=== PATIENT | male | born 1955 | race Caucasian/White ===

== ENCOUNTER 2016-09-24 11:16 | Inpatient (IN) | payer MEDICARE, OTHER ==
[2016-09-24] MEDS ORDERED: ACETAMINOPHEN TAB 500 MG TAB PO STA (11:33)
--- NOTE | 2016-09-24 11:36 | ED ---
General Adult HPI - General Chief complaint: Fever Stated complaint: Altered Mental Time Seen by Provider: 09/24/16 11:19 Source: patient, EMS, RN notes reviewed Mode of arrival: EMS Limitations: altered mental status - History of Present Illness Initial comments: Patient is a pleasant 61-year-old male presenting to the emergency department from halfway. There are concerns for hyponatremia and change in mental status. EMS has concerns for audible rales. Patient reportedly was recently discharged with MRSA. Patient has limited verbal capability. - Related Data Home Medications Medication Instructions Recorded Confirmed Montelukast [Singulair] 10 mg PO HS 11/06/14 09/24/16 Acetaminophen Tab [Tylenol Tab] 650 mg PO Q4H PRN 09/24/16 09/24/16 Budesonide [Pulmicort] 0.5 mg INHALATION RT-BID 09/24/16 09/24/16 Divalproex [Depakote] 500 mg PO HS 09/24/16 09/24/16 Folic Acid/Multivit-Min/Lutein 1 tab PO DAILY 09/24/16 09/24/16 [Therapeutic-M Tablet] Ipratropium-Albuterol Nebulize 3 ml INHALATION Q4H 09/24/16 09/24/16 [Duoneb 0.5 mg-3 mg/3 ml Soln] Magnesium Oxide [Mag-Ox] 400 mg PO DAILY 09/24/16 09/24/16 Nystatin 100,000 Unit/ml Susp 5 ml PO QID 09/24/16 09/24/16 [Mycostatin Oral Susp] QUEtiapine FUMARATE [SEROquel] 25 mg PO QAM 09/24/16 09/24/16 QUEtiapine FUMARATE [SEROquel] 300 mg PO HS 09/24/16 09/24/16 guaiFENesin [Mucinex] 1,200 mg PO Q12H 09/24/16 09/24/16 Previous Rx's Medication Instructions Recorded Allopurinol [Zyloprim] 100 mg PO DAILY tab 04/11/16 Atorvastatin [Lipitor] 10 mg PO HS tab 04/11/16 Benztropine Mesylate [Cogentin] 1 mg PO DAILY #30 tab 04/11/16 Clopidogrel [Plavix] 75 mg PO DAILY tab 04/11/16 Allergies Allergy/AdvReac Type Severity Reaction Status Date / Time aspirin Allergy Severe Anaphylaxis Verified 09/24/16 11:26 Salicylates Allergy Severe Anaphylaxis Verified 09/24/16 11:26 iodine Allergy Dyspnea Verified 09/24/16 11:26 iohexol [From Omnipaque 140] Allergy Dyspnea Verified 09/24/16 11:26 Milk Containing Products Allergy Abdominal Verified 09/24/16 11:26 Pain, WHEEZING prednisone Allergy Confusion, Verified 09/24/16 11:26 SEMI COMATOSE strawberry Allergy Anaphylaxis Verified 09/24/16 11:26 chocolate Allergy Unknown Wheezing Uncoded 09/24/16 11:26 fresh corn Allergy Unknown Unknown Uncoded 09/24/16 11:26 nut Allergy Anaphylaxis Uncoded 09/24/16 11:26 Review of Systems ROS Statement: Those systems with pertinent positive or pertinent negative responses have been documented in the HPI. ROS Other: All systems not noted in ROS Statement are negative. Limitations: ROS unobtainable due to patients medical condition Constitutional: Reports: fever Respiratory: Reports: cough, dyspnea Neurological: Reports: confusion Past Medical History Past Medical History: Asthma, GERD/Reflux, Hearing Disorder / Deafness, Osteoarthritis (OA) Additional Past Medical History / Comment(s): GOUT History of Any Multi-Drug Resistant Organisms: None Reported Past Surgical History: Ear Surgery, Hernia Repair Additional Past Surgical History / Comment(s): ARTHRSCOPIC RIGHT AND LEFT SHOULDER, RIGHT FOOT Past Anesthesia/Blood Transfusion Reactions: Motion Sickness, Postoperative Nausea & Vomiting (PONV) Past Psychological History: Depression Additional Psychological History / Comment(s): NERVOUS BREAKDOWN R/T STEROID PRENISONE USE NOT ON MEDS NOW Smoking Status: Never smoker Past Alcohol Use History: None Reported Additional Past Alcohol Use History / Comment(s): drinked 6 pack a day in the pack in the past. pt quit 1991. Past Drug Use History: Marijuana - Past Family History Brother(s) Family Medical History: Hypertension Sister(s) Family Medical History: No Reported History Son(s) Family Medical History: No Reported History Father Family Medical History: Cancer, Hypertension Additional Family Medical History / Comment(s): FROM STOMACH CANCER Mother Family Medical History: COPD General Exam Limitations: altered mental status General appearance: alert Head exam: Present: atraumatic Eye exam: Present: normal appearance, PERRL ENT exam: Present: normal oropharynx Respiratory exam: Present: rales Cardiovascular Exam: Present: tachycardia GI/Abdominal exam: Present: soft. Absent: tenderness Extremities exam: Present: normal inspection Neurological exam: Present: alert, altered (Limited verbal capability. When asked his name he repeats "my name?"), other (Limited exam. No focal deficit.) Psychiatric exam: Present: flat affect Skin exam: Present: normal color Course Vital Signs 09/24/16 09/24/16 09/24/16 11:18 11:48 12:40 Temperature 101.2 F H 99.3 F Pulse Rate 106 H 95 Respiratory 18 18 16 Rate Blood Pressure 132/78 81/53 O2 Sat by Pulse 98 99 Oximetry 09/24/16 13:30 Temperature Pulse Rate 91 Respiratory 16 Rate Blood Pressure 93/55 O2 Sat by Pulse 97 Oximetry EKG Findings - EKG Comments: EKG Findings:: Sinus tach at 103. AL 172. QRS 90. QT 390. QTC 510. Normal axis. Normal QRS. Normal ST-T. Medical Decision Making - Medical Decision Making Patient does meet severe sepsis criteria. Patient has severe hyponatremia. Patient reevaluated. Case was again discussed with Dr. Dr. Arce, who will admit for Dr. Perez. 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 for hyponatremia - Lab Data Result diagrams: 09/24/16 11:33 09/24/16 11:33 Lab Results 09/24/16 09/24/16 09/24/16 Range/Units 11:33 11:33 11:33 WBC 5.3 (3.8-10.6) k/uL RBC 3.71 L (4.30-5.90) m/uL Hgb 12.5 L (13.0-17.5) gm/dL Hct 34.1 L (39.0-53.0) % MCV 92.1 (80.0-100.0) fL MCH 33.6 (25.0-35.0) pg MCHC 36.5 (31.0-37.0) g/dL RDW 13.4 (11.5-15.5) % Plt Count 100 L (150-450) k/uL Neutrophils % 68 % Lymphocytes % 14 % Monocytes % 14 % Eosinophils % 2 % Basophils % 0 % Neutrophils # 3.6 (1.3-7.7) k/uL Lymphocytes # 0.7 L (1.0-4.8) k/uL Monocytes # 0.7 (0-1.0) k/uL Eosinophils # 0.1 (0-0.7) k/uL Basophils # 0.0 (0-0.2) k/uL PT (9.0-12.0) sec INR (<1.1) APTT (22.0-30.0) sec Sodium (137-145) mmol/L Potassium (3.5-5.1) mmol/L Chloride (98-107) mmol/L Carbon Dioxide (22-30) mmol/L Anion Gap mmol/L BUN (9-20) mg/dL Creatinine (0.66-1.25) mg/dL Est GFR (MDRD) Af Amer (>60 ml/min/1.73 sqM) Est GFR (MDRD) Non-Af (>60 ml/min/1.73 sqM) Glucose (74-99) mg/dL Plasma Lactic Acid Lei (0.7-2.0) mmol/L Calcium (8.4-10.2) mg/dL Total Bilirubin (0.2-1.3) mg/dL AST (17-59) U/L ALT (21-72) U/L Alkaline Phosphatase (38-126) U/L Total Creatine Kinase 223 H (55-170) U/L CK-MB (CK-2) 3.5 H* (0.0-2.4) ng/mL CK-MB (CK-2) Rel Index 1.6 Troponin I <0.012 (0.000-0.034) ng/mL NT-Pro-B Natriuret Pep 126 pg/mL Total Protein (6.3-8.2) g/dL Albumin (3.5-5.0) g/dL Urine Color Urine Appearance (Clear) Urine pH (5.0-8.0) Ur Specific [place] (1.001-1.035) Urine Protein (Negative) Urine Glucose (UA) (Negative) Urine Ketones (Negative) Urine Blood (Negative) Urine Nitrite (Negative) Urine Bilirubin (Negative) Urine Urobilinogen (<2.0) mg/dL Ur Leukocyte Esterase (Negative) Influenza Type A RNA (Not Detectd) Influenza Type B (PCR) (Not Detectd) 09/24/16 09/24/16 09/24/16 Range/Units 11:33 11:33 11:33 WBC (3.8-10.6) k/uL RBC (4.30-5.90) m/uL Hgb (13.0-17.5) gm/dL Hct (39.0-53.0) % MCV (80.0-100.0) fL MCH (25.0-35.0) pg MCHC (31.0-37.0) g/dL RDW (11.5-15.5) % Plt Count (150-450) k/uL Neutrophils % % Lymphocytes % % Monocytes % % Eosinophils % % Basophils % % Neutrophils # (1.3-7.7) k/uL Lymphocytes # (1.0-4.8) k/uL Monocytes # (0-1.0) k/uL Eosinophils # (0-0.7) k/uL Basophils # (0-0.2) k/uL PT 11.3 (9.0-12.0) sec INR 1.1 (<1.1) APTT 29.3 (22.0-30.0) sec Sodium 111 L* (137-145) mmol/L Potassium 4.8 (3.5-5.1) mmol/L Chloride 77 L* (98-107) mmol/L Carbon Dioxide 25 (22-30) mmol/L Anion Gap 9 mmol/L BUN 18 (9-20) mg/dL Creatinine 0.72 (0.66-1.25) mg/dL Est GFR (MDRD) Af Amer >60 (>60 ml/min/1.73 sqM) Est GFR (MDRD) Non-Af >60 (>60 ml/min/1.73 sqM) Glucose 62 L (74-99) mg/dL Plasma Lactic Acid Lei 0.6 L (0.7-2.0) mmol/L Calcium 8.1 L (8.4-10.2) mg/dL Total Bilirubin 0.8 (0.2-1.3) mg/dL AST 51 (17-59) U/L ALT 27 (21-72) U/L Alkaline Phosphatase 74 (38-126) U/L Total Creatine Kinase (55-170) U/L CK-MB (CK-2) (0.0-2.4) ng/mL CK-MB (CK-2) Rel Index Troponin I (0.000-0.034) ng/mL NT-Pro-B Natriuret Pep pg/mL Total Protein 6.0 L (6.3-8.2) g/dL Albumin 3.2 L (3.5-5.0) g/dL Urine Color Urine Appearance (Clear) Urine pH (5.0-8.0) Ur Specific [place] (1.001-1.035) Urine Protein (Negative) Urine Glucose (UA) (Negative) Urine Ketones (Negative) Urine Blood (Negative) Urine Nitrite (Negative) Urine Bilirubin (Negative) Urine Urobilinogen (<2.0) mg/dL Ur Leukocyte Esterase (Negative) Influenza Type A RNA (Not Detectd) Influenza Type B (PCR) (Not Detectd) 09/24/16 09/24/16 Range/Units 11:47 11:47 WBC (3.8-10.6) k/uL RBC (4.30-5.90) m/uL Hgb (13.0-17.5) gm/dL Hct (39.0-53.0) % MCV (80.0-100.0) fL MCH (25.0-35.0) pg MCHC (31.0-37.0) g/dL RDW (11.5-15.5) % Plt Count (150-450) k/uL Neutrophils % % Lymphocytes % % Monocytes % % Eosinophils % % Basophils % % Neutrophils # (1.3-7.7) k/uL Lymphocytes # (1.0-4.8) k/uL Monocytes # (0-1.0) k/uL Eosinophils # (0-0.7) k/uL Basophils # (0-0.2) k/uL PT (9.0-12.0) sec INR (<1.1) APTT (22.0-30.0) sec Sodium (137-145) mmol/L Potassium (3.5-5.1) mmol/L Chloride (98-107) mmol/L Carbon Dioxide (22-30) mmol/L Anion Gap mmol/L BUN (9-20) mg/dL Creatinine (0.66-1.25) mg/dL Est GFR (MDRD) Af Amer (>60 ml/min/1.73 sqM) Est GFR (MDRD) Non-Af (>60 ml/min/1.73 sqM) Glucose (74-99) mg/dL Plasma Lactic Acid Lei (0.7-2.0) mmol/L Calcium (8.4-10.2) mg/dL Total Bilirubin (0.2-1.3) mg/dL AST (17-59) U/L ALT (21-72) U/L Alkaline Phosphatase (38-126) U/L Total Creatine Kinase (55-170) U/L CK-MB (CK-2) (0.0-2.4) ng/mL CK-MB (CK-2) Rel Index Troponin I (0.000-0.034) ng/mL NT-Pro-B Natriuret Pep pg/mL Total Protein (6.3-8.2) g/dL Albumin (3.5-5.0) g/dL Urine Color Yellow Urine Appearance Clear (Clear) Urine pH 7.5 (5.0-8.0) Ur Specific [place] 1.013 (1.001-1.035) Urine Protein Trace H (Negative) Urine Glucose (UA) Negative (Negative) Urine Ketones 3+ H (Negative) Urine Blood Negative (Negative) Urine Nitrite Negative (Negative) Urine Bilirubin Negative (Negative) Urine Urobilinogen <2.0 (<2.0) mg/dL Ur Leukocyte Esterase Negative (Negative) Influenza Type A RNA Not Detected (Not Detectd) Influenza Type B (PCR) Not Detected (Not Detectd) - Radiology Data Radiology results: image reviewed (T scan of the brain reveals no acute process. Chest x-ray shows left lower lobe infiltrate.) Critical Care Time Critical Care Time: Yes Total Critical Care Time: 34 Disposition Clinical Impression: Severe sepsis, Pneumonia, Hyponatremia Disposition: ADMITTED IP TO THIS HOSP Condition: Serious
[2016-09-24 11:49] LABS: Basophils % (A) 0 %; CH 33.6; CHCM 36.6; Eosinophils # (A) 0.1 k/uL (0-0.7); Eosinophils % (A) 2 %; HCT 34.1 % (39.0-53.0); HGB 12.5 gm/dL (13.0-17.5); Luc # (Auto) 0.11; Luc % (Auto) 2; Lymphocytes # (A) 0.7 k/uL (1.0-4.8); Lymphocytes % (A) 14 %; MCH 33.6 pg (25.0-35.0); MCHC 36.5 g/dL (31.0-37.0); MCV 92.1 fL (80.0-100.0); Monocytes # (A) 0.7 k/uL (0-1.0); Monocytes % (A) 14 %; Neutrophils # (A) 3.6 k/uL (1.3-7.7); Neutrophils % (A) 68 %; RBC 3.71 m/uL (4.30-5.90); RDW 13.4 % (11.5-15.5); WBC 5.3 k/uL (3.8-10.6); WBC (Perox) 5.11
[2016-09-24 11:57] LABS: Appearance,Urine Clear (Clear); Bilirubin,Urine Negative (Negative); Glucose,Urine (UA) Negative (Negative); Ketones,Urine 3+ (Negative); Leukocyte Esterase,Urine Negative (Negative); Nitrite,Urine Negative (Negative); PH, Urine 7.5 (5.0-8.0); Protein,Urine Trace (Negative); Specific Gravity,Urine 1.013 (1.001-1.035); UA Billing (MACRO vs. MICRO) CHEM; Urobilinogen,Urine <2.0 mg/dL (<2.0)
[2016-09-24 11:58] LABS: INR 1.1 (<1.1); Partial Thromboplastin Time 29.3 sec (22.0-30.0); Prothrombin Time 11.3 sec (9.0-12.0)
[2016-09-24] MEDS ORDERED: ACETAMINOPHEN IV (For NPO) 1,000 MG in SALINE 1 100ML.BAG IVPB STA (11:58)
[2016-09-24 12:02] LABS: ALT 27 U/L (21-72); AST 51 U/L (17-59); Alkaline Phosphatase 74 U/L (38-126); Anion Gap 9 mmol/L; Blood Urea Nitrogen 18 mg/dL (9-20); Calcium 8.1 mg/dL (8.4-10.2); Carbon Dioxide 25 mmol/L (22-30); Glucose 62 mg/dL (74-99); Non-African American GFR(MDRD) >60 (>60 ml/min/1.73 sqM); Potassium 4.8 mmol/L (3.5-5.1); Total Bilirubin 0.8 mg/dL (0.2-1.3)
[2016-09-24 12:07] LABS: Creatine Kinase 223 U/L (55-170)
[2016-09-24 12:10] LABS: Chloride 77 mmol/L (98-107); Sodium 111 mmol/L (137-145)
[2016-09-24] MEDS ORDERED: SODIUM CHLORIDE 0.9% 250 ML IV STA ×2 (12:12→14:41)
[2016-09-24] MEDS ORDERED: SODIUM CHLORIDE 0.9% 1,000 ML IV STA ×2 (12:12→14:12)
[2016-09-24 12:20] LABS: Troponin I <0.012 ng/mL (0.000-0.034)
[2016-09-24 12:30] LABS: Creatine Kinase MB 3.5 ng/mL (0.0-2.4)
--- NOTE | 2016-09-24 12:39 | XR ---
EXAMINATION TYPE: XR chest 2V DATE OF EXAM: 09/24/2016 12:34 PM COMPARISON: 04/05/2016 HISTORY: Shortness of breath TECHNIQUE: Frontal and lateral views of the chest are obtained. FINDINGS: Scattered senescent parenchymal changes noted. Hyperinflation compatible with COPD. Left lower lobe infiltrate. Correlate for pneumonia. Mild chronic elevation left hemidiaphragm. Heart size is stable. Mediastinal structures are stable and grossly unremarkable. No evidence for hilar prominence. Degenerative changes dorsal spine. IMPRESSION: 1. Left lower lobe infiltrate. Correlate for pneumonia. Radiographic follow-up until clearing is advi sed.
[2016-09-24] MEDS ORDERED: SODIUM CHLORIDE 0.9% 500 ML IV STA ×2 (12:53→14:41)
--- NOTE | 2016-09-24 13:14 | CT ---
EXAMINATION TYPE: CT brain wo con DATE OF EXAM: 09/24/2016 1:09 PM HISTORY: altered mental status CT DLP: 1121 mGycm. Automated Exposure Control for Dose Reduction was Utilized. TECHNIQUE: CT scan of the head is performed without contrast. COMPARISON: CT brain August 21, 2014. FINDINGS: There is no acute intracranial hemorrhage or midline shift identified. There is diffuse v entricular and sulcal prominence consistent with diffuse age-related cerebral atrophy. The globes ar e intact bilaterally. There is mucosal thickening involving bilateral ethmoid sinuses. There is mucos al thickening right sphenoid sinus and the anterior left sphenoid sinus. There is dependent opacifica tion with air-fluid levels in bilateral frontal sinuses. There is air-fluid level in left maxillary s inus. IMPRESSION:: No acute intracranial hemorrhage or midline shift. There is mild diffuse age-related c erebral atrophy and acute on chronic paranasal sinus disease all redemonstrated.
[2016-09-24] MEDS ORDERED: SODIUM CHLORIDE 0.9% 1,000 ML IV SCH (14:00)
[2016-09-24] MEDS ORDERED: LEVOFLOXACIN 750MG-D5W PMX 750 MG in DEXTROSE/WATER 1 150ML.BAG IVPB STA (14:00)
[2016-09-24] MEDS ORDERED: PNEUMONIA PROTOCOL UTILIZED 1 EACH MISC PO PRN (14:00)
[2016-09-24] MEDS ORDERED: ONDANSETRON 4 MG/2 ML VIAL IVP STA (15:33)
[2016-09-24] MEDS ORDERED: IPRATROPIUM-ALBUTEROL 3 ML NEB INHALATION SCH (16:00)
[2016-09-24] MEDS ORDERED: HYDROCORTISONE SUCCINATE 100 MG/2 ML VIAL IV SCH (16:00)
[2016-09-24] MEDS ORDERED: ACETAMINOPHEN TAB 325 MG TAB PO PRN (16:49)
[2016-09-24 18:04] LABS: ALT 33 U/L (21-72); AST 47 U/L (17-59); Alkaline Phosphatase 62 U/L (38-126); Anion Gap 8 mmol/L; Blood Urea Nitrogen 14 mg/dL (9-20); Calcium 7.5 mg/dL (8.4-10.2); Carbon Dioxide 21 mmol/L (22-30); Chloride 87 mmol/L (98-107); Glucose 72 mg/dL (74-99); Non-African American GFR(MDRD) >60 (>60 ml/min/1.73 sqM); Potassium 4.5 mmol/L (3.5-5.1); Total Bilirubin 0.7 mg/dL (0.2-1.3); Total Protein 5.5 g/dL (6.3-8.2)
[2016-09-24 18:13] LABS: Sodium 116 mmol/L (137-145)
[2016-09-24 18:18] LABS: Creatine Kinase 272 U/L (55-170)
[2016-09-24 18:30] LABS: Troponin I <0.012 ng/mL (0.000-0.034)
[2016-09-24 18:36] LABS: Creatine Kinase MB 3.6 ng/mL (0.0-2.4)
[2016-09-24] MEDS: IPRATROPIUM-ALBUTEROL 3 ML NEB INHALATION SCH ×2 (20:07→22:42)
[2016-09-24] MEDS: BUDESONIDE 0.5 MG/2 ML NEBU INHALATION SCH (20:07)
[2016-09-24] MEDS ORDERED: guaiFENesin 600 MG TABLET.ER PO SCH (21:00)
[2016-09-24] MEDS ORDERED: MONTELUKAST 10 MG TAB PO SCH (21:00)
[2016-09-24] MEDS ORDERED: HEPARIN SODIUM,PORCINE 5,000 UNIT/ML 1 ML VIAL SQ SCH (21:00)
--- NOTE | 2016-09-24 21:28 | CONS ---
DATE OF CONSULTATION: 09/24/2016 HISTORY OF PRESENT ILLNESS: The patient is a 61-year-old male who has a known history of severe asthma with COPD, where he was being treated for Pseudomonas and Tiffanie pneumoniae and was to continue with Fortaz twice a day at [facility]. He recently was discharged on Thursday09/22/2016 from [facility], where he had been there for 14 days. He had problems during his hospital course with steroid psychosis, where he was tried on Decadron. He eventually improved and was sent to [facility] for further antibiotic therapy. During his course there, he ended up with problems with acute mental status changes and was found to have sodium of 111 and chloride of 77. The patient is seen in the ED department at [facility], where he is more alert. He still does not quite recognize who I am, but otherwise he is coming around. He has quite tenacious purulent-type sputum, which will be sent for culture. He is ICU overflow. Infectious Disease and Psych have also been consulted. He is denying any chest pain or nausea, vomiting or diarrhea at this time. He does have a significant history of problems with GERD, deafness, bipolar I, history of TIA in the past, gout and history of MRSA in the past. He is followed by Dr. Mary Jane Choudhury in office. He does have a history of drinking in the past. He never smoked. He has used marijuana. He is somewhat pleasantly confused at this time. He initially had presented to [facility] with problems with shortness of breath and did have a PICC line insertion for his IV antibiotics. He briefly required a sitter for his steroid psychosis. He was also started on Depakote and Seroquel at that time. He was discharged with: 1. Tylenol. 2. Guaifenesin. 3. DuoNeb. 4. Nystatin. 5. Fortaz. 6. Seroquel and to continue with his home medications of 7. Allopurinol. 8. Cogentin. 9. Pulmicort. 10. Plavix. 11. Atorvastatin. 12. Singulair. 13. Vitamin B12 and 14. Thera-M. THE PATIENT IS FULL CODE. PATIENT'S ALLERGIES ARE MULTIPLE TO ASPIRIN, SALICYLATES, IODINE, IOHEXOL, MILK-CONTAINING PRODUCTS, PREDNISONE, STRAWBERRY, CHOCOLATE, FRESH CORN AND NUTS, IV STEROIDS. His home medications include: 1. Singular 10 mg at bedtime. 2. Mag-Ox 400 mg daily. 3. Depakote 500 mg at bedtime. 4. Plavix 75 mg daily. 5. Cogentin 1 mg daily. 6. Lipitor 10 mg at bedtime. 7. Zyloprim 100 mg daily. 8. Mucinex 1200 mg every 12 hours. 9. Seroquel 300 mg at bedtime and 25 mg daily. 10. Nystatin 5 mL q.i.d. for 3 more days. 11. DuoNeb q.4 hours. 12. Therapeutic-M daily. 13. Pulmicort twice a day and 14. Tylenol 650 mg every 4 hours as needed. FAMILY HISTORY: Significant for mother still being alive. Father from stomach cancer, where he had a history of hypertension. Mother has a history of COPD and he has 1 brother. SOCIAL HISTORY: The patient has 1 daughter, 1 son, alive and well. He has never smoked. He has done marijuana. He did drink about 6 beers daily in the past. He quit in 1991. He does reside with his mother. He has oxygen and nebulizer at home. He is . He used to work in a flower shop. He denies any recreational-type drugs. PAST SURGICAL HISTORY: Significant for Achilles tendon repair, hernia repair, myringotomy and bilateral rotator cuff repair, right foot surgery. PAST MEDICAL HISTORY: Significant for asthma, bowel obstruction, cellulitis, COPD, depression, GERD, gout, hearing disorder, H. pylori, hemorrhoids, hypothyroidism, motion sickness, OA, tendinitis, steroid psychosis, TIA. Review of systems was completed with patient. Head to toe assessment was done and is negative other than what is noted in his HPI . On physical examination, vital signs show temp 99.3, pulse 111, respiratory rate 16, blood pressure is 103/74 with noted low blood pressure of 75/52. Oxygen saturation 97% on 2L. LABS: WBC is 5.3, hemoglobin 12.5, hematocrit 34.1, platelets are 100. PT 11.3, INR 1.1. PTT 29.3. Sodium is 111, potassium 4.8, chloride 77, carbon dioxide 25, BUN 18, creatinine 0.72, glucose 62. Lactic acid is less than 0.05, calcium 8.1. Total bilirubin 0.8, AST 51, ALT 27, alkaline phosphatase 74. CK 223, CK-MB 3.5, CK relative index 1.6. Troponin less than 0.012. BNP is 126. Total protein 6, albumin 3.2. Influenza A and B are both not detected. Urine culture is pending. Brain CT scan shows no acute intracranial hemorrhage or midline shift with mild diffuse age-related cerebral atrophy and acute on chronic paranasal sinus disease, all re-demonstrated. Chest x-ray: Left lower lobe infiltrate, correlate for pneumonia. Radiographic followup until clearing is advised. GENERAL: He is a 61-year-old male who is waking up. He appears more alert at this time. HEENT: Head is atraumatic, normocephalic. Pupils are reactive. Mucous membranes slightly dry. NECK: Supple. Trachea is midline. No carotid bruits auscultated. Lung sounds with wheezes heard throughout. CARDIOVASCULAR: S1 and S2 is heard; regular. ABDOMEN: Soft. Bowel sounds are heard, nontender. EXTREMITIES: No edema. Dorsalis pedis pulses palpable. NEUROLOGIC: He is awake, alert. Some confusion. IMPRESSIONS: 1. Left lower lobe pneumonia with recent diagnosis of Pseudomonas and Tiffanie and has been on Fortaz. 2. Acute mental status changes. 3. Severe hyponatremia. Suspect large fluid ingestion. 4. Acute on chronic exacerbation of asthma/chronic obstructive pulmonary disease. 5. Bipolar I. 6. History recently of steroid psychosis. 7. Gastroesophageal reflux disease 8. History of acute respiratory failure PLAN: Labs will be ordered for the morning DuoNeb nebulizers will be ordered, Mucinex and Singulair. Will add GI and DVT prophylaxis Continue with antibiotic therapy. Will await for culture results for urine, blood and sputum. Oxygen to keep stats 92% or better. No steroids, as to his problems with psychosis. Will review his home medications and order as necessary. Thank you for the consultation. We will continue to follow patient closely with you and make further changes as necessary. I performed a history and physical examination of this patient and discussed the same with the dictator. I agree with the dictator's note. Any additional findings/opinions, etc. will be noted.
[2016-09-24] MEDS: QUEtiapine 100 MG TAB PO SCH (21:58)
[2016-09-24] MEDS: MONTELUKAST 10 MG TAB PO SCH (21:58)
[2016-09-24] MEDS: DIVALPROEX 500 MG TABLET.DR PO SCH (21:58)
[2016-09-24] MEDS: ATORVASTATIN 10 MG TAB PO SCH (21:59)
[2016-09-24] MEDS: NYSTATIN 100,000 UNIT/ML SUSP 500,000 UNIT/5 ML CUP PO SCH ×2 (21:59→23:41)
[2016-09-24] MEDS: guaiFENesin 600 MG TABLET.ER PO SCH (21:59)
[2016-09-24] MEDS ORDERED: IPRATROPIUM-ALBUTEROL 3 ML NEB INHALATION PRN (22:42)
[2016-09-24] MEDS ORDERED: IV VANCOMYCIN PER PHARMACY 1 EACH MISC MISCELLANE PRN (22:56)
[2016-09-24 23:35] VITALS: BMI 18.5
[2016-09-24] MEDS: HYDROCORTISONE SUCCINATE 100 MG/2 ML VIAL IV SCH (23:42)
[2016-09-25] MEDS ORDERED: VANCOMYCIN 1,500 MG in SODIUM CHLORIDE 0.9% 250 ML IVPB ONE ×2
[2016-09-25 00:37] LABS: Creatine Kinase 274 U/L (55-170)
[2016-09-25 00:49] LABS: Troponin I <0.012 ng/mL (0.000-0.034)
[2016-09-25 00:51] LABS: Creatine Kinase MB 4.4 ng/mL (0.0-2.4)
[2016-09-25] MEDS: PANTOPRAZOLE 40 MG TABLET PO SCH (06:35)
[2016-09-25 06:42] LABS: Basophils % (A) 0 %; CH 33.1; CHCM 34.3; Eosinophils % (A) 0 %; HCT 34.6 % (39.0-53.0); HDW 2.09; HGB 11.7 gm/dL (13.0-17.5); Luc # (Auto) 0.04; Luc % (Auto) 2; Lymphocytes # (A) 0.4 k/uL (1.0-4.8); Lymphocytes % (A) 19 %; MCH 32.7 pg (25.0-35.0); MCHC 33.7 g/dL (31.0-37.0); MCV 96.8 fL (80.0-100.0); Mean Platelet Volume 7.6; Monocytes # (A) 0.2 k/uL (0-1.0); Monocytes % (A) 9 %; Neutrophils # (A) 1.5 k/uL (1.3-7.7); Neutrophils % (A) 70 %; RBC 3.57 m/uL (4.30-5.90); RDW 13.9 % (11.5-15.5); WBC 2.1 k/uL (3.8-10.6); WBC (Perox) 2.37
[2016-09-25 07:01] LABS: ALT 25 U/L (21-72); AST 45 U/L (17-59); Alkaline Phosphatase 67 U/L (38-126); Anion Gap 8 mmol/L; Blood Urea Nitrogen 12 mg/dL (9-20); Calcium 8.3 mg/dL (8.4-10.2); Carbon Dioxide 27 mmol/L (22-30); Chloride 95 mmol/L (98-107); Glucose 116 mg/dL (74-99); Magnesium 2.2 mg/dL (1.6-2.3); Non-African American GFR(MDRD) >60 (>60 ml/min/1.73 sqM); Potassium 4.3 mmol/L (3.5-5.1); Sodium 130 mmol/L (137-145); Total Bilirubin 0.5 mg/dL (0.2-1.3); Total Protein 5.9 g/dL (6.3-8.2)
[2016-09-25] MEDS: BUDESONIDE 0.5 MG/2 ML NEBU INHALATION SCH ×2 (08:10→19:44)
[2016-09-25] MEDS: IPRATROPIUM-ALBUTEROL 3 ML NEB INHALATION SCH ×4 (08:10→19:44)
--- NOTE | 2016-09-25 09:03 | CONS ---
DATE OF CONSULTATION: 09/24/2016 REASON FOR CONSULTATION: Pneumonia. HISTORY OF PRESENT ILLNESS: The patient is a 61-year-old male who apparently was recently admitted to the [facility] where the patient was treated for a pseudomonas pneumonia. He has been getting Fortaz 2 grams every 8 hours. The patient currently has been at [facility] on the [place]. He was sent to the [facility] ER with mental status changes . The patient was brought to the ER and noticed to have a fever of 100.1 and he was noticed to be hypertensive requiring 2 fluid boluses. After fluid boluses the patient's blood pressure came up any he started getting more awake and alert. The patient continued to have a cough with significant amount of purulent sputum but no hemoptysis. Denied having any chest pain. Denies any nausea or vomiting. Denies any abdominal pain. No diarrhea. He is not a very good historian. The patient has been continued on Fortaz. ID was consulted for further recommendation regarding antibiotics. The patient did have a chest x-ray which showed evidence of left lower lobe pneumonia, though his white count was not significantly elevated. REVIEW OF SYSTEMS: Not reliably obtained because of his underlying mental status, though positives points have been made in the HPI. PAST MEDICAL HISTORY: Significant for asthma, COPD, depression, gastroesophageal reflux disease, gout, hypothyroidism, osteoarthritis, psychosis, TIA and recent pseudomonas pneumonia. PAST SURGICAL HISTORY: Achilles tendon repair, hernia repair, myringotomy, bilateral rotator cuff repair, right foot surgery. SOCIAL HISTORY: Significant for smoking, quit back in 1991. Currently was residing at [facility] on [facility]. FAMILY HISTORY: Father from stomach cancer. Mother with history of COPD. ALLERGIES: ASPIRIN,PENICILLIN. MEDICATIONS: 1. Tylenol. 2. DuoNeb. 3. Zyloprim. 4. Lipitor. 5. Cogentin. 6. Pulmicort. 7. Fortaz 2 g every 8 hours. 8. Depakote. 9. Lovenox. 10. Pepcid. 11. Mucinex. 12. SoluCortef. 13. Mag-Oxide. 14. Theragran. 15. Singulair. 16. Seroquel. 17. IV fluids. On examination, blood pressure 119/71 with a pulse of 95, temperature 98.7, T-max is 101.2. GENERAL DESCRIPTION: A middle-age male, looks older than his age, lying in bed, in no distress. No tachypnea or accessory muscles of respiration use. HEENT: Slight pallor. There is no scleral icterus. Oral mucous membrane dry. NECK: Trachea central. There is no thyromegaly. LUNGS: Unlabored breathing. Coarse breath sounds at left base. No wheeze. HEART: S1, S2. Regular rate and rhythm. ABDOMEN: Soft. No tenderness, no rigidity. EXTREMITIES: No edema of feet. SKIN EXAMINATION: No rash or mass palpable. NEUROLOGICAL: The patient is awake, alert, oriented x2. Mood and affect normal. LABS: Hemoglobin is 12.5, white count 5.3, BUN of 14, creatinine 0.61. Lactic acid 0.6. Urinalysis negative. Influenza A and B negative. Chest x-ray showing left lower lobe pneumonia. ASSESSMENT: Patient with sepsis in a patient admitted to the hospital with mental status changes, significant hypotension with systolic down to 80s, tachycardia with a heart rate of 106, fever of 101, meeting criteria for sepsis. Source is left lobe pneumonia. The patient has been recently admitted to the [facility] where apparently the culture was positive for Pseudomonas so the patient was on Fortaz. We need to cover for resistant Gram-positive pathogens in addition to gram-negative. PLAN: 1. Sputum culture has been repeated as well as blood cultures, sensitivity to follow. 2. Continue patient on Fortaz 2 g every 8 hours. Add vancomycin, pharmacy to dose with a target of 15. 3. Will follow up on the clinical condition and cultures to further adjust the medication if needed. Thank you for this consultation. I will follow this patient along with you. GENTRY
--- NOTE | 2016-09-25 09:15 | P.NPCON ---
History of Present Illness - Reason for Consult hyponatremia - History of Present Illness Reason for consultation: Hyponatremia History of present illness: Patient is a 61-year-old male seen in renal consultation for hyponatremia. His sodium at the time of admission on September 24 at 11 AM was 111. He received 2-1/2 L bolus of normal saline and was subsequently started on 0.9 saline at 50 mL an hour. Sodium level improved to 116 at 6 PM on September 24 and is up to 1:30 as of this morning. Patient presented from an [facility] with altered mental status and pneumonia. He is currently being treated for a left lower lobe pneumonia. GFR is at baseline with creatinine is 0.56 today. No vomiting or diarrhea. His oral intake is good. He does admit to drinking quite a bit of a water. He was hypotensive with systolic blood pressure as low as 70s on admission and is now improved in the range of 110-120 systolic. Patient is not a very reliable historian. Patient was recently admitted at [facility] and was treated for Pseudomonas pneumonia. Vital signs are stable. General: The patient appeared well nourished and normally developed. HEENT: Head exam is unremarkable. Neck is without jugular venous distension. LUNGS: Lungs are clear to auscultation and percussion. Breath sounds decreased. HEART: Rate and Rhythm are regular. First and second heart sounds normal. No murmurs, rubs or gallops. ABDOMEN: Abdominal exam reveals normal bowel sounds. Non-tender and non- distended. No evidence of peritonitis. EXTREMITITES: No clubbing, cyanosis, or edema. Past Medical History Past Medical History: Asthma, GERD/Reflux, Hearing Disorder / Deafness, Osteoarthritis (OA) Additional Past Medical History / Comment(s): GOUT History of Any Multi-Drug Resistant Organisms: None Reported Date of last positivie culture/infection: 09/22/2016 MDRO Source:: sputum Past Surgical History: Ear Surgery, Hernia Repair Additional Past Surgical History / Comment(s): ARTHRSCOPIC RIGHT AND LEFT SHOULDER, RIGHT FOOT Past Anesthesia/Blood Transfusion Reactions: Motion Sickness, Postoperative Nausea & Vomiting (PONV) Past Psychological History: Depression Additional Psychological History / Comment(s): NERVOUS BREAKDOWN R/T STEROID PRENISONE USE NOT ON MEDS NOW Smoking Status: Never smoker Past Alcohol Use History: None Reported Additional Past Alcohol Use History / Comment(s): drinked 6 pack a day in the pack in the past. pt quit 1991. Past Drug Use History: Marijuana - Past Family History Brother(s) Family Medical History: Hypertension Sister(s) Family Medical History: No Reported History Son(s) Family Medical History: No Reported History Father Family Medical History: Cancer, Hypertension Additional Family Medical History / Comment(s): FROM STOMACH CANCER Mother Family Medical History: COPD Medications and Allergies Home Medications Medication Instructions Recorded Confirmed Type Montelukast [Singulair] 10 mg PO HS 11/06/14 09/24/16 History Acetaminophen Tab [Tylenol Tab] 650 mg PO Q4H PRN 09/24/16 09/24/16 History Budesonide [Pulmicort] 0.5 mg INHALATION RT-BID 09/24/16 09/24/16 History Divalproex [Depakote] 500 mg PO HS 09/24/16 09/24/16 History Folic Acid/Multivit-Min/Lutein 1 tab PO DAILY 09/24/16 09/24/16 History [Therapeutic-M Tablet] Ipratropium-Albuterol Nebulize 3 ml INHALATION Q4H 09/24/16 09/24/16 History [Duoneb 0.5 mg-3 mg/3 ml Soln] Magnesium Oxide [Mag-Ox] 400 mg PO DAILY 09/24/16 09/24/16 History Nystatin 100,000 Unit/ml Susp 5 ml PO QID 09/24/16 09/24/16 History [Mycostatin Oral Susp] QUEtiapine FUMARATE [SEROquel] 25 mg PO QAM 09/24/16 09/24/16 History QUEtiapine FUMARATE [SEROquel] 300 mg PO HS 09/24/16 09/24/16 History guaiFENesin [Mucinex] 1,200 mg PO Q12H 09/24/16 09/24/16 History Allergies Allergy/AdvReac Type Severity Reaction Status Date / Time aspirin Allergy Severe Anaphylaxis Verified 09/24/16 11:26 Salicylates Allergy Severe Anaphylaxis Verified 09/24/16 11:26 iodine Allergy Dyspnea Verified 09/24/16 11:26 iohexol [From Omnipaque 140] Allergy Dyspnea Verified 09/24/16 11:26 Milk Containing Products Allergy Abdominal Verified 09/24/16 11:26 Pain, WHEEZING prednisone Allergy Confusion, Verified 09/24/16 11:26 SEMI COMATOSE strawberry Allergy Anaphylaxis Verified 09/24/16 11:26 chocolate Allergy Unknown Wheezing Uncoded 09/24/16 11:26 fresh corn Allergy Unknown Unknown Uncoded 09/24/16 11:26 nut Allergy Anaphylaxis Uncoded 09/24/16 11:26 Physical Exam Vitals: Vital Signs Temp Pulse Pulse Resp BP BP Pulse Ox 09/25/16 08:22 82 09/25/16 08:12 82 09/25/16 04:00 97.6 F 78 18 108/68 97 09/25/16 00:00 99.3 F 96 18 104/70 96 09/24/16 22:01 98.7 F 95 16 119/71 98 09/24/16 20:25 82 09/24/16 20:10 98.7 F 87 16 115/62 97 09/24/16 18:41 93 18 104/63 98 09/24/16 18:29 79 18 100/63 98 09/24/16 17:57 84 18 104/68 98 09/24/16 17:37 87 09/24/16 17:31 85 09/24/16 17:10 99.3 F 96 18 104/70 96 09/24/16 15:34 91 16 125/74 97 09/24/16 15:28 111 H 16 103/74 94 L 09/24/16 15:03 76 16 99/63 96 09/24/16 14:57 90 16 75/52 97 09/24/16 14:15 87 16 86/51 96 Intake and Output 09/24/16 09/25/16 09/25/16 22:59 06:59 14:59 Intake Total 360 Output Total 1200 Balance -1200 360 Intake: Oral 360 Output: Urine 1200 Other: Voiding Method Urinal # Voids 1 Weight 63.7 kg 63.7 kg Results - Lab Results Most recent lab results Calcium 8.3 mg/dL (8.4-10.2) L 09/25/16 06:06 Magnesium 2.2 mg/dL (1.6-2.3) 09/25/16 06:06 09/25/16 06:06 09/25/16 06:06 Assessment and Plan Plan: Assessment: #1. Hypovolemic hyponatremia which corrected rapidly with IV hydration. Sodium level CXI on admission on September 24 at 11 AM and is up to 1:30 on September 25 at 6 AM. #2. Sepsis secondary to left lower lobe pneumonia. Patient was recently diagnosed with Pseudomonas pneumonia. Plan: Discontinue normal saline. Start D5W to be run at 50 mL an hour. Repeat sodium level at 3 PM today. Check urine sodium, urine potassium, serum and urine osmolality. If sodium level not trending down, I will give him DDAVP to slow the correction of hyponatremia. Thank you for the consultation. I will continue to follow the patient with you during his hospital stay.
[2016-09-25] MEDS: BENZTROPINE MESYLATE 1 MG TAB PO SCH (09:18)
[2016-09-25] MEDS: MAGNESIUM OXIDE 400 MG TAB PO SCH (09:18)
[2016-09-25] MEDS: HYDROCORTISONE SUCCINATE 100 MG/2 ML VIAL IV SCH (09:18)
[2016-09-25] MEDS: ALLOPURINOL 100 MG TAB PO SCH (09:18)
[2016-09-25] MEDS: MULTIVITAMINS, THERA 1 EACH TAB PO SCH (09:18)
[2016-09-25] MEDS: CLOPIDOGREL 75 MG TAB PO SCH (09:18)
[2016-09-25] MEDS: FAMOTIDINE 20 MG TAB PO SCH (09:19)
[2016-09-25] MEDS: guaiFENesin 600 MG TABLET.ER PO SCH ×2 (09:19→20:17)
[2016-09-25] MEDS: QUEtiapine 25 MG TAB PO SCH (09:19)
[2016-09-25] MEDS: VANCOMYCIN 1,500 MG in SODIUM CHLORIDE 0.9% 250 ML IVPB SCH ×2 (09:27→16:39)
--- NOTE | 2016-09-25 10:26 | XR ---
EXAMINATION TYPE: XR chest 2V DATE OF EXAM: 09/25/2016 9:34 AM COMPARISON: Prior chest x-ray September HISTORY: Pneumonia TECHNIQUE: Frontal and lateral views of the chest are obtained. FINDINGS: There is no pleural effusion, or pneumothorax seen. Some patchy density suspected at the l eft lower lobe is thought to be improved. The cardiac silhouette size is within normal limits. Left-s ided PICC line is in place, distal tip is at the level of the cavoatrial junction. Biapical pleural t hickening is present. Prominent lung volume may be indicative of COPD. There is eventration of the le ft hemidiaphragm at the posterior aspect of the left hemithorax. There are overlying cardiac leads an d the patient is rotated. There may be spinal curvature. The osseous structures are intact. IMPRESSION: Improvement in aeration.
--- NOTE | 2016-09-25 12:46 | P.HPIM ---
History of Present Illness H&P Date: 09/24/16 Chief Complaint: Change in mental status, severe hyponatremia, left lower lobe pneumonia, fe 61-year-old male one of Dr. Perez's patient who was in the hospital from 09/08- 09/22/2016 for COPD exacerbation along with Pseudomonas and Tiffanie pneumonitis. Patient hospitalization was complicated by increased confusion secondary to psychosis from Decadron and steroid use. Patient had PICC line and was started on IV antibiotic for total of 7 days on Fortaz twice a day. Patient was sent to [facility] where he has been for the last week. He become with significant change in mental status the last few days especially the last 24 hours with more confusion not arousable not feeling well developed to have low-grade temperature with increased cough wheezes. His antibiotic was finished yesterday. Blood work was done today showed significant low sodium at 110. With his current symptoms decided to send patient to the emergency department to be evaluated was seen at [facility] chest x-ray revealed left lower lobe infiltrate. Temperature was 101.6. No significant elevated white blood cell CAT scan of the brain did not show any abnormality but surprisingly his sodium was still very low at 111. Patient is still not arousable still not doing well mentally. Started on IV hydration IV antibiotic and admit patient to the hospital for the above problem. Review of Systems Constitutional: Reports anorexia, Reports chronic headaches, Reports chronic pain, Reports daytime sleepiness, Reports fatigue, Reports fever, Reports lethargy, Reports malaise, Reports weakness, Reports weight loss, Denies as per HPI, Denies chills, Denies night sweats, Denies poor appetite, Denies sweats, Denies weight gain Eyes: bilateral as per HPI, bilateral blurred vision Ears: bilateral: decreased hearing, ear discharge Ears, nose, mouth and throat: Reports ant. neck pain, Reports nasal congestion, Reports nasal discharge, Reports sinus pressure, Denies as per HPI, Denies bleeding gums, Denies dental pain, Denies dysphagia, Denies epistaxis, Denies headache, Denies hoarseness, Denies mouth pain, Denies neck fullness/pressure, Denies neck lump, Denies nose pain, Denies odynophagia, Denies post-nasal drip, Denies sinus pain, Denies swelling in mouth, Denies swelling in throat, Denies sore throat, Denies vertigo, Denies voice changes Cardiovascular: Reports decreased exercise tolerance, Reports dyspnea on exertion, Reports edema, Reports high blood pressure, Reports irregular heart beat, Reports leg edema, Reports lightheadedness, Reports orthopnea, Reports paroxysmal nocturnal dyspnea, Reports rapid heart beat, Reports shortness of breath, Denies as per HPI, Denies chest pain, Denies claudication, Denies palpitations, Denies phlebitis, Denies syncope Respiratory: Reports congestion, Reports cough, Reports cough with sputum, Reports dyspnea, Reports respiratory infections, Reports wheezing, Denies as per HPI, Denies excessive sputum, Denies hemoptysis, Denies home oxygen, Denies pain, Denies pain on inspiration, Denies pleurisy, Denies sleep apnea, Denies snoring Gastrointestinal: Reports belching, Reports bloating, Reports dyspepsia, Reports indigestion, Reports nausea, Denies as per HPI, Denies abdominal pain, Denies BRBPR, Denies change in bowel habits, Denies coffee ground emesis, Denies constipation, Denies diarrhea, Denies early satiety, Denies excessive gas , Denies heartburn, Denies hematemesis, Denies hematochezia, Denies jaundice, Denies lactose intolerance, Denies loss of appetite, Denies melena, Denies vomiting Genitourinary: Reports nocturia, Reports polyuria, Reports urinary frequency, Denies as per HPI, Denies decreased libido, Denies difficulties fathering child , Denies discharge, Denies dysuria, Denies erectile dysfunction, Denies flank pain, Denies genital pain, Denies genital sores, Denies hematuria, Denies impotence, Denies incontinence, Denies kidney stones, Denies testicular lump, Denies testicular pain, Denies urinary hesitancy, Denies urinary retention Musculoskeletal: Reports limitation of motion, Reports low back pain, Reports neck pain, Reports neck stiffness, Denies as per HPI, Denies arm numbness/ tingling, Denies atrophy, Denies fractures, Denies frequent falls, Denies gait dysfunction, Denies hot joints, Denies leg numbness/tingling, Denies loss of height, Denies morning stiffness, Denies muscle cramps, Denies muscle weakness, Denies myalgias, Denies prior amputations, Denies redness of joints, Denies shooting arm pain, Denies shooting leg pain Integumentary: Reports rash, Reports sores, Denies as per HPI, Denies acne, Denies boils, Denies brittle nails, Denies change in hair/nails, Denies color changes, Denies darkening of skin, Denies depigmentation, Denies dryness, Denies foot/leg ulcers, Denies growths, Denies hirsutism, Denies lesions, Denies onychomycosis, Denies pruritus, Denies striae, Denies unusual bruising, Denies wounds Neurological: Reports ataxia, Reports change in mentation, Reports confusion, Reports gait dysfunction, Reports lack of coordination, Reports paresthesias, Reports spasticity, Reports tingling, Reports weakness, Denies as per HPI, Denies aphasia, Denies balance difficulties, Denies burning pain, Denies change in smell/taste, Denies change in speech, Denies convulsions, Denies double vision, Denies head injury, Denies headaches, Denies hearing difficulties, Denies loss of vision, Denies memory loss, Denies migraines, Denies motor disturbance, Denies numbness, Denies paralysis, Denies seizures, Denies sensory deficit, Denies syncope, Denies tic, Denies transient paralysis, Denies tremors , Denies vertigo, Denies visual changes Psychiatric: Reports anhedonia, Reports anxiety, Reports anxiety attacks, Reports confusion, Reports depression, Reports disorientation, Reports hypersomnia, Reports irritability, Reports memory loss, Reports sadness/ tearfulness, Reports sleep disturbances, Denies as per HPI, Denies change in appetite, Denies change in libido, Denies change in sleep habits, Denies difficulty concentrating, Denies hallucinations, Denies hopelessness, Denies insomnia, Denies mood swings, Denies paranoia, Denies suicidal ideation Endocrine: Reports cold intolerance, Reports fatigue, Reports heat intolerance, Reports high blood sugars, Reports palpitations, Reports polydipsia, Reports polyphagia, Reports polyuria, Denies as per HPI, Denies deepening of the voice, Denies excessive sweating, Denies excessive thirst, Denies flushing, Denies increase in ring/shoe/hat size, Denies low blood sugars, Denies nocturia, Denies proptosis, Denies recent glucocorticoid use, Denies thyroid mass, Denies weight change Hematologic/Lymphatic: Reports easy bruising, Denies as per HPI, Denies easy bleeding, Denies lymphadenopathy, Denies lymphedema, Denies thrombophilia Allergic/Immunologic: Reports allergic rhinitis, Denies as per HPI, Denies anaphylaxis, Denies angioedema, Denies gluten intolerance, Denies persistent infections, Denies seasonal allergies, Denies urticaria, Denies wheezing Past Medical History Past Medical History: Asthma, GERD/Reflux, Hearing Disorder / Deafness, Osteoarthritis (OA) Additional Past Medical History / Comment(s): GOUT History of Any Multi-Drug Resistant Organisms: None Reported Past Surgical History: Ear Surgery, Hernia Repair Additional Past Surgical History / Comment(s): ARTHRSCOPIC RIGHT AND LEFT SHOULDER, RIGHT FOOT Past Anesthesia/Blood Transfusion Reactions: Motion Sickness, Postoperative Nausea & Vomiting (PONV) Past Psychological History: Depression Additional Psychological History / Comment(s): NERVOUS BREAKDOWN R/T STEROID PRENISONE USE NOT ON MEDS NOW Smoking Status: Never smoker Past Alcohol Use History: None Reported Additional Past Alcohol Use History / Comment(s): drinked 6 pack a day in the pack in the past. pt quit 1991. Past Drug Use History: Marijuana - Past Family History Brother(s) Family Medical History: Hypertension Sister(s) Family Medical History: No Reported History Son(s) Family Medical History: No Reported History Father Family Medical History: Cancer, Hypertension Additional Family Medical History / Comment(s): FROM STOMACH CANCER Mother Family Medical History: COPD Medications and Allergies Home Medications Medication Instructions Recorded Confirmed Type Montelukast [Singulair] 10 mg PO HS 11/06/14 09/24/16 History Acetaminophen Tab [Tylenol Tab] 650 mg PO Q4H PRN 09/24/16 09/24/16 History Budesonide [Pulmicort] 0.5 mg INHALATION RT-BID 09/24/16 09/24/16 History Divalproex [Depakote] 500 mg PO HS 09/24/16 09/24/16 History Folic Acid/Multivit-Min/Lutein 1 tab PO DAILY 09/24/16 09/24/16 History [Therapeutic-M Tablet] Ipratropium-Albuterol Nebulize 3 ml INHALATION Q4H 09/24/16 09/24/16 History [Duoneb 0.5 mg-3 mg/3 ml Soln] Magnesium Oxide [Mag-Ox] 400 mg PO DAILY 09/24/16 09/24/16 History Nystatin 100,000 Unit/ml Susp 5 ml PO QID 09/24/16 09/24/16 History [Mycostatin Oral Susp] QUEtiapine FUMARATE [SEROquel] 25 mg PO QAM 09/24/16 09/24/16 History QUEtiapine FUMARATE [SEROquel] 300 mg PO HS 09/24/16 09/24/16 History guaiFENesin [Mucinex] 1,200 mg PO Q12H 09/24/16 09/24/16 History Allergies Allergy/AdvReac Type Severity Reaction Status Date / Time aspirin Allergy Severe Anaphylaxis Verified 09/24/16 11:26 Salicylates Allergy Severe Anaphylaxis Verified 09/24/16 11:26 iodine Allergy Dyspnea Verified 09/24/16 11:26 iohexol [From Omnipaque 140] Allergy Dyspnea Verified 09/24/16 11:26 prednisone Allergy Confusion, Verified 09/24/16 11:26 SEMI COMATOSE nut Allergy Anaphylaxis Uncoded 09/24/16 11:26 Physical Exam Vitals: Vital Signs Pulse Resp BP Pulse Ox 09/24/16 18:41 93 18 104/63 98 09/24/16 18:29 79 18 100/63 98 09/24/16 17:57 84 18 104/68 98 09/24/16 17:37 87 09/24/16 17:31 85 09/24/16 15:34 91 16 125/74 97 09/24/16 15:28 111 H 16 103/74 94 L 09/24/16 15:03 76 16 99/63 96 09/24/16 14:57 90 16 75/52 97 09/24/16 14:15 87 16 86/51 96 - Constitutional General appearance: no average body habitus, no cooperative, disheveled, mild distress, no morbidly obese, no no acute distress, no obese, no severe distress , no thin - EENT Eyes: abnormal pupil, no anicteric sclerae, no disc margins sharp, no edentulous , no EOMI, no PERRLA, no fundus normal, no photophobia, no dentition normal, no poor dentition, no ptosis, no scleral icterus, normal appearance ENT: no hard of hearing, no hearing grossly normal, no NA/AT, normal oropharynx , no other, no pharyngeal erythema, no thrush, no tonsillar exudates, no tonsillar swelling Ears: bilateral: normal, bulging - Neck Neck: no lymphadenopathy, normal ROM, no other, no rigidity, no stridor, no thyromegaly Carotids: bilateral: upstroke normal Thyroid: bilateral: normal size - Respiratory Respiratory: right: prolonged expiration, prolonged inspiration, bilateral: diminished, dullness, rales, rhonchi - Cardiovascular Rhythm: irregularly irregular Heart sounds: normal: S1, S2 Abnormal Heart Sounds: systolic murmur, S3 Gallop - Gastrointestinal General gastrointestinal: no absent bowel sounds, decreased bowel sounds, distended, no hepatomegaly, no hyperactive bowel sounds, normal bowel sounds, no organomegaly, no rigid, no scaphoid, soft, no splenomegaly, no tenderness, no umbilical hernia, no ventral hernia - Integumentary Integumentary: no calor, no cellulitis, no cyanotic, no decreased turgor, no flushed, no jaundiced, normal, no normal turgor, pale, rash, no ulcer - Neurologic Neurologic: CNII-XII intact - Musculoskeletal Musculoskeletal: no gait normal, generalized weakness, strength equal bilaterally, no right sided weakness, no left sided weakness - Psychiatric Psychiatric: A&O x's 3, no appropriate affect, no intact judgment & insight Results CBC & Chem 7: 09/25/16 06:06 09/25/16 06:06 Labs: Abnormal Lab Results - Last 24 Hours (Table) 09/24/16 09/24/16 09/24/16 Range/Units 15:20 17:38 17:42 Sodium 116 L* (137-145) mmol/L Chloride 87 L (98-107) mmol/L Carbon Dioxide 21 L (22-30) mmol/L Creatinine 0.61 L (0.66-1.25) mg/dL Glucose 72 L (74-99) mg/dL Plasma Lactic Acid Lei <0.5 L (0.7-2.0) mmol/L Calcium 7.5 L (8.4-10.2) mg/dL Total Creatine Kinase 272 H (55-170) U/L CK-MB (CK-2) 3.6 H* (0.0-2.4) ng/mL Total Protein 5.5 L (6.3-8.2) g/dL Albumin 2.8 L (3.5-5.0) g/dL Microbiology - Last 24 Hours (Table) 09/24/16 16:33 Sputum Culture - Preliminary Sputum Thrombosis Risk Factor Assmnt - DVT/VTE Prophylaxis DVT/VTE Prophylaxis: Pharmacologic Prophylaxis ordered, Mechanical Prophylaxis ordered Assessment and Plan Plan: 1 change in mental status: Most likely secondary to hyponatremia, pneumonia, infection and possible adrenal insufficiency try to treat all of the above. 2 severe hyponatremia most likely SIADH from his current current pneumonia and recurrent pneumonia as well patient also had most likely adrenal insufficiency especially with the use of steroids recently. Continue hydration repeat his sodium level daily we'll consult nephrology. 3 gram-negative pneumonia with recurrent symptoms: Despite having to use Fortaz through the IV for 7 days after his discharge from the hospital patient is still symptomatic and have high temperature today probably aspiration from new type of pneumonia will continue Fortaz for now we'll consult infectious disease repeat chest x-ray in CAT scan if needed. 4 possible adrenal insufficiency: With patient's current symptom will use hydrocortisone 100 mg every 8 hours for the next 24 hours and then cut down gradually without having to use or utilize Decadron or steroid if possible because of the event of psychosis last admission. 5 chronic history of bipolar disorders with acute psychosis: Has been on multiple medication was on Depakote Last time still currently on Seroquel along with Depakote 500 mg daily and Seroquel 200 mg a day. And Cogentin 1 mg daily. 6 COPD with mild exacerbation was off steroids from his last admission remain on Singulair along with DuoNeb and possible Pulmicort. 7 hyperlipidemia: Continue Lipitor 10 mg daily. 8 history of TIA: Has been on Plavix 75 mg daily. 9 chronic history of thrombocytopenia has been monitor doing lab on regular basis will try to avoid heparin subcutaneous if we can. 10 GI prophylaxis: Patient be on Pepcid 20 mg daily. 11 DVT prophylaxis: With his history of thrombocytopenia we'll avoid heparin but can use knee-high ROMI hose and Venodyne boots and if needed can use Lovenox 40 mg subcutaneous daily. CODE STATUS: Full code. Expectation from this admission: Patient in the hospital for more than 2 nights.
[2016-09-25] MEDS: NYSTATIN 100,000 UNIT/ML SUSP 500,000 UNIT/5 ML CUP PO SCH ×4 (13:01→22:42)
[2016-09-25] MEDS: DEXTROSE 5% IN WATER 1,000 ML IV SCH (13:02)
--- NOTE | 2016-09-25 13:07 | P.PN ---
Subjective 61-year-old male one of Dr. Perez's patient who was in the hospital from 09/08- 09/22/2016 for COPD exacerbation along with Pseudomonas and Tiffanie pneumonitis. Patient hospitalization was complicated by increased confusion secondary to psychosis from Decadron and steroid use. Patient had PICC line and was started on IV antibiotic for total of 7 days on Fortaz twice a day. Patient was sent [facility] where he has been for the last week. He become with significant change in mental status the last few days especially the last 24 hours with more confusion not arousable not feeling well developed to have low-grade temperature with increased cough wheezes. His antibiotic was finished yesterday. Blood work was done today showed significant low sodium at 110. With his current symptoms decided to send patient to the emergency department to be evaluated was seen at [facility] chest x-ray revealed left lower lobe infiltrate. Temperature was 101.6. No significant elevated white blood cell CAT scan of the brain did not show any abnormality but surprisingly his sodium was still very low at 111. Patient is still not arousable still not doing well mentally. Started on IV hydration IV antibiotic and admit patient to the hospital for the above problem. 09/25: Patient has been seen in consultation by Dr. Vargas with recommendations to continue Fortaz and added in vancomycin. Patient is also seen and followed by pulmonary medicine on continued on Pulmicort and DuoNeb treatments. Sodium is much improved to 130 and chloride 95. White count is down to 2.1. Platelet count is 100 Objective - Vital Signs Vital signs: Vital Signs Temp 97.6 F 09/25/16 04:00 Pulse 84 09/25/16 12:30 Resp 16 09/25/16 08:00 BP 112/60 09/25/16 08:00 Pulse Ox 95 09/25/16 08:00 Intake & Output 09/24/16 09/25/16 09/25/16 18:59 06:59 18:59 Intake Total 360 Output Total 1200 200 Balance -1200 160 Weight 63.7 kg 63.7 kg 63.7 kg Intake: Oral 360 Output: Urine 1200 200 Other: Voiding Method Urinal Urinal # Voids 1 # Bowel Movements 0 - Exam General appearance: no average body habitus, no cooperative, disheveled, mild distress, no morbidly obese, no no acute distress, no obese, no severe distress , no thin - EENT Eyes: abnormal pupil, no anicteric sclerae, no disc margins sharp, no edentulous , no EOMI, no PERRLA, no fundus normal, no photophobia, no dentition normal, no poor dentition, no ptosis, no scleral icterus, normal appearance ENT: no hard of hearing, no hearing grossly normal, no NA/AT, normal oropharynx , no other, no pharyngeal erythema, no thrush, no tonsillar exudates, no tonsillar swelling Ears: bilateral: normal, bulging - Neck Neck: no lymphadenopathy, normal ROM, no other, no rigidity, no stridor, no thyromegaly Carotids: bilateral: upstroke normal Thyroid: bilateral: normal size - Respiratory Respiratory: right: prolonged expiration, prolonged inspiration, bilateral: diminished, dullness, rales, rhonchi - Cardiovascular Rhythm: irregularly irregular Heart sounds: normal: S1, S2 Abnormal Heart Sounds: systolic murmur, S3 Gallop - Gastrointestinal General gastrointestinal: no absent bowel sounds, decreased bowel sounds, distended, no hepatomegaly, no hyperactive bowel sounds, normal bowel sounds, no organomegaly, no rigid, no scaphoid, soft, no splenomegaly, no tenderness, no umbilical hernia, no ventral hernia - Integumentary Integumentary: no calor, no cellulitis, no cyanotic, no decreased turgor, no flushed, no jaundiced, normal, no normal turgor, pale, rash, no ulcer - Neurologic Neurologic: CNII-XII intact - Musculoskeletal Musculoskeletal: no gait normal, generalized weakness, strength equal bilaterally, no right sided weakness, no left sided weakness - Psychiatric Psychiatric: A&O x's 3, no appropriate affect, no intact judgment & insight - Labs CBC & Chem 7: 09/25/16 06:06 09/25/16 06:06 Labs: Abnormal Lab Results - Last 24 Hours (Table) 09/24/16 09/24/16 09/24/16 Range/Units 15:20 17:38 17:42 WBC (3.8-10.6) k/uL RBC (4.30-5.90) m/uL Hgb (13.0-17.5) gm/dL Hct (39.0-53.0) % Plt Count (150-450) k/uL Lymphocytes # (1.0-4.8) k/uL Sodium 116 L* (137-145) mmol/L Chloride 87 L (98-107) mmol/L Carbon Dioxide 21 L (22-30) mmol/L Creatinine 0.61 L (0.66-1.25) mg/dL Glucose 72 L (74-99) mg/dL Plasma Lactic Acid Lei <0.5 L (0.7-2.0) mmol/L Calcium 7.5 L (8.4-10.2) mg/dL Total Creatine Kinase 272 H (55-170) U/L CK-MB (CK-2) 3.6 H* (0.0-2.4) ng/mL Total Protein 5.5 L (6.3-8.2) g/dL Albumin 2.8 L (3.5-5.0) g/dL 09/24/16 09/25/16 09/25/16 Range/Units 23:38 06:06 06:06 WBC 2.1 L (3.8-10.6) k/uL RBC 3.57 L (4.30-5.90) m/uL Hgb 11.7 L (13.0-17.5) gm/dL Hct 34.6 L (39.0-53.0) % Plt Count 100 L (150-450) k/uL Lymphocytes # 0.4 L (1.0-4.8) k/uL Sodium 130 L (137-145) mmol/L Chloride 95 L (98-107) mmol/L Carbon Dioxide (22-30) mmol/L Creatinine 0.56 L (0.66-1.25) mg/dL Glucose 116 H (74-99) mg/dL Plasma Lactic Acid Lei (0.7-2.0) mmol/L Calcium 8.3 L (8.4-10.2) mg/dL Total Creatine Kinase 274 H (55-170) U/L CK-MB (CK-2) 4.4 H* (0.0-2.4) ng/mL Total Protein 5.9 L (6.3-8.2) g/dL Albumin 3.1 L (3.5-5.0) g/dL Microbiology - Last 24 Hours (Table) 09/24/16 16:33 Gram Stain - Preliminary Sputum Sputum Culture - Preliminary Assessment and Plan Plan: 1 metabolic encephalopathy: Most likely secondary to hyponatremia, pneumonia, infection and possible adrenal insufficiency try to treat all of the above. Patient started on Cortef 10 mg twice daily. 2 severe hypovolemic hyponatremia. Patient is followed by nephrology. 3 gram-negative pneumonia and sepsis. Consults with infectious disease and pulmonary medicine appreciated. Patient is currently on Fortaz and vancomycin. 4 possible adrenal insufficiency: Cortef 10 mg twice daily started. 5 chronic history of bipolar disorders with acute psychosis: Has been on multiple medication was on Depakote Last time still currently on Seroquel along with Depakote 500 mg daily and Seroquel 200 mg a day. And Cogentin 1 mg daily. 6 COPD with mild exacerbation was off steroids from his last admission remain on Singulair along with DuoNeb and possible Pulmicort. 7 hyperlipidemia: Continue Lipitor 10 mg daily. 8 history of TIA: Has been on Plavix 75 mg daily. 9 chronic history of thrombocytopenia has been monitor doing lab on regular basis will try to avoid heparin subcutaneous if we can. 10 GI prophylaxis: Patient be on Pepcid 20 mg daily. 11 DVT prophylaxis: With his history of thrombocytopenia we'll avoid heparin but can use knee-high ROMI hose and Venodyne boots and if needed can use Lovenox 40 mg subcutaneous daily. CODE STATUS: Full code. Discharge plan: Return to [facility] Impression and plan of care have been directed as dictated by the signing physician. Lela Valdovinos nurse practitioner acting as scribe for signing physician. Time with Patient: Greater than 30
--- NOTE | 2016-09-25 15:20 | P.CN ---
Psychiatric Consult - . Consult date: 09/25/16 Consult:: IDENTIFYING DATA: He is a 61-year-old male admitted to medicine service from [facility] with mental status changes most likely related to a left lower lobe infiltrate. Medicine consulted psychiatry for evaluation of mental status changes and recommendation for the treatment of his chronic mental illness. HISTORY OF PRESENT ILLNESS: I reviewed the medical record and attempted to interview Mr. Zuleta. He was unable to provide a coherent history. He alleged she was living with his mother prior to admission and came to the hospital because he was feeling unwell. He has since improved and is "almost back to normal." He remembers having been discharged from the psychiatric unit in April of last year. He did not follow through with his outpatient appointment because he "did not want to." He also did not continue his psychotropic medications deliberately. He denied feeling depressed or having thoughts of or suicide. He denied homicidal ideation. He denied feeling persistently anxious, tense or nervous. He denied obsessions or compulsions. He denied psychotic symptoms such as auditory or visual hallucinations, ideas reference, thought insertion, thought broadcasting or thought control. He denied use of drugs or alcohol. PAST PSYCHIATRIC HISTORY: According to EMR he is had 3 admissions to the psychiatric unit; June 2014, August 2014, and April 2016. 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 His discharge medications from April 2016 included Haldol 5 mg and Seroquel 100 mg at bedtime. He had an appointment on 04/14/[address] [facility] with [address]. Bruno. SUBSTANCE USE HISTORY: He denied use of drugs and according to the medical record he has been abstinent from alcohol and drugs for "23 years". MENTAL STATUS EXAM: He presented as a frail-appearing 61-year-old male who was sitting comfortably in his hospital bed. He made eye contact but at times he did not appear to attend or concentrate on the interview. He had no distinguishing features or prominent physical abnormalities. He had a euphoric facial expression. He was alert and oriented to person, place and time. He showed no abnormality of psychomotor activity. His speech was spontaneous with increased rate and rhythm. He had no articulation difficulties. His affect was elevated but appropriate. He denied suicidal ideation or wishes. He denied homicidal ideation. He denied depressive cognitions such as hopelessness, helplessness or worthlessness. He did not express phobias, ideas reference, paranoid ideation or delusional thinking. His thinking was concrete and associations were not fully coherent or logical. He did not express perseveration, clang associations, neologisms or blocking. He denied hallucinations and did not appear to responding to internal stimuli. We completed the [facility] Orientation Memory and Concentration test. His total error score was 18; total error score greater than 10 is consistent with a dementia. I am uncertain whether the test results a reliable due to his difficulties with attention and concentration. He knew the month and year. He was able to register the memory phrase "Darío Rodriguez, [address] [place] [id number].". He estimated that time correctly without hour of the actual time. He did not, backwards successfully from 20. He stopped it way and appeared distracted by events in the room. He was unable to name the months of the year backwards ( beginning with May). He did not make an effort to complete the task. He did not recall the memory phrase. IMPRESSIONS: He is a 61-year-old male admitted to medicine service with change and mental status most likely related to a mean he acquired pneumonia. He has history of a psychiatric illness with multiple admissions to the psychiatric unit. He has a history of COPD that required periodic treatment with oral steroids. Two of his admissions to psychiatry were the result of treatment with steroids. 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 During our interview showed impairments in mentation, concentration and attention. He was easily distracted. His affect was inappropriately elevated. His thinking was not fully coherent or logical. His symptoms are consistent with a symone/hypomania but he may be also experiencing some cognitive impairments. I am certain of the cognitive impairments are transitory and related to his medical condition or result of a degenerative process. DIAGNOSES: Unspecified neurocognitive disorder, rule out delirium, unspecified bipolar disorder PLAN: Obtain a serum valproic acid level and adjust the dose of Depakote to achieve a serum valproic acid level greater than 60. He is not prescribed or taking a first generation antipsychotic; unless there is another reason for the Cogentin prescription not recommend to discontinue Cogentin. Will follow. 09/25/16 14:57
[2016-09-25] MEDS: ENOXAPARIN 40 MG/0.4 ML SYRINGE SQ SCH (16:33)
--- NOTE | 2016-09-25 17:43 | PN ---
DATE OF SERVICE: 09/25/2016 REASON FOR FOLLOWUP: Pneumonia. INTERVAL HISTORY: The patient is afebrile. He is currently breathing comfortably. Denies significant chest pain. Occasional cough. No abdominal pain or any diarrhea. On examination, blood pressure is 112/60 with a pulse of 84, temperature 97.6. He is 95% on 2 L nasal cannula. General description is a middle-aged male lying in bed in no distress. RESPIRATORY SYSTEM: Unlabored breathing. Clear to auscultation anteriorly. HEART: S1, S2. Regular rate and rhythm. ABDOMEN: Soft. No tenderness. EXTREMITIES: No edema of the feet. LABS: Hemoglobin 11.7, white count of 2.1 with a BUN 12, creatinine 0.56. Blood and sputum cultures currently pending. DIAGNOSTIC IMPRESSION AND PLAN: Patient admitted to hospital with sepsis. Source is pneumonia. Waiting for the cultures to finalize. The patient is responding to the current antibiotics in the form of Fortaz and vancomycin. They will be continued, adjusting them further based on the culture reports. Continue supportive care.
--- NOTE | 2016-09-25 17:45 | PN ---
DATE OF SERVICE: 09/25/2016 Patient is a 61-year-old male who was seen sitting up in bed, is awake, alert, afebrile, hemodynamically stable. States that he is feeling less short of breath. The patient is in no acute distress. On physical exam, vital signs, temp is 97.6, heart rate 84, respiratory rate 16, blood pressure is 112/60. O2 sats 95% on 2 liters O2 via nasal cannula. HEENT: Head is normocephalic, atraumatic. NECK: Supple. Trachea is midline. LUNGS: With decreased breath sounds and scattered expiratory wheezes. HEART: S1 and S2 are heard. Not tachycardic. ABDOMEN: Soft. Bowel sounds are positive. EXTREMITIES: With trace edema bilaterally. NEUROLOGIC: The patient is awake, alert, oriented. LABS: White count is 2.1, hemoglobin is 11.7, hematocrit 34.6 with 100,000 platelets. Sodium is 130, potassium is 4.3, chloride 95, CO2 is 27. Anion gap is 8, BUN 12, creatinine 0.56. Glucose is 116, calcium is 8.3. Magnesium is 2.2. Total bilirubin 0.5 AST is 45, ALT is 25, Alkaline phosphatase is 67. Total protein is 5.9. Albumin is 3.1. Chest x-ray that was done this a.m. shows improvement in aeration. IMPRESSION: 1. Left lower lobe pneumonia with recent diagnosis of Pseudomonas and Tiffanie and has been on Fortaz. 2. Acute mental status changes. 3. Severe hyponatremia, suspect large fluid ingestion. 4. Acute on chronic exacerbation of asthma/chronic obstructive pulmonary disease. 5. Bipolar I. 6. History of recent steroid psychosis. 7. Gastroesophageal reflux disease. 8. History of acute respiratory failure. PLAN: Continue current medications which have been reviewed with bronchodilators, aerosol steroids and Singulair. Continue IV antibiotics. Continue GI and DVT prophylaxis. Will add incentive spirometry and pulmonary hygiene. Increase activity as tolerated. Oxygen to maintain saturations greater than or equal to 90%. We will continue to follow the patient closely with you, making further changes as necessary.
[2016-09-25] MEDS: QUEtiapine 100 MG TAB PO SCH (20:17)
[2016-09-25] MEDS: DIVALPROEX 500 MG TABLET.DR PO SCH (20:17)
[2016-09-25] MEDS: MONTELUKAST 10 MG TAB PO SCH (20:17)
[2016-09-25] MEDS: ATORVASTATIN 10 MG TAB PO SCH (20:17)
[2016-09-25] MEDS: HYDROCORTISONE 10 MG TAB PO SCH (20:17)
[2016-09-25 23:37] VITALS: RESP 18
[2016-09-26] MEDS: VANCOMYCIN 1,500 MG in SODIUM CHLORIDE 0.9% 250 ML IVPB SCH ×2 (01:37→09:11)
[2016-09-26 01:44] LABS: Anion Gap 5 mmol/L; Blood Urea Nitrogen 10 mg/dL (9-20); Calcium 8.5 mg/dL (8.4-10.2); Carbon Dioxide 31 mmol/L (22-30); Chloride 93 mmol/L (98-107); Glucose 95 mg/dL (74-99); Non-African American GFR(MDRD) >60 (>60 ml/min/1.73 sqM); Potassium 3.7 mmol/L (3.5-5.1); Sodium 129 mmol/L (137-145)
[2016-09-26] MEDS: PANTOPRAZOLE 40 MG TABLET PO SCH (06:13)
[2016-09-26 06:42] LABS: Basophils % (A) 0 %; CHCM 35.1; Eosinophils % (A) 0 %; HCT 32.1 % (39.0-53.0); HDW 2.26; HGB 11.4 gm/dL (13.0-17.5); Luc # (Auto) 0.08; Luc % (Auto) 2; Lymphocytes # (A) 0.7 k/uL (1.0-4.8); Lymphocytes % (A) 22 %; MCH 33.6 pg (25.0-35.0); MCHC 35.6 g/dL (31.0-37.0); MCV 94.4 fL (80.0-100.0); Monocytes # (A) 0.5 k/uL (0-1.0); Monocytes % (A) 17 %; Neutrophils # (A) 1.9 k/uL (1.3-7.7); Neutrophils % (A) 59 %; RBC 3.41 m/uL (4.30-5.90); RDW 13.6 % (11.5-15.5); WBC 3.3 k/uL (3.8-10.6); WBC (Perox) 3.49
[2016-09-26 06:50] LABS: Anion Gap 5 mmol/L; Blood Urea Nitrogen 8 mg/dL (9-20); Calcium 8.5 mg/dL (8.4-10.2); Carbon Dioxide 33 mmol/L (22-30); Chloride 93 mmol/L (98-107); Glucose 91 mg/dL (74-99); Non-African American GFR(MDRD) >60 (>60 ml/min/1.73 sqM); Potassium 3.8 mmol/L (3.5-5.1); Sodium 131 mmol/L (137-145)
[2016-09-26] MEDS ORDERED: VANCOMYCIN TROUGH DUE 1 EACH MISC MISCELLANE ONE (07:00)
--- NOTE | 2016-09-26 07:43 | P.PN ---
Subjective Patient is seen in follow-up for hyponatremia. Patient presented with hypotension and was noted to have a left lower lobe pneumonia. His sodium level on admission on September 24 at 11:30 AM was 111. He did receive 2.5 L normal saline bolus and was subsequently started on normal saline at 50 mL an hour. His sodium level on September 5:40 AM was 1:30 and at that time nephrology was consulted. I started him on D5W and normal saline was discontinued. He still maintained on D5W at 50 mL an hour and sodium level was trending down and was 127 yesterday and is up to 131 this morning. He is not a very reliable historian. He is currently having breakfast. Denies any active complaints. Vital signs are stable. General: The patient appeared well nourished and normally developed. HEENT: Head exam is unremarkable. Neck is without jugular venous distension. LUNGS: Lungs are clear to auscultation and percussion. Breath sounds decreased. HEART: Rate and Rhythm are regular. First and second heart sounds normal. No murmurs, rubs or gallops. ABDOMEN: Abdominal exam reveals normal bowel sounds. Non-tender and non- distended. No evidence of peritonitis. EXTREMITITES: No clubbing, cyanosis, or edema. Objective - Vital Signs Vital signs: Vital Signs Temp 97.2 F L 09/26/16 07:00 Pulse 66 09/26/16 07:00 Resp 18 09/26/16 07:00 BP 142/87 09/26/16 07:00 Pulse Ox 95 09/26/16 07:00 Intake & Output 09/25/16 09/26/16 09/26/16 18:59 06:59 18:59 Intake Total 1078 1800 Output Total 200 2200 Balance 878 -400 Weight 63.7 kg 64.5 kg Intake: Intake, IV Titration 1200 Amount Dextrose 5% in Water 1, 500 000 ml @ 50 mls/hr IV . Q20H [facility] Rx#:[id number] Vancomycin 1,500 mg In 500 Sodium Chloride 0.9% 250 ml @ 125 mls/hr IVPB Q8HR [facility] Rx#:[id number] cefTAZidime 2 gm In 100 Sodium Chloride 0.9% 100 ml @ 100 mls/hr IVPB Q8H [facility] Rx#:[id number] cefTAZidime 2 gm In 100 Sodium Chloride 0.9% 100 ml @ 100 mls/hr IVPB Q8HR [facility] Rx#:[id number] Oral 1078 600 Output: Urine 200 2200 Other: Voiding Method Urinal Urinal # Voids 1 # Bowel Movements 0 - Labs CBC & Chem 7: 09/26/16 06:25 09/26/16 06:25 Labs: Abnormal Lab Results - Last 24 Hours (Table) 09/25/16 09/25/16 09/26/16 Range/Units 15:21 20:29 01:14 WBC (3.8-10.6) k/uL RBC (4.30-5.90) m/uL Hgb (13.0-17.5) gm/dL Hct (39.0-53.0) % Plt Count (150-450) k/uL Sodium 127 L 127 L 129 L (137-145) mmol/L Chloride 93 L (98-107) mmol/L Carbon Dioxide 31 H (22-30) mmol/L BUN (9-20) mg/dL Creatinine 0.50 L (0.66-1.25) mg/dL 09/26/16 09/26/16 Range/Units 06:25 06:25 WBC 3.3 L (3.8-10.6) k/uL RBC 3.41 L (4.30-5.90) m/uL Hgb 11.4 L (13.0-17.5) gm/dL Hct 32.1 L (39.0-53.0) % Plt Count 101 L (150-450) k/uL Sodium 131 L (137-145) mmol/L Chloride 93 L (98-107) mmol/L Carbon Dioxide 33 H (22-30) mmol/L BUN 8 L (9-20) mg/dL Creatinine 0.45 L (0.66-1.25) mg/dL Microbiology - Last 24 Hours (Table) 09/24/16 16:33 Gram Stain - Preliminary Sputum Sputum Culture - Preliminary Assessment and Plan Plan: Assessment: #1. Hypovolemic hyponatremia which corrected rapidly with IV hydration. Sodium level 111 on admission on September 24 at 11 AM and was up to 130 on September 25 at 6 AM. This morning it is 131. #2. Sepsis secondary to left lower lobe pneumonia. Patient was recently diagnosed with Pseudomonas pneumonia. Plan: Increase D5W to be run at 75 mL an hour. Repeat sodium level at 12 PM today. Check urine sodium, urine potassium, serum and urine osmolality. His sodium level later today states is stable, I will discontinue all IV fluids.
[2016-09-26 07:57] LABS: Manual Review Performed
[2016-09-26 07:58] LABS: RBC Morphology Normal
[2016-09-26] MEDS: DEXTROSE 5% IN WATER 1,000 ML IV SCH ×2 (08:42→13:14)
[2016-09-26] MEDS: IPRATROPIUM-ALBUTEROL 3 ML NEB INHALATION SCH ×2 (09:00→12:20)
[2016-09-26] MEDS: BUDESONIDE 0.5 MG/2 ML NEBU INHALATION SCH (09:00)
[2016-09-26] MEDS: MULTIVITAMINS, THERA 1 EACH TAB PO SCH (09:06)
[2016-09-26] MEDS: NYSTATIN 100,000 UNIT/ML SUSP 500,000 UNIT/5 ML CUP PO SCH ×2 (09:06→13:12)
[2016-09-26] MEDS: MAGNESIUM OXIDE 400 MG TAB PO SCH (09:06)
[2016-09-26] MEDS: ENOXAPARIN 40 MG/0.4 ML SYRINGE SQ SCH (09:06)
[2016-09-26] MEDS: CLOPIDOGREL 75 MG TAB PO SCH (09:07)
[2016-09-26] MEDS: ALLOPURINOL 100 MG TAB PO SCH (09:08)
[2016-09-26] MEDS: guaiFENesin 600 MG TABLET.ER PO SCH (09:09)
[2016-09-26] MEDS: HYDROCORTISONE 10 MG TAB PO SCH (09:13)
[2016-09-26] MEDS: FAMOTIDINE 20 MG TAB PO SCH (09:13)
[2016-09-26] MEDS: BENZTROPINE MESYLATE 1 MG TAB PO SCH (09:13)
[2016-09-26] MEDS: QUEtiapine 25 MG TAB PO SCH (09:14)
--- NOTE | 2016-09-26 11:05 | P.PN ---
Subjective Principal diagnosis: Hyponatremia, acute exacerbation of COPD Patient seen and examined. Patient is writing on a lymph node had. He is a poor historian. He states his breathing feels okay today. He states his cough is improving. Objective - Vital Signs Vital signs: Vital Signs Temp 97.2 F L 09/26/16 07:00 Pulse 84 09/26/16 09:01 Resp 18 09/26/16 07:00 BP 142/87 09/26/16 07:00 Pulse Ox 95 09/26/16 07:00 Intake & Output 09/25/16 09/26/16 09/26/16 18:59 06:59 18:59 Intake Total 1078 1800 Output Total 200 2200 Balance 878 -400 Weight 63.7 kg 64.5 kg Intake: Intake, IV Titration 1200 Amount Dextrose 5% in Water 1, 500 000 ml @ 50 mls/hr IV . Q20H [facility] Rx#:[id number] Vancomycin 1,500 mg In 500 Sodium Chloride 0.9% 250 ml @ 125 mls/hr IVPB Q8HR [facility] Rx#:[id number] cefTAZidime 2 gm In 100 Sodium Chloride 0.9% 100 ml @ 100 mls/hr IVPB Q8H [facility] Rx#:[id number] cefTAZidime 2 gm In 100 Sodium Chloride 0.9% 100 ml @ 100 mls/hr IVPB Q8HR [facility] Rx#:[id number] Oral 1078 600 Output: Urine 200 2200 Other: Voiding Method Urinal Urinal # Voids 1 # Bowel Movements 0 - Exam Gen.: Patient is alert, no acute distress, confused Cardiovascular: Regular rate and rhythm, S1/S2 Lungs: Coarse breath sounds bilaterally Abdomen: Soft nontender nondistended positive bowel sounds Extremities: No edema - Labs CBC & Chem 7: 09/26/16 06:25 09/26/16 06:25 Labs: Abnormal Lab Results - Last 24 Hours (Table) 09/25/16 09/25/16 09/26/16 Range/Units 15:21 20:29 01:14 WBC (3.8-10.6) k/uL RBC (4.30-5.90) m/uL Hgb (13.0-17.5) gm/dL Hct (39.0-53.0) % Plt Count (150-450) k/uL Lymphocytes # (1.0-4.8) k/uL Sodium 127 L 127 L 129 L (137-145) mmol/L Chloride 93 L (98-107) mmol/L Carbon Dioxide 31 H (22-30) mmol/L BUN (9-20) mg/dL Creatinine 0.50 L (0.66-1.25) mg/dL Osmolality (280-301) mosm/kg 09/26/16 09/26/16 09/26/16 Range/Units 06:25 06:25 06:25 WBC 3.3 L (3.8-10.6) k/uL RBC 3.41 L (4.30-5.90) m/uL Hgb 11.4 L (13.0-17.5) gm/dL Hct 32.1 L (39.0-53.0) % Plt Count 101 L (150-450) k/uL Lymphocytes # 0.7 L (1.0-4.8) k/uL Sodium 131 L (137-145) mmol/L Chloride 93 L (98-107) mmol/L Carbon Dioxide 33 H (22-30) mmol/L BUN 8 L (9-20) mg/dL Creatinine 0.45 L (0.66-1.25) mg/dL Osmolality 271 L (280-301) mosm/kg Microbiology - Last 24 Hours (Table) 09/24/16 16:33 Gram Stain - Final Sputum Sputum Culture - Final Assessment and Plan Plan: Left lower lobe pneumonia, recent Pseudomonas and Tiffanie, patient has been on Fortaz Altered mental status Chronic hypoxic respiratory failure Severe hyponatremia Acute exacerbation of COPD Bipolar disorder History of recent steroid psychosis GERD Pancytopenia Pulmonary cachexia O2 to maintain saturation greater than or equal to 88% Avoid steroids secondary to history of psychosis Bronchodilators and Pulmicort Antibiotics per ID Incentive spirometry and pulmonary hygiene GI and DVT prophylaxis IV fluids per nephrology Singulair Mucinex
--- NOTE | 2016-09-26 12:03 | P.DS ---
Providers Date of admission: 09/24/16 14:00 Expected date of discharge: 09/26/16 Attending physician: Darío Arce Consults: 09/24/16 14:02 Consult Physician Urgent Consulting Provider: Antoni Antoine Consult Reason/Comments: hyponatremia Do you want consulting provider notified?: Yes 09/24/16 14:57 Consult Physician Urgent Consulting Provider: Claudia García Consult Reason/Comments: Critical care, pneumonia Do you want consulting provider notified?: Already Contacted 09/24/16 15:13 Consult Physician Urgent Consulting Provider: Darío Tatum Consult Reason/Comments: med review, psychiatric care Do you want consulting provider notified?: Yes 09/24/16 15:18 Consult Physician Urgent Consulting Provider: Darío Simmons Consult Reason/Comments: sepsis, pneumonia Do you want consulting provider notified?: Yes 09/25/16 10:50 Consult Physician Routine Consulting Provider: Cynthia Darnell Consult Reason/Comments: pseudomonas pneumonia at [facility] Do you want consulting provider notified?: Yes Primary care physician: Lynette Perez Hospital Course: 61-year-old male one of Dr. Perez's patient who was in the hospital from 09/08- 09/22/2016 for COPD exacerbation along with Pseudomonas and Tiffanie pneumonitis. Patient hospitalization was complicated by increased confusion secondary to psychosis from Decadron and steroid use. Patient had PICC line and was started on IV antibiotic for total of 7 days on Fortaz twice a day. Patient was sent to [facility] where he has been for the last week. He become with significant change in mental status the last few days especially the last 24 hours with more confusion not arousable not feeling well developed to have low-grade temperature with increased cough wheezes. His antibiotic was finished yesterday. Blood work was done today showed significant low sodium at 110. With his current symptoms decided to send patient to the emergency department to be evaluated was seen at [facility] chest x-ray revealed left lower lobe infiltrate. Temperature was 101.6. No significant elevated white blood cell CAT scan of the brain did not show any abnormality but surprisingly his sodium was still very low at 111. Patient is still not arousable still not doing well mentally. Started on IV hydration IV antibiotic and admit patient to the hospital for the above problem. 09/25: Patient has been seen in consultation by Dr. Darnell with recommendations to continue Fortaz and added in vancomycin. Patient is also seen and followed by pulmonary medicine on continued on Pulmicort and DuoNeb treatments. Sodium is much improved to 130 and chloride 95. White count is down to 2.1. Platelet count is 100 09/26: Nephrology has increased fluids to D5W at 75 mL per hour. Repeat sodium to be done at 12. If this sodium is improved, IV fluids can be discontinued. Sodium is currently 131 with chloride of 93, CO2 is 33. Patient has been seen by psychiatry. Valproic acid level with goal level of greater than 60. This is need to be checked at the intermediate. Patient will be discharged back to [facility] today in stable condition.. Discharge Diagnoses: 1 metabolic encephalopathy: Most likely secondary to hyponatremia, pneumonia 2 severe hypovolemic hyponatremia. 3 gram-negative pneumonia and sepsis. 4 possible adrenal insufficiency 5 chronic history of bipolar disorders with acute psychosis 6 COPD with mild exacerbation 7 hyperlipidemia 8 history of TIA 9 chronic history of thrombocytopenia Discharge plan: Return to [facility] Impression and plan of care have been directed as dictated by the signing physician. Lela Valdovinos nurse practitioner acting as scribe for signing physician. Patient Condition at Discharge: Good Plan - Discharge Summary New Discharge Prescriptions: cefTAZidime [Fortaz] 2 gm IVPB Q8HR #21 vial Discharge Medication List Montelukast [Singulair] 10 mg PO HS 11/06/14 [History] Allopurinol [Zyloprim] 100 mg PO DAILY tab 04/11/16 [Rx] Atorvastatin [Lipitor] 10 mg PO HS tab 04/11/16 [Rx] Benztropine Mesylate [Cogentin] 1 mg PO DAILY #30 tab 04/11/16 [Rx] Clopidogrel [Plavix] 75 mg PO DAILY tab 04/11/16 [Rx] Acetaminophen Tab [Tylenol] 650 mg PO Q4H PRN 09/24/16 [History] Budesonide [Pulmicort] 0.5 mg INHALATION RT-BID 09/24/16 [History] Divalproex [Depakote] 500 mg PO HS 09/24/16 [History] Folic Acid/Multivit-Min/Lutein [Therapeutic-M Tablet] 1 tab PO DAILY 09/24/16 [ History] Ipratropium-Albuterol Nebulize [Duoneb 0.5 mg-3 mg/3 ml Soln] 3 ml INHALATION Q4H 09/24/16 [History] Magnesium Oxide [Mag-Ox] 400 mg PO DAILY 09/24/16 [History] Nystatin 100,000 Unit/ml Susp [Mycostatin Oral Susp] 5 ml PO QID 09/24/16 [ History] QUEtiapine FUMARATE [SEROquel] 25 mg PO QAM 09/24/16 [History] QUEtiapine FUMARATE [SEROquel] 300 mg PO HS 09/24/16 [History] guaiFENesin [Mucinex] 1,200 mg PO Q12H 09/24/16 [History] cefTAZidime [Fortaz] 2 gm IVPB Q8HR #21 vial 09/26/16 [Rx] Follow up Appointment(s)/Referral(s): Lynette Perez MD [Primary Care Provider] - 1 Week Ambulatory/Diagnostic Orders: Complete Blood Count w/diff [LAB.AMB] Location: Determined By Patient Comprehensive Metabolic Panel [LAB.AMB] Location: Determined By Patient Discharge Disposition: TRANSFER TO SNF/ECF
--- NOTE | 2016-09-26 14:08 | PN ---
DATE OF SERVICE: 09/26/2016 Reason for followup is pneumonia. INTERVAL HISTORY: The patient is afebrile. He is feeling better. His breathing has improved. The cough has decreased in intensity. The patient denies having any chest pain. No abdominal pain. No diarrhea. On examination, blood pressure 142/87 with a pulse of 66, temperature 97.2, he is 95% on room air. General description is a middle-age male, up in the room in no distress. RESPIRATORY SYSTEM: Unlabored breathing with decreased intensity in breath sounds, no wheeze. HEART: S1, S2, regular rate and rhythm. ABDOMEN: Soft. No tenderness. LABS: Hemoglobin 11.4, white count of 3.3 with BUN of 8, creatinine 0.45. Sputum has been moderate respiratory martha. Blood culture has been negative. DIAGNOSTIC IMPRESSION AND PLAN: Patient admitted to hospital with sepsis and the patient has been treated at an outpatient with pseudomonas pneumonia. Patient did have a repeat blood and sputum culture negative. PLAN: At this time to finish therapy for his recent episode of pseudomonas pneumonia with Fortaz 2 gm q.8 for another week to 10 days with close outpatient followup.
--- NOTE | 2016-09-26 14:37 | P.PN ---
Progress Note - Text SUBJECTIVE: I reviewed the medical record and interviewed Mr. Zuleta. He told me that he is "going to [facility]" where he would have a room "just like this." I asked him if this was a place where he is living before he came in hospital and he contracted me "no I was living with my mother." He denied problems or concerns. He denied feeling depressed or having thoughts of or suicide. He denied chronic or persistent anxiety. He denied psychotic symptoms such as auditory or visual hallucinations, ideas reference, thought insertion, thought broadcasting or thought control. He perseverated about the bedside urinal and the bruising on his abdomen. OBJECTIVE: He presented as a casually groomed elderly male who was wearing a hospital gown. He was standing next to bed when I entered the room. He is pleasant on approach. He appeared to attend to the interview. His affect was blunted but stable and appropriate. His speech was spontaneous and slightly dysarthric. His thinking was very concrete but coherent. He did not appear to be responding to internal stimuli. ASSESSMENT: From a psychiatric perceptive he is stable. PLAN: I changed the serum valproic acid level every morning since we usually evaluate dose of Depakote from the trough level. Since he is being discharged today his outpatient provider may monitor his Depakote.
[2016-09-26 15:26] VITALS: BP 144/81; PULSE 67; TEMP 95.9
[2016-09-26] MEDS ORDERED: VANCOMYCIN 1,250 MG in SODIUM CHLORIDE 0.9% 250 ML IVPB SCH (16:00)
== END 2016-09-26 16:27 | DRG 871 ==
LOC: EC 11:16 → 6ICU 14:00 → 6SEL 20:40
PROVIDERS: ADMIT Internal Medicine Geriatric Medicine; ATTEND Internal Medicine Geriatric Medicine
DX: A41.9 Sepsis, unspecified organism (principal); G93.41 Metabolic encephalopathy; J15.1 Pneumonia due to Pseudomonas; D61.818 Other pancytopenia; J96.11 Chronic respiratory failure with hypoxia; E22.2 Syndrome of inappropriate secretion of antidiuretic hormone; J44.0 Chronic obstructive pulmonary disease with (acute) lower respiratory infection; J45.901 Unspecified asthma with (acute) exacerbation; E27.40 Unspecified adrenocortical insufficiency; J44.1 Chronic obstructive pulmonary disease with (acute) exacerbation; F23 Brief psychotic disorder; I10 Essential (primary) hypertension; K21.9 Gastro-esophageal reflux disease without esophagitis; M19.91 Primary osteoarthritis, unspecified site; M10.9 Gout, unspecified; H91.90 Unspecified hearing loss, unspecified ear; E03.9 Hypothyroidism, unspecified; F31.9 Bipolar disorder, unspecified; E78.5 Hyperlipidemia, unspecified; Z87.01 Personal history of pneumonia (recurrent); Z86.73 Personal history of transient ischemic attack (TIA), and cerebral infarction without residual deficits; Z86.14 Personal history of Methicillin resistant Staphylococcus aureus infection; Z79.02 Long term (current) use of antithrombotics/antiplatelets; Z79.51 Long term (current) use of inhaled steroids; Z79.899 Other long term (current) drug therapy; Z82.5 Family history of asthma and other chronic lower respiratory diseases
CPT/HCPCS: 36415; 70450; 71020; 80048; 80053; 80202; 81003; 82533; 82550; 82553; 83605; 83615; 83735; 83880; 83930; 84295; 84484; 85025; 85610; 85730; 87040; 87070; 87086; 87205; 87502; 93005; 94640

== ENCOUNTER 2017-01-29 07:44 | Inpatient (IN) | payer MEDICARE, OTHER ==
[2017-01-29] MEDS ORDERED: SODIUM CHLORIDE 0.9% 500 ML IV STA (08:12)
--- NOTE | 2017-01-29 08:13 | ED ---
General Adult HPI - General Source: patient, EMS, RN notes reviewed Mode of arrival: EMS <Maranda Etienne - Last Filed: 01/29/17 10:30> <Bryant Patrick - Last Filed: 01/31/17 07:20> - General Chief complaint: Psychiatric Symptoms Stated complaint: mental health Time Seen by Provider: 01/29/17 08:01 - History of Present Illness Initial comments: 62-year-old male presents to the emergency department with a chief complaint of confusion and agitation. Patient has been having this for the past few days her [facility] staff. He is currently being treated for MRSA pneumonia and is on outpatient IV antibiotics. He states he continues to have shortness of breath and cough associated with this but he is no other symptoms. The patient states that he normally lives with his mother and takes care of them but he feels as if he instructed this place every time that he tries to leave alarms going off. Patient is alert to person place and self. Patient denies any suicidal or homicidal ideation. Patient denies any health complaints at this time.Patient denies any recent fever, chills, shortness of breath, chest pain, back pain, abdominal pain, nausea vomiting, numbness or tingling, dysuria or hematuria, constipation or diarrhea, headaches or visual changes, or any other current symptoms. (Maranda Etienne) - Related Data Home Medications Medication Instructions Recorded Confirmed Montelukast [Singulair] 10 mg PO HS 11/06/14 01/29/17 Ipratropium-Albuterol Nebulize 3 ml INHALATION RT-Q4H 09/24/16 01/29/17 [Duoneb 0.5 mg-3 mg/3 ml Soln] Magnesium Oxide [Mag-Ox] 400 mg PO DAILY 09/24/16 01/29/17 Budesonide [Pulmicort] 1 mg INHALATION RT-BID 01/29/17 01/29/17 Cyanocobalamin [Vitamin B-12] 500 mcg PO DAILY 01/29/17 01/29/17 Divalproex ER [Depakote ER] 500 mg PO DAILY 01/29/17 01/29/17 QUEtiapine [SEROquel] 200 mg PO BID 01/29/17 01/29/17 Previous Rx's Medication Instructions Recorded Allopurinol [Zyloprim] 100 mg PO DAILY tab 04/11/16 Atorvastatin [Lipitor] 10 mg PO HS tab 04/11/16 Benztropine Mesylate [Cogentin] 1 mg PO DAILY #30 tab 04/11/16 Clopidogrel [Plavix] 75 mg PO DAILY tab 04/11/16 Allergies Allergy/AdvReac Type Severity Reaction Status Date / Time aspirin Allergy Severe Anaphylaxis Verified 01/29/17 10:16 Salicylates Allergy Severe Anaphylaxis Verified 01/29/17 10:16 iodine Allergy Dyspnea Verified 01/29/17 10:16 iohexol [From Omnipaque 140] Allergy Dyspnea Verified 01/29/17 10:16 prednisone Allergy Confusion, Verified 01/29/17 10:16 SEMI COMATOSE nut Allergy Anaphylaxis Uncoded 01/29/17 07:52 Review of Systems ROS Other: All systems not noted in ROS Statement are negative. <Maranda Etienne - Last Filed: 01/29/17 10:30> ROS Other: All systems not noted in ROS Statement are negative. <Bryant Patrick - Last Filed: 01/31/17 07:20> ROS Statement: Those systems with pertinent positive or pertinent negative responses have been documented in the HPI. Past Medical History Past Medical History: Asthma, GERD/Reflux, Hearing Disorder / Deafness, Osteoarthritis (OA) Additional Past Medical History / Comment(s): GOUT History of Any Multi-Drug Resistant Organisms: None Reported Date of last positivie culture/infection: 09/22/2016 MDRO Source:: sputum Past Surgical History: Ear Surgery, Hernia Repair Additional Past Surgical History / Comment(s): ARTHRSCOPIC RIGHT AND LEFT SHOULDER, RIGHT FOOT Past Anesthesia/Blood Transfusion Reactions: Motion Sickness, Postoperative Nausea & Vomiting (PONV) Past Psychological History: Depression Smoking Status: Never smoker Past Alcohol Use History: None Reported Past Drug Use History: Marijuana - Past Family History Brother(s) Family Medical History: Hypertension Sister(s) Family Medical History: No Reported History Son(s) Family Medical History: No Reported History Father Family Medical History: Cancer, Hypertension Additional Family Medical History / Comment(s): FROM STOMACH CANCER Mother Family Medical History: COPD <Maranda Etienne - Last Filed: 01/29/17 10:30> General Exam General appearance: alert, in no apparent distress Head exam: Present: atraumatic, normocephalic, normal inspection Eye exam: Present: normal appearance, PERRL, EOMI. Absent: scleral icterus, conjunctival injection, periorbital swelling ENT exam: Present: normal exam, mucous membranes moist Neck exam: Present: normal inspection. Absent: tenderness, meningismus, lymphadenopathy Respiratory exam: Present: decreased breath sounds. Absent: respiratory distress, chest wall tenderness, accessory muscle use Cardiovascular Exam: Present: regular rate, normal rhythm, normal heart sounds. Absent: systolic murmur, diastolic murmur, rubs, gallop, clicks Neurological exam: Present: alert, oriented X3 Psychiatric exam: Present: agitated Skin exam: Present: warm, dry, intact, normal color. Absent: rash <Maranda Etienne - Last Filed: 01/29/17 10:30> EKG Findings - EKG Comments: EKG Findings:: normal sinus rhythm 88 bpm, normal axis, no atopy, no S-T depressions or elevations, prolonged QT <Maranda Etienne - Last Filed: 01/29/17 10:30> Medical Decision Making - Lab Data Result diagrams: 01/29/17 08:30 01/29/17 08:30 - Radiology Data Radiology results: report reviewed, image reviewed <Maranda Etienne - Last Filed: 01/29/17 10:30> - Lab Data Result diagrams: 01/31/17 06:00 01/31/17 06:00 <Bryant Patrick - Last Filed: 01/31/17 07:20> - Medical Decision Making 62-year-old male presents to the emergency Department chief complaint confusion and agitation. Emergency department patient has been very agitated and confused. We are finding that he hypotension. This time we will admit the patient for acute psychosis along with hyponatremia. Patient does have a petition we will consult psych for further evaluation for the patient. This was discussed with Dr. Mills who is the patient's primary care doctor Dr. varela. To Dr. Arce regarding the admission. (Maranda Etienne) 62-year-old male presenting with confusion and agitation. Patient does. On examination. He was transferred from his extended care facility for evaluation. Patient is noted to have hyponatremia with a sodium 129 this may be contributing to his symptoms. He also has a history of MRSA pneumonia for which is currently receiving outpatient antibiotics through a PICC line. Patient will be for continued treatment of his hyponatremia as well as psychiatric evaluation. (Bryant Patrick) - Lab Data Lab Results 01/29/17 01/29/17 01/29/17 Range/Units 08:30 08:30 08:30 WBC 10.4 (3.8-10.6) k/uL RBC 3.95 L (4.30-5.90) m/uL Hgb 12.5 L (13.0-17.5) gm/dL Hct 37.6 L (39.0-53.0) % MCV 95.2 (80.0-100.0) fL MCH 31.8 (25.0-35.0) pg MCHC 33.4 (31.0-37.0) g/dL RDW 14.9 (11.5-15.5) % Plt Count 129 L (150-450) k/uL Neutrophils % (Manual) 49 % Lymphocytes % (Manual) 29 % Monocytes % (Manual) 11 % Eosinophils % (Manual) 11 % Neutrophils # (Manual) 5.10 (1.3-7.7) k/uL Lymphocytes # (Manual) 3.02 (1.0-4.8) k/uL Monocytes # (Manual) 1.14 H (0-1.0) k/uL Eosinophils # (Manual) 1.14 H (0-0.7) k/uL Nucleated RBCs 0 (0-0) /100 WBC RBC Morphology Normal PT (9.0-12.0) sec INR (<1.2) APTT (22.0-30.0) sec Sodium 128 L (137-145) mmol/L Potassium 4.1 (3.5-5.1) mmol/L Chloride 94 L (98-107) mmol/L Carbon Dioxide 24 (22-30) mmol/L Anion Gap 10 mmol/L BUN 22 H (9-20) mg/dL Creatinine 0.70 (0.66-1.25) mg/dL Est GFR (MDRD) Af Amer >60 (>60 ml/min/1.73 sqM) Est GFR (MDRD) Non-Af >60 (>60 ml/min/1.73 sqM) Glucose 42 L* (74-99) mg/dL POC Glucose (mg/dL) (75-99) mg/dL POC Glu [employer] ID Plasma Lactic Acid Lei 0.8 (0.7-2.0) mmol/L Calcium 8.4 (8.4-10.2) mg/dL Total Bilirubin 1.0 (0.2-1.3) mg/dL AST 43 (17-59) U/L ALT 30 (21-72) U/L Alkaline Phosphatase 80 (38-126) U/L Ammonia 9 (<30) umol/L Total Creatine Kinase (55-170) U/L CK-MB (CK-2) (0.0-2.4) ng/mL CK-MB (CK-2) Rel Index Troponin I (0.000-0.034) ng/mL Total Protein 6.1 L (6.3-8.2) g/dL Albumin 3.4 L (3.5-5.0) g/dL Amylase <30 L (30-110) U/L Lipase <10 L (23-300) U/L Urine Color Urine Appearance (Clear) Urine pH (5.0-8.0) Ur Specific [place] (1.001-1.035) Urine Protein (Negative) Urine Glucose (UA) (Negative) Urine Ketones (Negative) Urine Blood (Negative) Urine Nitrite (Negative) Urine Bilirubin (Negative) Urine Urobilinogen (<2.0) mg/dL Ur Leukocyte Esterase (Negative) Urine Opiates Screen (NotDetected) Ur Oxycodone Screen (NotDetected) Urine Methadone Screen (NotDetected) Ur Propoxyphene Screen (NotDetected) Ur Barbiturates Screen (NotDetected) Valproic Acid ug/mL U Tricyclic Antidepress (NotDetected) Ur Phencyclidine Scrn (NotDetected) Ur Amphetamines Screen (NotDetected) U Methamphetamines Scrn (NotDetected) U Benzodiazepines Scrn (NotDetected) Urine Cocaine Screen (NotDetected) U Marijuana (THC) Screen (NotDetected) Serum Alcohol <10 mg/dL 01/29/17 01/29/17 01/29/17 Range/Units 08:30 08:30 08:30 WBC (3.8-10.6) k/uL RBC (4.30-5.90) m/uL Hgb (13.0-17.5) gm/dL Hct (39.0-53.0) % MCV (80.0-100.0) fL MCH (25.0-35.0) pg MCHC (31.0-37.0) g/dL RDW (11.5-15.5) % Plt Count (150-450) k/uL Neutrophils % (Manual) % Lymphocytes % (Manual) % Monocytes % (Manual) % Eosinophils % (Manual) % Neutrophils # (Manual) (1.3-7.7) k/uL Lymphocytes # (Manual) (1.0-4.8) k/uL Monocytes # (Manual) (0-1.0) k/uL Eosinophils # (Manual) (0-0.7) k/uL Nucleated RBCs (0-0) /100 WBC RBC Morphology PT 12.6 H (9.0-12.0) sec INR 1.3 H (<1.2) APTT 24.2 (22.0-30.0) sec Sodium (137-145) mmol/L Potassium (3.5-5.1) mmol/L Chloride (98-107) mmol/L Carbon Dioxide (22-30) mmol/L Anion Gap mmol/L BUN (9-20) mg/dL Creatinine (0.66-1.25) mg/dL Est GFR (MDRD) Af Amer (>60 ml/min/1.73 sqM) Est GFR (MDRD) Non-Af (>60 ml/min/1.73 sqM) Glucose (74-99) mg/dL POC Glucose (mg/dL) (75-99) mg/dL POC Glu [employer] ID Plasma Lactic Acid Lei (0.7-2.0) mmol/L Calcium (8.4-10.2) mg/dL Total Bilirubin (0.2-1.3) mg/dL AST (17-59) U/L ALT (21-72) U/L Alkaline Phosphatase (38-126) U/L Ammonia (<30) umol/L Total Creatine Kinase 260 H (55-170) U/L CK-MB (CK-2) 13.7 H* (0.0-2.4) ng/mL CK-MB (CK-2) Rel Index 5.3 Troponin I 0.029 (0.000-0.034) ng/mL Total Protein (6.3-8.2) g/dL Albumin (3.5-5.0) g/dL Amylase (30-110) U/L Lipase (23-300) U/L Urine Color Yellow Urine Appearance Clear (Clear) Urine pH 6.0 (5.0-8.0) Ur Specific [place] 1.019 (1.001-1.035) Urine Protein Trace H (Negative) Urine Glucose (UA) Negative (Negative) Urine Ketones 2+ H (Negative) Urine Blood Negative (Negative) Urine Nitrite Negative (Negative) Urine Bilirubin Negative (Negative) Urine Urobilinogen <2.0 (<2.0) mg/dL Ur Leukocyte Esterase Negative (Negative) Urine Opiates Screen Not Detected (NotDetected) Ur Oxycodone Screen Not Detected (NotDetected) Urine Methadone Screen Not Detected (NotDetected) Ur Propoxyphene Screen Not Detected (NotDetected) Ur Barbiturates Screen Not Detected (NotDetected) Valproic Acid ug/mL U Tricyclic Antidepress Detected H (NotDetected) Ur Phencyclidine Scrn Not Detected (NotDetected) Ur Amphetamines Screen Not Detected (NotDetected) U Methamphetamines Scrn Not Detected (NotDetected) U Benzodiazepines Scrn Not Detected (NotDetected) Urine Cocaine Screen Not Detected (NotDetected) U Marijuana (THC) Screen Not Detected (NotDetected) Serum Alcohol mg/dL 01/29/17 01/29/17 Range/Units 08:30 09:53 WBC (3.8-10.6) k/uL RBC (4.30-5.90) m/uL Hgb (13.0-17.5) gm/dL Hct (39.0-53.0) % MCV (80.0-100.0) fL MCH (25.0-35.0) pg MCHC (31.0-37.0) g/dL RDW (11.5-15.5) % Plt Count (150-450) k/uL Neutrophils % (Manual) % Lymphocytes % (Manual) % Monocytes % (Manual) % Eosinophils % (Manual) % Neutrophils # (Manual) (1.3-7.7) k/uL Lymphocytes # (Manual) (1.0-4.8) k/uL Monocytes # (Manual) (0-1.0) k/uL Eosinophils # (Manual) (0-0.7) k/uL Nucleated RBCs (0-0) /100 WBC RBC Morphology PT (9.0-12.0) sec INR (<1.2) APTT (22.0-30.0) sec Sodium (137-145) mmol/L Potassium (3.5-5.1) mmol/L Chloride (98-107) mmol/L Carbon Dioxide (22-30) mmol/L Anion Gap mmol/L BUN (9-20) mg/dL Creatinine (0.66-1.25) mg/dL Est GFR (MDRD) Af Amer (>60 ml/min/1.73 sqM) Est GFR (MDRD) Non-Af (>60 ml/min/1.73 sqM) Glucose (74-99) mg/dL POC Glucose (mg/dL) 90 (75-99) mg/dL POC Glu [employer] ID Yady Elliott Plasma Lactic Acid Lei (0.7-2.0) mmol/L Calcium (8.4-10.2) mg/dL Total Bilirubin (0.2-1.3) mg/dL AST (17-59) U/L ALT (21-72) U/L Alkaline Phosphatase (38-126) U/L Ammonia (<30) umol/L Total Creatine Kinase (55-170) U/L CK-MB (CK-2) (0.0-2.4) ng/mL CK-MB (CK-2) Rel Index Troponin I (0.000-0.034) ng/mL Total Protein (6.3-8.2) g/dL Albumin (3.5-5.0) g/dL Amylase (30-110) U/L Lipase (23-300) U/L Urine Color Urine Appearance (Clear) Urine pH (5.0-8.0) Ur Specific [place] (1.001-1.035) Urine Protein (Negative) Urine Glucose (UA) (Negative) Urine Ketones (Negative) Urine Blood (Negative) Urine Nitrite (Negative) Urine Bilirubin (Negative) Urine Urobilinogen (<2.0) mg/dL Ur Leukocyte Esterase (Negative) Urine Opiates Screen (NotDetected) Ur Oxycodone Screen (NotDetected) Urine Methadone Screen (NotDetected) Ur Propoxyphene Screen (NotDetected) Ur Barbiturates Screen (NotDetected) Valproic Acid 35.0 ug/mL U Tricyclic Antidepress (NotDetected) Ur Phencyclidine Scrn (NotDetected) Ur Amphetamines Screen (NotDetected) U Methamphetamines Scrn (NotDetected) U Benzodiazepines Scrn (NotDetected) Urine Cocaine Screen (NotDetected) U Marijuana (THC) Screen (NotDetected) Serum Alcohol mg/dL Disposition Time of Disposition: 10:31 Decision Date: 01/29/17 Decision Time: 10:31 <Maranda Etienne - Last Filed: 01/29/17 10:30> <Bryant Patrick - Last Filed: 01/31/17 07:20> Clinical Impression: Acute psychosis, COPD (chronic obstructive pulmonary disease), Hyponatremia Disposition: ADMITTED IP TO THIS [facility] Condition: Stable
[2017-01-29 08:41] LABS: CH 32.8; CHCM 34.7; HCT 37.6 % (39.0-53.0); HGB 12.5 gm/dL (13.0-17.5); Immature Gran Flag Slight; MCH 31.8 pg (25.0-35.0); MCHC 33.4 g/dL (31.0-37.0); MCV 95.2 fL (80.0-100.0); Mean Platelet Volume 7.3; RBC 3.95 m/uL (4.30-5.90); RDW 14.9 % (11.5-15.5); WBC 10.4 k/uL (3.8-10.6); WBC (Perox) 9.93
[2017-01-29 08:46] LABS: INR 1.3 (<1.2); Partial Thromboplastin Time 24.2 sec (22.0-30.0); Prothrombin Time 12.6 sec (9.0-12.0)
[2017-01-29 08:51] LABS: ALT 30 U/L (21-72); AST 43 U/L (17-59); Alcohol <10 mg/dL; Alkaline Phosphatase 80 U/L (38-126); Amylase <30 U/L (30-110); Anion Gap 10 mmol/L; Blood Urea Nitrogen 22 mg/dL (9-20); Calcium 8.4 mg/dL (8.4-10.2); Carbon Dioxide 24 mmol/L (22-30); Chloride 94 mmol/L (98-107); Non-African American GFR(MDRD) >60 (>60 ml/min/1.73 sqM); Potassium 4.1 mmol/L (3.5-5.1); Sodium 128 mmol/L (137-145); Total Protein 6.1 g/dL (6.3-8.2)
[2017-01-29 09:03] LABS: Glucose 42 mg/dL (74-99)
[2017-01-29 09:11] LABS: Appearance,Urine Clear (Clear); Bilirubin,Urine Negative (Negative); Glucose,Urine (UA) Negative (Negative); Ketones,Urine 2+ (Negative); Leukocyte Esterase,Urine Negative (Negative); Nitrite,Urine Negative (Negative); Protein,Urine Trace (Negative); Specific Gravity,Urine 1.019 (1.001-1.035); UA Billing (MACRO vs. MICRO) CHEM; Urobilinogen,Urine <2.0 mg/dL (<2.0)
--- NOTE | 2017-01-29 09:12 | XR ---
EXAMINATION TYPE: XR chest 2V DATE OF EXAM: 01/29/2017 COMPARISON: 09/25/2016 TECHNIQUE: PA and lateral views submitted. HISTORY: Cough FINDINGS: Persistent elevation left hemidiaphragm. There is subsegmental infiltrate at the left lung base. Left -sided PICC line noted. Chronic arthropathy involving both shoulders with previous rotator cuff surgery in the right. Probabl e previous trauma involving the left clavicle. No overt failure correlate for mild hyperinflation and COPD. IMPRESSION: 1. Left basilar atelectasis or early infiltrate.
[2017-01-29 09:16] LABS: Add Differential Manual Differential
[2017-01-29 09:18] LABS: Nucleated Red Blood Cells 0 /100 WBC (0-0); RBC Morphology Normal; Total Cells Counted 100
[2017-01-29 09:20] LABS: Troponin I 0.029 ng/mL (0.000-0.034)
[2017-01-29 09:21] LABS: Creatine Kinase MB 13.7 ng/mL (0.0-2.4)
[2017-01-29] MEDS ORDERED: IPRATROPIUM-ALBUTEROL 3 ML NEB INHALATION STA (09:22)
[2017-01-29 09:54] LABS: Glucose,Whole Blood 90 mg/dL (75-99)
[2017-01-29] MEDS ORDERED: NALOXONE 0.4 MG/ML 1 ML VIAL IV PRN (10:31)
[2017-01-29 11:00] LABS: Glucose,Whole Blood 78 mg/dL (75-99)
[2017-01-29] MEDS: IPRATROPIUM-ALBUTEROL 3 ML NEB INHALATION SCH ×4 (14:12→23:25)
[2017-01-29] MEDS ORDERED: IV VANCOMYCIN PER PHARMACY 1 EACH MISC MISCELLANE PRN (15:26)
[2017-01-29] MEDS ORDERED: LORazepam 2 MG/ML SYRINGE IM STA (15:34)
[2017-01-29] MEDS: PIPERACILLIN-TAZOBACTAM 3.375 GM in DEXTROSE/WATER 1 50ML.BAG IVPB SCH (15:41)
[2017-01-29] MEDS: SODIUM CHLORIDE 0.9% 1,000 ML IV SCH ×2 (15:45→23:23)
[2017-01-29] MEDS ORDERED: VANCOMYCIN 1,500 MG in SODIUM CHLORIDE 0.9% 250 ML IVPB ONE (16:00)
[2017-01-29 16:59] VITALS: BMI 23.6
--- NOTE | 2017-01-29 18:30 | P.HPIM ---
History of Present Illness H&P Date: 01/29/17 Chief Complaint: Severe dyspnea and shortness of breath, MRSA pneumonitis, COPD exacerbation 62-year-old male was in [facility] for few days diagnosed with MRSA pneumonitis has been on Zyvox and Zosyn IV ended up going to [facility] on the [place] rehab on IV antibiotic, Patient developed to have acute psychosis and worsening symptom in the last few days ended up coming to the emergency department at [facility] where was seen and evaluated was diagnosed with acute psychosis still having significant harsh cough with productive phlegm copious amount and worsening dyspnea and shortness of breath with mild hypoxia also found to have mild to moderate hyponatremia has been a contributing factor to his confusion. Patient was seen psych will be admitted to medicine and continue IV antibiotics continued see pulmonary and infectious disease would be seen psych in the inpatient service when he is ready to be transfer hopefully patient might be able to be transferred to psych if medication adjustment is not enough. Review of Systems Constitutional: Reports anorexia, Reports chronic headaches, Reports fatigue, Reports fever, Reports malaise, Reports weakness, Reports weight loss, Denies as per HPI, Denies chills, Denies chronic pain, Denies daytime sleepiness, Denies lethargy, Denies night sweats, Denies poor appetite, Denies sweats, Denies weight gain Eyes: bilateral as per HPI Ears, nose, mouth and throat: Reports ant. neck pain, Reports nasal discharge, Reports sinus pain, Reports sinus pressure, Denies as per HPI, Denies bleeding gums, Denies dental pain, Denies dysphagia, Denies epistaxis, Denies headache, Denies hoarseness, Denies mouth pain, Denies nasal congestion, Denies neck fullness/pressure, Denies neck lump, Denies nose pain, Denies odynophagia, Denies post-nasal drip, Denies swelling in mouth, Denies swelling in throat, Denies sore throat, Denies vertigo, Denies voice changes Cardiovascular: Reports chest pain, Reports decreased exercise tolerance, Reports dyspnea on exertion, Reports edema, Reports high blood pressure, Reports leg edema, Reports lightheadedness, Reports orthopnea, Reports paroxysmal nocturnal dyspnea, Reports shortness of breath, Denies as per HPI, Denies claudication, Denies irregular heart beat, Denies palpitations, Denies phlebitis, Denies rapid heart beat, Denies syncope Respiratory: Reports congestion, Reports cough, Reports dyspnea, Denies as per HPI, Denies cough with sputum, Denies excessive sputum, Denies hemoptysis, Denies home oxygen, Denies pain, Denies pain on inspiration, Denies pleurisy, Denies respiratory infections, Denies sleep apnea, Denies snoring, Denies wheezing Gastrointestinal: Reports abdominal pain, Reports bloating, Reports dyspepsia, Reports indigestion, Reports nausea, Denies as per HPI, Denies belching, Denies BRBPR, Denies change in bowel habits, Denies coffee ground emesis, Denies constipation, Denies diarrhea, Denies early satiety, Denies excessive gas, Denies heartburn, Denies hematemesis, Denies hematochezia, Denies jaundice, Denies lactose intolerance, Denies loss of appetite, Denies melena, Denies vomiting Genitourinary: Reports urinary frequency, Denies as per HPI, Denies decreased libido, Denies difficulties fathering child, Denies discharge, Denies dysuria, Denies erectile dysfunction, Denies flank pain, Denies genital pain, Denies genital sores, Denies hematuria, Denies impotence, Denies incontinence, Denies kidney stones, Denies nocturia, Denies polyuria, Denies testicular lump, Denies testicular pain, Denies urinary hesitancy, Denies urinary retention Musculoskeletal: Reports low back pain, Reports myalgias, Reports neck pain, Denies as per HPI, Denies arm numbness/tingling, Denies atrophy, Denies fractures, Denies frequent falls, Denies gait dysfunction, Denies hot joints, Denies leg numbness/tingling, Denies limitation of motion, Denies loss of height , Denies morning stiffness, Denies muscle cramps, Denies muscle weakness, Denies neck stiffness, Denies prior amputations, Denies redness of joints, Denies shooting arm pain, Denies shooting leg pain Integumentary: Reports pruritus, Reports rash, Denies as per HPI, Denies acne, Denies boils, Denies brittle nails, Denies change in hair/nails, Denies color changes, Denies darkening of skin, Denies depigmentation, Denies dryness, Denies foot/leg ulcers, Denies growths, Denies hirsutism, Denies lesions, Denies onychomycosis, Denies sores, Denies striae, Denies unusual bruising, Denies wounds Neurological: Reports ataxia, Reports gait dysfunction, Reports headaches, Reports paresthesias, Reports tingling, Reports weakness, Denies as per HPI, Denies aphasia, Denies balance difficulties, Denies burning pain, Denies change in mentation, Denies change in smell/taste, Denies change in speech, Denies confusion, Denies convulsions, Denies double vision, Denies head injury, Denies hearing difficulties, Denies lack of coordination, Denies loss of vision, Denies memory loss, Denies migraines, Denies motor disturbance, Denies numbness , Denies paralysis, Denies seizures, Denies sensory deficit, Denies spasticity, Denies syncope, Denies tic, Denies transient paralysis, Denies tremors, Denies vertigo, Denies visual changes Psychiatric: Reports anhedonia, Reports anxiety, Reports anxiety attacks, Reports depression, Reports difficulty concentrating, Reports sadness/ tearfulness, Denies as per HPI, Denies change in appetite, Denies change in libido, Denies change in sleep habits, Denies confusion, Denies disorientation, Denies hallucinations, Denies hopelessness, Denies hypersomnia, Denies insomnia , Denies irritability, Denies memory loss, Denies mood swings, Denies paranoia, Denies sleep disturbances, Denies suicidal ideation Endocrine: Reports cold intolerance, Reports excessive thirst, Reports fatigue, Reports nocturia, Reports polydipsia, Reports polyuria, Denies as per HPI, Denies deepening of the voice, Denies excessive sweating, Denies flushing, Denies heat intolerance, Denies high blood sugars, Denies increase in ring/shoe/ hat size, Denies low blood sugars, Denies palpitations, Denies polyphagia, Denies proptosis, Denies recent glucocorticoid use, Denies thyroid mass, Denies weight change Hematologic/Lymphatic: Reports easy bruising, Denies as per HPI, Denies easy bleeding, Denies lymphadenopathy, Denies lymphedema, Denies thrombophilia Allergic/Immunologic: Reports allergic rhinitis, Denies as per HPI, Denies anaphylaxis, Denies angioedema, Denies gluten intolerance, Denies persistent infections, Denies seasonal allergies, Denies urticaria, Denies wheezing Past Medical History Past Medical History: Asthma, GERD/Reflux, Hearing Disorder / Deafness, Osteoarthritis (OA) Additional Past Medical History / Comment(s): GOUT History of Any Multi-Drug Resistant Organisms: None Reported Date of last positivie culture/infection: 09/22/2016 MDRO Source:: sputum Past Surgical History: Ear Surgery, Hernia Repair Additional Past Surgical History / Comment(s): ARTHRSCOPIC RIGHT AND LEFT SHOULDER, RIGHT FOOT Past Anesthesia/Blood Transfusion Reactions: Motion Sickness, Postoperative Nausea & Vomiting (PONV) Past Psychological History: Depression Smoking Status: Never smoker Past Alcohol Use History: None Reported Past Drug Use History: Marijuana - Past Family History Brother(s) Family Medical History: Hypertension Sister(s) Family Medical History: No Reported History Son(s) Family Medical History: No Reported History Father Family Medical History: Cancer, Hypertension Additional Family Medical History / Comment(s): FROM STOMACH CANCER Mother Family Medical History: COPD Medications and Allergies Home Medications Medication Instructions Recorded Confirmed Type Montelukast [Singulair] 10 mg PO HS 11/06/14 01/29/17 History Ipratropium-Albuterol Nebulize 3 ml INHALATION RT-Q4H 09/24/16 01/29/17 History [Duoneb 0.5 mg-3 mg/3 ml Soln] Magnesium Oxide [Mag-Ox] 400 mg PO DAILY 09/24/16 01/29/17 History Budesonide [Pulmicort] 1 mg INHALATION RT-BID 01/29/17 01/29/17 History Cyanocobalamin [Vitamin B-12] 500 mcg PO DAILY 01/29/17 01/29/17 History Divalproex ER [Depakote ER] 500 mg PO DAILY 01/29/17 01/29/17 History QUEtiapine [SEROquel] 200 mg PO BID 01/29/17 01/29/17 History Allergies Allergy/AdvReac Type Severity Reaction Status Date / Time aspirin Allergy Severe Anaphylaxis Verified 01/29/17 10:16 Salicylates Allergy Severe Anaphylaxis Verified 01/29/17 10:16 iodine Allergy Dyspnea Verified 01/29/17 10:16 iohexol [From Omnipaque 140] Allergy Dyspnea Verified 01/29/17 10:16 prednisone Allergy Confusion, Verified 01/29/17 10:16 SEMI COMATOSE nut Allergy Anaphylaxis Uncoded 01/29/17 07:52 Physical Exam Vitals: Vital Signs Temp Pulse Resp BP Pulse Ox 01/29/17 09:52 92 20 119/72 92 L 01/29/17 09:50 102 H 01/29/17 09:35 101 H 01/29/17 08:51 20 01/29/17 07:53 97.9 F 86 20 125/72 91 L Intake and Output 01/28/17 01/29/17 01/29/17 22:59 06:59 14:59 Other: Weight 74.843 kg Patient Weight 01/30/17 06:59 Weight 74.843 kg - Constitutional General appearance: no average body habitus, cooperative, disheveled, mild distress, no morbidly obese, no no acute distress, no obese, no severe distress , no thin - EENT Eyes: no abnormal pupil, no anicteric sclerae, no disc margins sharp, no edentulous, no EOMI, no PERRLA, no fundus normal, no photophobia, no dentition normal, no poor dentition, no ptosis, no scleral icterus, normal appearance ENT: hard of hearing, no hearing grossly normal, no NA/AT, normal oropharynx, no other, no pharyngeal erythema, no thrush, no tonsillar exudates, no tonsillar swelling Ears: bilateral: normal - Neck Neck: normal ROM Carotids: bilateral: upstroke normal Thyroid: bilateral: normal size - Respiratory Respiratory: bilateral: diminished, dullness, rales, rhonchi, wheezing, prolonged expiration, prolonged inspiration - Cardiovascular Rhythm: regular Heart sounds: normal: S1, S2 Abnormal Heart Sounds: systolic murmur, S3 Gallop - Gastrointestinal General gastrointestinal: no absent bowel sounds, decreased bowel sounds, distended, no hepatomegaly, no hyperactive bowel sounds, no normal bowel sounds , no organomegaly, no rigid, no scaphoid, soft, no splenomegaly, no tenderness, no umbilical hernia, no ventral hernia - Integumentary Integumentary: no calor, no cellulitis, no cyanotic, no decreased turgor, no flushed, no jaundiced, normal, no normal turgor, pale, rash, no ulcer - Neurologic Neurologic: CNII-XII intact - Musculoskeletal Musculoskeletal: gait normal, generalized weakness, strength equal bilaterally - Psychiatric Psychiatric: A&O x's 3, appropriate affect Results CBC & Chem 7: 01/29/17 08:30 01/29/17 08:30 Labs: Abnormal Lab Results - Last 24 Hours (Table) 01/29/17 01/29/17 01/29/17 Range/Units 08:30 08:30 08:30 RBC 3.95 L (4.30-5.90) m/uL Hgb 12.5 L (13.0-17.5) gm/dL Hct 37.6 L (39.0-53.0) % Plt Count 129 L (150-450) k/uL Monocytes # (Manual) 1.14 H (0-1.0) k/uL Eosinophils # (Manual) 1.14 H (0-0.7) k/uL PT 12.6 H (9.0-12.0) sec INR 1.3 H (<1.2) Sodium 128 L (137-145) mmol/L Chloride 94 L (98-107) mmol/L BUN 22 H (9-20) mg/dL Glucose 42 L* (74-99) mg/dL Total Creatine Kinase (55-170) U/L CK-MB (CK-2) (0.0-2.4) ng/mL Total Protein 6.1 L (6.3-8.2) g/dL Albumin 3.4 L (3.5-5.0) g/dL Amylase <30 L (30-110) U/L Lipase <10 L (23-300) U/L Urine Protein (Negative) Urine Ketones (Negative) U Tricyclic Antidepress (NotDetected) 01/29/17 01/29/17 Range/Units 08:30 08:30 RBC (4.30-5.90) m/uL Hgb (13.0-17.5) gm/dL Hct (39.0-53.0) % Plt Count (150-450) k/uL Monocytes # (Manual) (0-1.0) k/uL Eosinophils # (Manual) (0-0.7) k/uL PT (9.0-12.0) sec INR (<1.2) Sodium (137-145) mmol/L Chloride (98-107) mmol/L BUN (9-20) mg/dL Glucose (74-99) mg/dL Total Creatine Kinase 260 H (55-170) U/L CK-MB (CK-2) 13.7 H* (0.0-2.4) ng/mL Total Protein (6.3-8.2) g/dL Albumin (3.5-5.0) g/dL Amylase (30-110) U/L Lipase (23-300) U/L Urine Protein Trace H (Negative) Urine Ketones 2+ H (Negative) U Tricyclic Antidepress Detected H (NotDetected) Thrombosis Risk Factor Assmnt - DVT/VTE Prophylaxis DVT/VTE Prophylaxis: Pharmacologic Prophylaxis ordered, Mechanical Prophylaxis ordered Assessment and Plan Plan: 1 severe acute psychosis: Combination of history of bipolar and psych history has been seen psych for long time has been on Seroquel and Depakote which possibly medication are not working with his current symptoms also patient has been on steroids since his hospitalization might be a big factor of his psychosis add to it the hyponatremia the whole picture become worsening acute psychosis related to medical problem. Try to treat underlying disease and problem and will be seen psych for more adjustment medication. 2 severe dyspnea and shortness of breath with chronic respiratory failure secondary to COPD and recurrent MRSA pneumonitis continue to treat problem. 3 COPD exacerbation continue patient underwent up Pulmicort still on tapering dose of steroid seen pulmonary patient has been on Singulair as well. 4 MRSA pneumonitis has been on Zyvox and Zosyn continue medication and patient be seen ID as well. 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 6 Severe depression and bipolar disorders: Continue Seroquel and Depakote CAD continue to see psych regular basis, was on Cogentin as well. 7 hyperlipidemia: Remain on atorvastatin 10 mg daily. 8 gout: Has been on Zyloprim 100 mg daily she seen recently. 9 history of TIA: Patient still on Plavix resume medication. 10 DVT prophylaxis: Patient will be on heparin subcutaneous. 11 GI prophylaxis: Patient will be on pantoprazole IV. CODE STATUS: Full code. Expectation from's admission: Patient be in the hospital for more than 2 nights.
[2017-01-29] MEDS: BUDESONIDE 1 MG/2 ML NEBU INHALATION SCH (20:05)
[2017-01-29] MEDS: MONTELUKAST 10 MG TAB PO SCH (20:40)
[2017-01-29] MEDS: QUEtiapine 200 MG TAB PO SCH (20:40)
[2017-01-29] MEDS: ATORVASTATIN 10 MG TAB PO SCH (20:40)
[2017-01-29 20:48] LABS: Glucose,Whole Blood 73 mg/dL (75-99)
[2017-01-29] MEDS: VANCOMYCIN 1,250 MG in SODIUM CHLORIDE 0.9% 250 ML IVPB SCH (23:21)
[2017-01-30] MEDS: PIPERACILLIN-TAZOBACTAM 3.375 GM in DEXTROSE/WATER 1 50ML.BAG IVPB SCH ×3 (01:46→17:07)
[2017-01-30] MEDS: IPRATROPIUM-ALBUTEROL 3 ML NEB INHALATION SCH ×5 (03:16→19:08)
[2017-01-30 05:37] LABS: Glucose,Whole Blood 98 mg/dL (75-99)
[2017-01-30 07:31] LABS: ALT 22 U/L (21-72); AST 31 U/L (17-59); Alkaline Phosphatase 55 U/L (38-126); Anion Gap 2 mmol/L; Blood Urea Nitrogen 6 mg/dL (9-20); Calcium 6.9 mg/dL (8.4-10.2); Carbon Dioxide 28 mmol/L (22-30); Chloride 105 mmol/L (98-107); Glucose 71 mg/dL (74-99); Non-African American GFR(MDRD) >60 (>60 ml/min/1.73 sqM); Potassium 3.5 mmol/L (3.5-5.1); Sodium 135 mmol/L (137-145); Total Bilirubin 0.4 mg/dL (0.2-1.3); Total Protein 4.4 g/dL (6.3-8.2)
[2017-01-30] MEDS: BUDESONIDE 1 MG/2 ML NEBU INHALATION SCH ×2 (07:38→19:06)
[2017-01-30 07:44] LABS: Basophils % (A) 0 %; CH 32.9; CHCM 34.1; Eosinophils # (A) 0.8 k/uL (0-0.7); Eosinophils % (A) 14 %; HCT 36.3 % (39.0-53.0); HDW 2.11; HGB 12.1 gm/dL (13.0-17.5); Luc # (Auto) 0.13; Luc % (Auto) 2; Lymphocytes # (A) 1.8 k/uL (1.0-4.8); Lymphocytes % (A) 30 %; MCH 32.3 pg (25.0-35.0); MCHC 33.3 g/dL (31.0-37.0); MCV 96.8 fL (80.0-100.0); Mean Platelet Volume 7.7; Monocytes # (A) 0.6 k/uL (0-1.0); Monocytes % (A) 10 %; Neutrophils # (A) 2.6 k/uL (1.3-7.7); Neutrophils % (A) 43 %; RBC 3.75 m/uL (4.30-5.90); RDW 14.8 % (11.5-15.5)
[2017-01-30 07:58] LABS: Glucose,Whole Blood 92 mg/dL (75-99)
[2017-01-30] MEDS: VANCOMYCIN 1,250 MG in SODIUM CHLORIDE 0.9% 250 ML IVPB SCH (08:28)
[2017-01-30] MEDS: ALLOPURINOL 100 MG TAB PO SCH (08:38)
[2017-01-30] MEDS: BENZTROPINE MESYLATE 1 MG TAB PO SCH (08:39)
[2017-01-30] MEDS: CLOPIDOGREL 75 MG TAB PO SCH (08:41)
[2017-01-30] MEDS: DIVALPROEX ER 500 MG TAB.ER.24H PO SCH (08:51)
[2017-01-30] MEDS: CYANOCOBALAMIN 500 MCG TAB PO SCH (08:52)
[2017-01-30] MEDS: MAGNESIUM OXIDE 400 MG TAB PO SCH (08:52)
[2017-01-30] MEDS: QUEtiapine 200 MG TAB PO SCH (08:55)
[2017-01-30] MEDS: SODIUM CHLORIDE 0.9% 1,000 ML IV SCH (08:58)
[2017-01-30 12:12] LABS: Glucose,Whole Blood 95 mg/dL (75-99)
--- NOTE | 2017-01-30 13:55 | P.PN ---
Subjective 62-year-old male was in [facility] for few days diagnosed with MRSA pneumonitis has been on Zyvox and Zosyn IV ended up going to [facility] on the [place] rehab on IV antibiotic, Patient developed to have acute psychosis and worsening symptom in the last few days ended up coming to the emergency department at [facility] where was seen and evaluated was diagnosed with acute psychosis still having significant harsh cough with productive phlegm copious amount and worsening dyspnea and shortness of breath with mild hypoxia also found to have mild to moderate hyponatremia has been a contributing factor to his confusion. Patient was seen psych will be admitted to medicine and continue IV antibiotics continued see pulmonary and infectious disease would be seen psych in the inpatient service when he is ready to be transfer hopefully patient might be able to be transferred to psych if medication adjustment is not enough. 01/30: She is very calm today. Son is at the bedside and updated in detail. Urine culture has been finalized with contamination and blood culture showing no growth after 24 hours. Sodium has improved to 135. IV fluids will be decreased to 50 mL per hour. Psychiatry and pulmonary medicine following the patient. Objective - Vital Signs Vital signs: Vital Signs Temp 96.8 F L 01/30/17 07:33 Pulse 80 01/30/17 07:55 Resp 19 01/30/17 07:33 BP 133/74 01/30/17 07:33 Pulse Ox 96 01/29/17 22:52 Intake & Output 01/29/17 01/30/17 01/30/17 18:59 06:59 18:59 Intake Total 707.5 Balance 707.5 Weight 74.843 kg 74.843 kg Intake: Intake, IV Titration 187.5 Amount Sodium Chloride 0.9% 1, 187.5 000 ml @ 75 mls/hr IV . [id number] CHRISTOPHE Rx#:[id number] Oral 520 Other: # Voids 3 - Exam General appearance: no average body habitus, cooperative, disheveled, mild distress, no morbidly obese, no no acute distress, no obese, no severe distress , no thin - EENT Eyes: no abnormal pupil, no anicteric sclerae, no disc margins sharp, no edentulous, no EOMI, no PERRLA, no fundus normal, no photophobia, no dentition normal, no poor dentition, no ptosis, no scleral icterus, normal appearance ENT: hard of hearing, no hearing grossly normal, no NA/AT, normal oropharynx, no other, no pharyngeal erythema, no thrush, no tonsillar exudates, no tonsillar swelling Ears: bilateral: normal - Neck Neck: normal ROM Carotids: bilateral: upstroke normal Thyroid: bilateral: normal size - Respiratory Respiratory: bilateral: diminished, dullness, rales, rhonchi, wheezing, prolonged expiration, prolonged inspiration - Cardiovascular Rhythm: regular Heart sounds: normal: S1, S2 Abnormal Heart Sounds: systolic murmur, S3 Gallop - Gastrointestinal General gastrointestinal: no absent bowel sounds, decreased bowel sounds, distended, no hepatomegaly, no hyperactive bowel sounds, no normal bowel sounds , no organomegaly, no rigid, no scaphoid, soft, no splenomegaly, no tenderness, no umbilical hernia, no ventral hernia - Integumentary Integumentary: no calor, no cellulitis, no cyanotic, no decreased turgor, no flushed, no jaundiced, normal, no normal turgor, pale, rash, no ulcer - Neurologic Neurologic: CNII-XII intact - Musculoskeletal Musculoskeletal: gait normal, generalized weakness, strength equal bilaterally - Psychiatric Psychiatric: A&O x's 3, appropriate affect - Labs CBC & Chem 7: 01/30/17 07:24 01/30/17 06:30 Labs: Abnormal Lab Results - Last 24 Hours (Table) 01/29/17 01/29/17 01/29/17 Range/Units 08:30 08:30 08:30 RBC (4.30-5.90) m/uL Hgb (13.0-17.5) gm/dL Hct (39.0-53.0) % Plt Count (150-450) k/uL Monocytes # (Manual) 1.14 H (0-1.0) k/uL Eosinophils # (0-0.7) k/uL Eosinophils # (Manual) 1.14 H (0-0.7) k/uL Sodium 128 L (137-145) mmol/L Chloride 94 L (98-107) mmol/L BUN 22 H (9-20) mg/dL Creatinine (0.66-1.25) mg/dL Glucose 42 L* (74-99) mg/dL POC Glucose (mg/dL) (75-99) mg/dL Calcium (8.4-10.2) mg/dL Total Creatine Kinase 260 H (55-170) U/L CK-MB (CK-2) 13.7 H* (0.0-2.4) ng/mL Total Protein 6.1 L (6.3-8.2) g/dL Albumin 3.4 L (3.5-5.0) g/dL Amylase <30 L (30-110) U/L Lipase <10 L (23-300) U/L Urine Protein (Negative) Urine Ketones (Negative) U Tricyclic Antidepress (NotDetected) 01/29/17 01/29/17 01/30/17 Range/Units 08:30 20:29 06:30 RBC (4.30-5.90) m/uL Hgb (13.0-17.5) gm/dL Hct (39.0-53.0) % Plt Count (150-450) k/uL Monocytes # (Manual) (0-1.0) k/uL Eosinophils # (0-0.7) k/uL Eosinophils # (Manual) (0-0.7) k/uL Sodium 135 L (137-145) mmol/L Chloride (98-107) mmol/L BUN 6 L (9-20) mg/dL Creatinine 0.54 L (0.66-1.25) mg/dL Glucose 71 L (74-99) mg/dL POC Glucose (mg/dL) 73 L (75-99) mg/dL Calcium 6.9 L (8.4-10.2) mg/dL Total Creatine Kinase (55-170) U/L CK-MB (CK-2) (0.0-2.4) ng/mL Total Protein 4.4 L (6.3-8.2) g/dL Albumin 2.2 L (3.5-5.0) g/dL Amylase (30-110) U/L Lipase (23-300) U/L Urine Protein Trace H (Negative) Urine Ketones 2+ H (Negative) U Tricyclic Antidepress Detected H (NotDetected) 01/30/17 Range/Units 07:24 RBC 3.75 L (4.30-5.90) m/uL Hgb 12.1 L (13.0-17.5) gm/dL Hct 36.3 L (39.0-53.0) % Plt Count 128 L (150-450) k/uL Monocytes # (Manual) (0-1.0) k/uL Eosinophils # 0.8 H (0-0.7) k/uL Eosinophils # (Manual) (0-0.7) k/uL Sodium (137-145) mmol/L Chloride (98-107) mmol/L BUN (9-20) mg/dL Creatinine (0.66-1.25) mg/dL Glucose (74-99) mg/dL POC Glucose (mg/dL) (75-99) mg/dL Calcium (8.4-10.2) mg/dL Total Creatine Kinase (55-170) U/L CK-MB (CK-2) (0.0-2.4) ng/mL Total Protein (6.3-8.2) g/dL Albumin (3.5-5.0) g/dL Amylase (30-110) U/L Lipase (23-300) U/L Urine Protein (Negative) Urine Ketones (Negative) U Tricyclic Antidepress (NotDetected) Microbiology - Last 24 Hours (Table) 01/29/17 08:30 Urine Culture - Preliminary Urine,Voided Assessment and Plan Plan: 1 severe acute psychosis: Combination of history of bipolar and psych history has been seeing psych for long time has been on Seroquel and Depakote which possibly medication are not working with his current symptoms also patient has been on steroids since his hospitalization might be a big factor of his psychosis add to it the hyponatremia the whole picture become worsening acute psychosis related to medical problem. Try to treat underlying disease and problem and will be seen psych for more adjustment medication. Psychiatric consult. 2 severe dyspnea and shortness of breath with chronic hypoxic respiratory failure secondary to COPD and recurrent MRSA pneumonitis continue to treat problem. 3 COPD exacerbation continue nebulizer treatments, Pulmicort still on tapering dose of steroid seen pulmonary patient has been on Singulair as well. 4 MRSA pneumonitis has been on Zyvox and Zosyn area and patient is currently on vancomycin, Zosyn continue medication and patient be seen ID as well. 5 severe hyponatremia: Secondary to SIADH and current infection along with medication side effect continue to watch symptom continue mild hydration for now. 6 Severe recurrent depression and bipolar disorders: Continue Seroquel and Depakote CAD continue to see psych regular basis, was on Cogentin as well. Psychiatric consult. 7 hyperlipidemia: Remain on atorvastatin 10 mg daily. 8 gout, unspecified: Has been on Zyloprim 100 mg daily she seen recently. 9 history of TIA: Patient still on Plavix resume medication. 10 DVT prophylaxis: Patient will be on heparin subcutaneous. 11 GI prophylaxis: Patient will be on pantoprazole IV. CODE STATUS: Full code. Discharge plan: Return to [facility] Impression and plan of care have been directed as dictated by the signing physician. Lela Valdovinos nurse practitioner acting as scribe for signing physician.
--- NOTE | 2017-01-30 14:16 | P.PN ---
Subjective Patient seen and evaluated examined during the rounds he is a left remote, less agitated he is being monitored closely for electrolyte imbalance hypoglycemia and left-sided pneumonia Objective - Vital Signs Vital signs: Vital Signs Temp 96.8 F L 01/30/17 07:33 Pulse 84 01/30/17 11:49 Resp 19 01/30/17 07:33 BP 133/74 01/30/17 07:33 Pulse Ox 96 01/29/17 22:52 Intake & Output 01/29/17 01/30/17 01/30/17 18:59 06:59 18:59 Intake Total 707.5 Balance 707.5 Weight 74.843 kg 74.843 kg Intake: Intake, IV Titration 187.5 Amount Sodium Chloride 0.9% 1, 187.5 000 ml @ 75 mls/hr IV . [id number] CHRISTOPHE Rx#:[id number] Oral 520 Other: Voiding Method Urinal # Voids 3 1 - Exam Constitutional General appearance: cooperative, disheveled, mild distress - EENT Eyes: EOMI, PERRLA, poor dentition, normal appearance ENT: normal oropharynx Ears: bilateral: normal - Neck Neck: normal ROM Carotids: bilateral: upstroke normal, bruit absent Thyroid: bilateral: normal size, negative: enlarged, firm, nodule - Respiratory Respiratory: left: rales, bilateral: wheezing, prolonged expiration - Cardiovascular Rhythm: regular Heart sounds: normal: S1, S2 - Gastrointestinal General gastrointestinal: normal bowel sounds - Neurologic Neurologic: CNII-XII intact - Musculoskeletal Musculoskeletal: gait normal, generalized weakness, strength equal bilaterally - Psychiatric Psychiatric: A&O x's 3, appropriate affect - Labs CBC & Chem 7: 01/30/17 07:24 01/30/17 06:30 Labs: Abnormal Lab Results - Last 24 Hours (Table) 01/29/17 01/30/17 01/30/17 Range/Units 20:29 06:30 07:24 RBC 3.75 L (4.30-5.90) m/uL Hgb 12.1 L (13.0-17.5) gm/dL Hct 36.3 L (39.0-53.0) % Plt Count 128 L (150-450) k/uL Eosinophils # 0.8 H (0-0.7) k/uL Sodium 135 L (137-145) mmol/L BUN 6 L (9-20) mg/dL Creatinine 0.54 L (0.66-1.25) mg/dL Glucose 71 L (74-99) mg/dL POC Glucose (mg/dL) 73 L (75-99) mg/dL Calcium 6.9 L (8.4-10.2) mg/dL Total Protein 4.4 L (6.3-8.2) g/dL Albumin 2.2 L (3.5-5.0) g/dL Microbiology - Last 24 Hours (Table) 01/29/17 08:30 Urine Culture - Final Urine,Voided 01/29/17 08:30 Blood Culture - Preliminary Blood No Growth after 24 hours Assessment and Plan Plan: Left lower lobe pneumonia History of pseudomonas and MRSA pneumonia, likely playing a major role in her current respiratory status Electrolyte imbalance with hyponatremia thrombocytopenia and hypoglycemia Agitated behavior is anxiety and apprehension Severe COPD emphysema Plan is to continue antibiotics monitor electrolytes closely gentle rehydration anxiolytics as tolerated Time with Patient: Greater than 30
--- NOTE | 2017-01-30 14:18 | P.CNPUL ---
History of Present Illness Reason for consult: dyspnea, cough, COPD, pneumonia Chief complaint: Left-sided pneumonia and recently found to have a pseudomonas pneumonia and History of present illness: Mr. Medellin feel is a 62-year-old male was seen and evaluated examined and I see in the emergency department, patient off not that presented over here for agitated behavior and confusion which has been progressive in the last few days patient is a resident of [facility] recently discharged from [facility] has been on IV antibiotics getting it through PICC line on the left upper extremity in addition to that has more cough and sputum production with those problem patient was brought into emergency department where he was seen and evaluated examined now being admitted into the hospital,. Of note that at [facility] at the time of discharge patient was very stable was ambulating in the hallway without any chest pain tightness mild degree of shortness of breath was present which was actually baseline is sputum production was also improved at that time Review of Systems All systems: negative Constitutional: Reports as per HPI Eyes: bilateral as per HPI, denies blurred vision, denies bulging eye, denies decreased vision, denies diplopia, denies discharge, denies dry eye, denies irritation, denies itching, denies pain, denies photophobia, denies loss of peripheral vision, denies loss of vision, denies tunnel vision/blind spots Ears: deny: decreased hearing, ear discharge, earache, tinnitus Ears, nose, mouth and throat: Reports as per HPI Cardiovascular: Reports as per HPI Respiratory: Reports as per HPI, Reports congestion, Reports cough, Reports cough with sputum, Reports dyspnea, Reports excessive sputum, Reports respiratory infections Gastrointestinal: Reports as per HPI Genitourinary: Reports as per HPI Musculoskeletal: Reports as per HPI Musculoskeletal: absent: ankle pain, ankle stiffness, ankle swelling, as per HPI Integumentary: Reports as per HPI Neurological: Reports as per HPI Psychiatric: Reports anxiety, Reports anxiety attacks, Reports change in appetite, Reports change in sleep habits, Reports confusion, Reports difficulty concentrating, Reports irritability, Reports mood swings Endocrine: Reports as per HPI Hematologic/Lymphatic: Reports as per HPI Allergic/Immunologic: Reports as per HPI Past Medical History Past Medical History: Asthma, GERD/Reflux, Hearing Disorder / Deafness, Osteoarthritis (OA) Additional Past Medical History / Comment(s): GOUT History of Any Multi-Drug Resistant Organisms: None Reported Date of last positivie culture/infection: 09/22/2016 MDRO Source:: sputum Past Surgical History: Ear Surgery, Hernia Repair Additional Past Surgical History / Comment(s): ARTHRSCOPIC RIGHT AND LEFT SHOULDER, RIGHT FOOT Past Anesthesia/Blood Transfusion Reactions: Motion Sickness, Postoperative Nausea & Vomiting (PONV) Past Psychological History: Depression Smoking Status: Never smoker Past Alcohol Use History: None Reported Past Drug Use History: Marijuana - Past Family History Brother(s) Family Medical History: Hypertension Sister(s) Family Medical History: No Reported History Son(s) Family Medical History: No Reported History Father Family Medical History: Cancer, Hypertension Additional Family Medical History / Comment(s): FROM STOMACH CANCER Mother Family Medical History: COPD Medications and Allergies Home Medications Medication Instructions Recorded Confirmed Type Montelukast [Singulair] 10 mg PO HS 11/06/14 01/29/17 History Ipratropium-Albuterol Nebulize 3 ml INHALATION RT-Q4H 09/24/16 01/29/17 History [Duoneb 0.5 mg-3 mg/3 ml Soln] Magnesium Oxide [Mag-Ox] 400 mg PO DAILY 09/24/16 01/29/17 History Budesonide [Pulmicort] 1 mg INHALATION RT-BID 01/29/17 01/29/17 History Cyanocobalamin [Vitamin B-12] 500 mcg PO DAILY 01/29/17 01/29/17 History Divalproex ER [Depakote ER] 500 mg PO DAILY 01/29/17 01/29/17 History QUEtiapine [SEROquel] 200 mg PO BID 01/29/17 01/29/17 History Allergies Allergy/AdvReac Type Severity Reaction Status Date / Time aspirin Allergy Severe Anaphylaxis Verified 01/29/17 10:16 Salicylates Allergy Severe Anaphylaxis Verified 01/29/17 10:16 iodine Allergy Dyspnea Verified 01/29/17 10:16 iohexol [From Omnipaque 140] Allergy Dyspnea Verified 01/29/17 10:16 prednisone Allergy Confusion, Verified 01/29/17 10:16 SEMI COMATOSE nut Allergy Anaphylaxis Uncoded 01/29/17 07:52 Physical Exam Vitals: Vital Signs Temp Pulse Resp BP Pulse Ox 01/29/17 14:21 81 01/29/17 14:12 78 01/29/17 13:30 91 20 117/76 95 01/29/17 12:00 94 16 119/72 96 01/29/17 09:52 92 20 119/72 92 L 01/29/17 09:50 102 H 01/29/17 09:35 101 H 01/29/17 08:51 20 01/29/17 07:53 97.9 F 86 20 125/72 91 L Intake and Output 01/29/17 01/29/17 01/29/17 06:59 14:59 22:59 Other: Weight 74.843 kg Patient Weight 01/30/17 06:59 Weight 74.843 kg - Constitutional General appearance: cooperative, disheveled, mild distress - EENT Eyes: EOMI, PERRLA, poor dentition, normal appearance ENT: normal oropharynx Ears: bilateral: normal - Neck Neck: normal ROM Carotids: bilateral: upstroke normal, bruit absent Thyroid: bilateral: normal size, negative: enlarged, firm, nodule - Respiratory Respiratory: left: rales, bilateral: wheezing, prolonged expiration - Cardiovascular Rhythm: regular Heart sounds: normal: S1, S2 - Gastrointestinal General gastrointestinal: normal bowel sounds - Neurologic Neurologic: CNII-XII intact - Musculoskeletal Musculoskeletal: gait normal, generalized weakness, strength equal bilaterally - Psychiatric Psychiatric: A&O x's 3, appropriate affect Results - Laboratory Findings CBC and BMP: 01/30/17 07:24 01/30/17 06:30 PT/INR, D-dimer PT 12.6 sec (9.0-12.0) H 01/29/17 08:30 INR 1.3 (<1.2) H 01/29/17 08:30 Abnormal lab findings: Abnormal Labs 01/29/17 01/29/17 01/29/17 08:30 08:30 08:30 RBC 3.95 L Hgb 12.5 L Hct 37.6 L Plt Count 129 L Monocytes # (Manual) 1.14 H Eosinophils # (Manual) 1.14 H PT 12.6 H INR 1.3 H Sodium 128 L Chloride 94 L BUN 22 H Glucose 42 L* Total Creatine Kinase CK-MB (CK-2) Total Protein 6.1 L Albumin 3.4 L Amylase <30 L Lipase <10 L Urine Protein Urine Ketones U Tricyclic Antidepress 01/29/17 01/29/17 08:30 08:30 RBC Hgb Hct Plt Count Monocytes # (Manual) Eosinophils # (Manual) PT INR Sodium Chloride BUN Glucose Total Creatine Kinase 260 H CK-MB (CK-2) 13.7 H* Total Protein Albumin Amylase Lipase Urine Protein Trace H Urine Ketones 2+ H U Tricyclic Antidepress Detected H - Diagnostic Findings Chest x-ray: report reviewed, image reviewed (Left lower lobe pneumonia) Assessment and Plan Plan: Left lower lobe pneumonia, likely mixed bacterial pneumonia History of pseudomonas and MRSA pneumonia, likely playing a major role in her current respiratory status Electrolyte imbalance with hyponatremia thrombocytopenia and hypoglycemia Agitated behavior is anxiety and apprehension Severe COPD emphysema Plan is to continue antibiotics monitor electrolytes closely gentle rehydration anxiolytics as tolerated Time with Patient: Greater than 30
[2017-01-30 17:27] LABS: Glucose,Whole Blood 102 mg/dL (75-99)
[2017-01-30] MEDS: OLANZapine 5 MG TAB PO SCH ×2 (17:29→22:18)
[2017-01-30 20:17] LABS: Glucose,Whole Blood 95 mg/dL (75-99)
[2017-01-30] MEDS: ATORVASTATIN 10 MG TAB PO SCH (22:18)
[2017-01-30] MEDS: LINEZOLID 600 MG TAB PO SCH (22:18)
[2017-01-30] MEDS: MONTELUKAST 10 MG TAB PO SCH (22:18)
[2017-01-30] MEDS ORDERED: VANCOMYCIN TROUGH DUE 1 EACH MISC MISCELLANE ONE (23:00)
[2017-01-31] MEDS: PIPERACILLIN-TAZOBACTAM 3.375 GM in DEXTROSE/WATER 1 50ML.BAG IVPB SCH ×4 (00:22→23:11)
[2017-01-31] MEDS: SODIUM CHLORIDE 0.9% 1,000 ML IV SCH ×2 (00:22→08:21)
[2017-01-31] MEDS: IPRATROPIUM-ALBUTEROL 3 ML NEB INHALATION SCH ×7 (01:03→19:45)
[2017-01-31 02:02] LABS: Glucose,Whole Blood 106 mg/dL (75-99)
[2017-01-31 06:18] LABS: Basophils % (A) 0 %; CH 32.8; CHCM 33.9; Eosinophils # (A) 0.8 k/uL (0-0.7); Eosinophils % (A) 12 %; HCT 35.4 % (39.0-53.0); HDW 2.14; HGB 11.8 gm/dL (13.0-17.5); Luc # (Auto) 0.11; Luc % (Auto) 2; Lymphocytes # (A) 2.5 k/uL (1.0-4.8); Lymphocytes % (A) 36 %; MCH 32.3 pg (25.0-35.0); MCHC 33.2 g/dL (31.0-37.0); MCV 97.2 fL (80.0-100.0); Mean Platelet Volume 7.8; Monocytes # (A) 0.6 k/uL (0-1.0); Monocytes % (A) 8 %; Neutrophils % (A) 42 %; RBC 3.64 m/uL (4.30-5.90); RDW 14.8 % (11.5-15.5); WBC 7.1 k/uL (3.8-10.6); WBC (Perox) 7.17
[2017-01-31 06:53] LABS: ALT 21 U/L (21-72); AST 31 U/L (17-59); Alkaline Phosphatase 85 U/L (38-126); Anion Gap 4 mmol/L; Blood Urea Nitrogen 8 mg/dL (9-20); Calcium 8.3 mg/dL (8.4-10.2); Carbon Dioxide 28 mmol/L (22-30); Chloride 98 mmol/L (98-107); Glucose 99 mg/dL (74-99); Non-African American GFR(MDRD) >60 (>60 ml/min/1.73 sqM); Potassium 4.1 mmol/L (3.5-5.1); Sodium 130 mmol/L (137-145); Total Bilirubin 0.4 mg/dL (0.2-1.3); Total Protein 5.4 g/dL (6.3-8.2)
[2017-01-31 07:13] LABS: Glucose,Whole Blood 91 mg/dL (75-99)
[2017-01-31] MEDS: BUDESONIDE 1 MG/2 ML NEBU INHALATION SCH ×2 (08:03→19:45)
[2017-01-31] MEDS: MAGNESIUM OXIDE 400 MG TAB PO SCH (08:21)
[2017-01-31] MEDS: ALLOPURINOL 100 MG TAB PO SCH (08:21)
[2017-01-31] MEDS: OLANZapine 5 MG TAB PO SCH ×3 (08:21→20:51)
[2017-01-31] MEDS: BENZTROPINE MESYLATE 1 MG TAB PO SCH (08:21)
[2017-01-31] MEDS: CYANOCOBALAMIN 500 MCG TAB PO SCH (08:21)
[2017-01-31] MEDS: CLOPIDOGREL 75 MG TAB PO SCH (08:21)
[2017-01-31] MEDS: DIVALPROEX ER 500 MG TAB.ER.24H PO SCH (08:21)
[2017-01-31] MEDS: LINEZOLID 600 MG TAB PO SCH ×2 (08:23→20:51)
--- NOTE | 2017-01-31 09:18 | CONS ---
DATE OF CONSULTATION: 01/30/2017 REASON FOR CONSULTATION: MRSA and pseudomonas pneumonia. HISTORY OF PRESENT ILLNESS: The patient is a 62-year-old male with a past medical history significant for COPD and recent admission to [facility]. The patient was treated for MRSA and pseudomonas pneumonia. The patients second sputum cultures came back positive for MRSA with Vancomycin resistance, hence antibiotic was switched over to Zyvox with recommendation for two weeks of oral Zyvox and Fortaz which apparently the patient was getting at [facility] on the [address] where the patient was sent to the [facility] ER with chief complaint of confusion and agitation. The patient has been getting worse for the last few days per the correction staff. The patient said he may not be getting his medication though he is not very clear about how he was getting his antibiotics on time. He said he just left them on the pillow on the side and he will take them. The patient has not been running any fever since he came into the hospital. The patient did have an x-ray suggestive of left lower lobe infiltrate. The patient coughing up purulent sputum but apparently the intensity has decrease and the patient denies significant chest pain. The patient was started on Vancomycin and Zosyn. Infectious disease was asked to see the patient today for further recommendation regarding antibiotic therapy. REVIEW OF SYSTEMS: Constitutional: Positive for weakness and no fever. EYES: No complaint. HEENT: No complaint. Respiratory: As per HPI. Cardiovascular: No complaint. : No complaint. Gastrointestinal: No complaint. Musculoskeletal: No complaint. Integumentary: No complaint. Psychological: as per HPI. Endocrine: No complaint. Neurological: No complaint. Past medical history significant for asthma, COPD, gastroesophageal reflux disease, hearing disorder, osteoarthritis, pseudomonas MRSA pneumonia. Past surgical history: Arthroscopic right and left shoulder surgery, right foot surgery and hernia repair. SOCIAL HISTORY: No history of smoking. Did admit to marijuana use. FAMILY HISTORY: Brother with history of hypertension. Father with history of stomach cancer and hypertension. Mother with history of chronic obstructive pulmonary disease. ALLERGIES: ASPIRIN, SALICYLATE, IODINE, PREDNISONE. Medications include the patient is currently on: 1. DuoNeb. 2. Xyloprim. 3. Lipitor. 4. Cogentin. 5. Pulmicort. 6. Plavix. 7. Vitamin B12. 8. Depakote. 9. Mag oxide. 10. Vancomycin. 11. Singulair. 12. Piptazobactam. 13. Seroquel. On examination, blood pressure is 119/78 with a pulse of 84. Temperature 97.2. He is 97% on 2 L nasal cannula. General description is a middle age male up in the chair in no distress. No tachypnea or accessory muscles of respiration use. HEENT: Examination shows no pallor and no scleral icterus. Oral mucosa membranes dry. NECK: Trachea is central. No thyromegaly. LUNGS: Unlabored breathing. Decreased breath sounds. No wheeze. HEART: S1, S2 regular rate and rhythm. ABDOMEN: Soft. No tenderness. No guarding and no rigidity. EXTREMITIES: No edema of the feet. SKIN: No rash or mass palpable. NEUROLOGICALLY: The patient is awake, alert and oriented times three. Mood and affect normal. LABS: Hemoglobin 12.1, white count 6.0, BUN 6, creatinine 0.54. Blood cultures obtained currently pending. Sputum has been obtained which is currently pending. DIAGNOSTIC IMPRESSION AND PLAN: The patient presented to the hospital mostly with confusion, agitation in a patient who does have long history of psychosis currently getting treatment for MRSA pseudomonas pneumonia with high ( ) on Vancomycin for the MRSA currently with no evidence of any worsening infection. The patient does not look toxic. No fever or elevated white count. PLAN: 1. We will discontinue the Vancomycin as the ( ) were high on his last isolation. 2. We will add Zyvox and continue the patient on Zosyn to cover for pseudomonas. 3. We will wait for repeat sputum cultures to finalize. 4. We will follow up on clinical condition and cultures to further adjust medications if needed. Thank you for this consultation. We will follow this patient along with you. GENTRY
--- NOTE | 2017-01-31 11:36 | CONS ---
DATE OF SERVICE: 01/30/2017 PURPOSE OF CONSULTATION: Evaluation for agitation, psychosis, bipolar disorder and possible psychiatric admission. HISTORY OF PRESENT ILLNESS: The patient was admitted to the hospital to the medical floor with a diagnosis of MRSA pneumonitis. He has a history of COPD. He apparently became acutely psychotic in the last few days leading up to his hospitalization. He has had confusion. He had complicated medical issues including the underlying COPD, worsening dyspnea, Hyponatremia and steroid use. 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 He had psychiatric hospitalization in this facility April 08, 2016 for mixed symptoms of bipolar disorder relating to stress issues in his life that set off mood difficulties. His admission was complicated by lower extremity cellulitis. According to nursing staff, on admission, the patient was having difficulties with depressed mood, anxiety, difficulty with concentration, tearful and some mood swings. There was no clear indication of psychotic symptoms. He had a quiet evening last night. He did show some confusion. Nursing reports today he has been doing fairly well. His thoughts seemed clear. He has been cooperative. He is aware of his circumstances and treatment issues. He has not shown any significant difficulties with his mood including no clear indication of hypomanic, manic or depressive symptoms. He responds appropriately to staff. He generally has been calm and pleasant in his manner. When I interviewed the patient, it was difficult to get a clear history of recent events. He did acknowledge having some problems remembering some of his recent events. He did not seem to indicate that over the last few weeks or longer that he has had trouble with his mood. He reports no problem with depression or anxiety prior to the hospitalization. He did not indicate that he has had any problems with symptoms such as hallucinations or delusional thoughts. Medical records are not available but apparently in the recent past he was seen at [facility] and has had treatment for pneumonia. He was referred to [facility] for continued supportive care focusing on IV antibiotics. Prior to his hospitalization, he apparently developed significant agitation. According to nursing, it was reported that he was started on Seroquel. The dose was increased in an effort to reduce some of the agitation he was having. On admission, his Seroquel dose was 200 mg twice a day. In addition, he is on Depakote ER 500 mg a day presumably for psychiatric issues. His Depakote level on admission was 35. He also was on Cogentin 1 mg a day. Presumably to help treat EPS secondary to Seroquel. MENTAL STATUS: The patient was in bed, he sat up. He gave fairly good eye contact. Psychomotor activity was a little restless. He talked with somewhat of a speech impediment. He was able to answer questions generally appropriately. At times his answers were somewhat vague though generally connected to the questions asked. He was not too spontaneous though he was interactive. His affect was in reasonable range. He had a quiet mood . He did not appear to be distress in any way. There were no indications of thought disorder. He was oriented and alert. You could tell he was a day off in his orientation saying he thought it was and that it was the . He knew it was 2016. He could tell me the name of the hospital that he was at. He was able to name the President. He was able to tell me some of the events of earlier in the day. ASSESSMENT: This 62 -year-old male is admitted due to apparent altered mental status secondary to pneumonia. He has a history of two past psychiatric hospitalizations for steroid induced psychosis. He has had other mood difficulties and had an admission in April for mood disturbance that primarily was more depression. Though he did have a diagnosis of bipolar disorder. The question was raised as to whether it would appropriate to admit him to the psychiatric unit. At this point, it appears that some of the more difficult issues the patient has had including agitation at his care facility may have related primarily to his pulmonary infection. He has shown fairly good clearing of any agitation for possible psychotic symptoms. He is not showing any active signs of bipolar, symone or depression. There is some concern that he may be getting excessive sedation from Seroquel. As such, I will switch the patient from Seroquel to Zyprexa. Seroquel will be discontinued and I will start Zyprexa 5 mg three times a day. The dose of Zyprexa should be relatively equivalent to the dose of Seroquel he was on. On the other hand, Zyprexa is much less likely to cause the degree of sedation that he may have been getting from Seroquel. Due to very low incidence of EPS with Zyprexa, I will discontinue Cogentin. In regards to whether or not the patient is appropriate for a psychiatric admission, I would need to defer that decision at this time. Once the patient is medically stable, re-contact the psychiatric unit for follow-up consultation and if the patient remains on the medical floor through the weekend, I will see him in follow-up on Thursday. GENTRY
[2017-01-31 12:13] LABS: Glucose,Whole Blood 100 mg/dL (75-99)
--- NOTE | 2017-01-31 12:54 | P.PN ---
Subjective Principal diagnosis: Severe acute psychosis, severe dyspnea and shortness of breath, COPD exacerbation, MRSA pneumonitis, severe depression and bipolar disorders, hyperlipidemia, history of TIA. 62-year-old male was in [facility] for few days diagnosed with MRSA pneumonitis has been on Zyvox and Zosyn IV ended up going to [facility] on the [facility] on IV antibiotic, Patient developed to have acute psychosis and worsening symptom in the last few days ended up coming to the emergency department at [facility] where was seen and evaluated was diagnosed with acute psychosis still having significant harsh cough with productive phlegm copious amount and worsening dyspnea and shortness of breath with mild hypoxia also found to have mild to moderate hyponatremia has been a contributing factor to his confusion. Patient was seen psych will be admitted to medicine and continue IV antibiotics continued see pulmonary and infectious disease would be seen psych in the inpatient service when he is ready to be transfer hopefully patient might be able to be transferred to psych if medication adjustment is not enough. 01/30: She is very calm today. Son is at the bedside and updated in detail. Urine culture has been finalized with contamination and blood culture showing no growth after 24 hours. Sodium has improved to 135. IV fluids will be decreased to 50 mL per hour. Psychiatry and pulmonary medicine following the patient. 01/31/2017: Patient is feeling much better his definitely has improved slight bit with his psychosis psychiatry has not seen him yet continued see pulmonary he has significant improvement in his cough wheezes tightness and the pneumonitis. If is clear from psych standpoint patient be able to go back to [facility] on leg hopefully on Thursday. Objective - Vital Signs Vital signs: Vital Signs Temp 97.1 F L 01/31/17 07:00 Pulse 80 01/31/17 11:46 Resp 18 01/31/17 07:00 BP 150/96 01/31/17 07:00 Pulse Ox 93 L 01/31/17 07:00 Intake & Output 01/30/17 01/31/17 01/31/17 18:59 06:59 18:59 Intake Total 525 1350 Balance 525 1350 Intake: Intake, IV Titration 525 850 Amount Piperacillin-Tazobactam 3 50 .375 gm In Dextrose/Water 1 50ml.bag @ 12.5 mls/hr IVPB Q8HR [facility] Rx#: [id number] Sodium Chloride 0.9% 1, 800 000 ml @ 50 mls/hr IV . Q20H [facility] Rx#:[id number] Sodium Chloride 0.9% 1, 525 000 ml @ 75 mls/hr IV . [id number] [facility] Rx#:[id number] Oral 500 Other: Voiding Method Urinal Urinal Urinal # Voids 1 3 - Constitutional General appearance: Present: cooperative, disheveled, mild distress, thin. Absent: average body habitus, morbidly obese, no acute distress, obese, severe distress - EENT Eyes: Present: abnormal pupil, normal appearance. Absent: anicteric sclerae, disc margins sharp, edentulous, EOMI, PERRLA, fundus normal, photophobia, dentition normal, poor dentition, ptosis, scleral icterus ENT: Present: normal oropharynx. Absent: hard of hearing, hearing grossly normal, NA/AT, other, pharyngeal erythema, thrush, tonsillar exudates, tonsillar swelling Ears: bilateral: normal - Neck Neck: Present: normal ROM. Absent: lymphadenopathy, other, rigidity, stridor, thyromegaly Carotids: bilateral: upstroke normal Thyroid: bilateral: normal size - Respiratory Respiratory: bilateral: diminished, dullness, rales, rhonchi, wheezing, prolonged expiration, prolonged inspiration - Cardiovascular Rhythm: regular Heart sounds: normal: S1, S2 Abnormal Heart Sounds: Present: systolic murmur, S3 Gallop - Gastrointestinal General gastrointestinal: Present: normal bowel sounds, soft. Absent: absent bowel sounds, decreased bowel sounds, distended, hepatomegaly, hyperactive bowel sounds, organomegaly, rigid, scaphoid, splenomegaly, tenderness, umbilical hernia, ventral hernia - Integumentary Integumentary: Present: normal, pale, rash. Absent: calor, cellulitis, cyanotic , decreased turgor, flushed, jaundiced, normal turgor, ulcer - Neurologic Neurologic: Present: CNII-XII intact - Musculoskeletal Musculoskeletal: Present: generalized weakness, strength equal bilaterally. Absent: gait normal, right sided weakness, left sided weakness - Psychiatric Psychiatric: Present: A&O x's 3. Absent: appropriate affect, intact judgment & insight - Labs CBC & Chem 7: 01/31/17 06:00 01/31/17 06:00 Labs: Abnormal Lab Results - Last 24 Hours (Table) 01/30/17 01/31/17 01/31/17 Range/Units 17:09 02:00 06:00 RBC 3.64 L (4.30-5.90) m/uL Hgb 11.8 L (13.0-17.5) gm/dL Hct 35.4 L (39.0-53.0) % Plt Count 101 L (150-450) k/uL Eosinophils # 0.8 H (0-0.7) k/uL Sodium (137-145) mmol/L BUN (9-20) mg/dL Creatinine (0.66-1.25) mg/dL POC Glucose (mg/dL) 102 H 106 H (75-99) mg/dL Calcium (8.4-10.2) mg/dL Total Protein (6.3-8.2) g/dL Albumin (3.5-5.0) g/dL 01/31/17 01/31/17 Range/Units 06:00 12:07 RBC (4.30-5.90) m/uL Hgb (13.0-17.5) gm/dL Hct (39.0-53.0) % Plt Count (150-450) k/uL Eosinophils # (0-0.7) k/uL Sodium 130 L (137-145) mmol/L BUN 8 L (9-20) mg/dL Creatinine 0.60 L (0.66-1.25) mg/dL POC Glucose (mg/dL) 100 H (75-99) mg/dL Calcium 8.3 L (8.4-10.2) mg/dL Total Protein 5.4 L (6.3-8.2) g/dL Albumin 2.8 L (3.5-5.0) g/dL Microbiology - Last 24 Hours (Table) 01/29/17 08:30 Blood Culture - Preliminary Blood No Growth after 48 hours 01/29/17 08:30 Urine Culture - Final Urine,Voided Assessment and Plan Plan: 1 severe acute psychosis: Combination of history of bipolar and psych history has been seen psych for long time has been on Seroquel and Depakote which possibly medication are not working with his current symptoms also patient has been on steroids since his hospitalization might be a big factor of his psychosis add to it the hyponatremia the whole picture become worsening acute psychosis related to medical problem. Try to treat underlying disease and problem and will be seen psych for more adjustment medication. Psych service will be calling again for patient to be seen and hopefully with adjustment medication might help. 2 severe dyspnea and shortness of breath with chronic respiratory failure secondary to COPD and recurrent MRSA pneumonitis continue to treat problem. 3 COPD exacerbation continue patient underwent up Pulmicort still on tapering dose of steroid seen pulmonary patient has been on Singulair as well. Patient is off steroid which had a created more psychosis in the past. 4 MRSA pneumonitis has been on Zyvox and Zosyn continue medication and patient be seen ID as well. Apparently patient was approved for home IV infusion. 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 His sodium today is up to 1:30 6 Severe depression and bipolar disorders: Continue Seroquel and Depakote CAD continue to see psych regular basis, was on Cogentin as well. 7 hyperlipidemia: Remain on atorvastatin 10 mg daily. 8 gout: Has been on Zyloprim 100 mg daily she seen recently. 9 history of TIA: Patient still on Plavix resume medication. Discharge planning: If patient seen psych and scleral be able to be discharged back to [facility] most likely on Thursday.
--- NOTE | 2017-01-31 12:56 | P.PN ---
Subjective Patient seen and evaluated examined during the rounds he is a left remote, less agitated he is being monitored closely for electrolyte imbalance hypoglycemia and left-sided pneumonia, patient's mood is much better and almost back to the baseline he does not have agitated behavior now he is more calm and comfortable his phlegm production however is still there which is greenish to yellow in appearance Objective - Vital Signs Vital signs: Vital Signs Temp 97.1 F L 01/31/17 07:00 Pulse 80 01/31/17 11:46 Resp 18 01/31/17 07:00 BP 150/96 01/31/17 07:00 Pulse Ox 93 L 01/31/17 07:00 Intake & Output 01/30/17 01/31/17 01/31/17 18:59 06:59 18:59 Intake Total 525 1350 Balance 525 1350 Intake: Intake, IV Titration 525 850 Amount Piperacillin-Tazobactam 3 50 .375 gm In Dextrose/Water 1 50ml.bag @ 12.5 mls/hr IVPB Q8HR [facility] Rx#: [id number] Sodium Chloride 0.9% 1, 800 000 ml @ 50 mls/hr IV . Q20H [facility] Rx#:[id number] Sodium Chloride 0.9% 1, 525 000 ml @ 75 mls/hr IV . [id number] [facility] Rx#:[id number] Oral 500 Other: Voiding Method Urinal Urinal Urinal # Voids 1 3 - Exam Constitutional General appearance: cooperative, disheveled, mild distress - EENT Eyes: EOMI, PERRLA, poor dentition, normal appearance ENT: normal oropharynx Ears: bilateral: normal - Neck Neck: normal ROM Carotids: bilateral: upstroke normal, bruit absent Thyroid: bilateral: normal size, negative: enlarged, firm, nodule - Respiratory Respiratory: left: rales, bilateral: wheezing, prolonged expiration - Cardiovascular Rhythm: regular Heart sounds: normal: S1, S2 - Gastrointestinal General gastrointestinal: normal bowel sounds - Neurologic Neurologic: CNII-XII intact - Musculoskeletal Musculoskeletal: gait normal, generalized weakness, strength equal bilaterally - Psychiatric Psychiatric: A&O x's 3, appropriate affect - Labs CBC & Chem 7: 01/31/17 06:00 01/31/17 06:00 Labs: Abnormal Lab Results - Last 24 Hours (Table) 01/30/17 01/31/17 01/31/17 Range/Units 17:09 02:00 06:00 RBC 3.64 L (4.30-5.90) m/uL Hgb 11.8 L (13.0-17.5) gm/dL Hct 35.4 L (39.0-53.0) % Plt Count 101 L (150-450) k/uL Eosinophils # 0.8 H (0-0.7) k/uL Sodium (137-145) mmol/L BUN (9-20) mg/dL Creatinine (0.66-1.25) mg/dL POC Glucose (mg/dL) 102 H 106 H (75-99) mg/dL Calcium (8.4-10.2) mg/dL Total Protein (6.3-8.2) g/dL Albumin (3.5-5.0) g/dL 01/31/17 01/31/17 Range/Units 06:00 12:07 RBC (4.30-5.90) m/uL Hgb (13.0-17.5) gm/dL Hct (39.0-53.0) % Plt Count (150-450) k/uL Eosinophils # (0-0.7) k/uL Sodium 130 L (137-145) mmol/L BUN 8 L (9-20) mg/dL Creatinine 0.60 L (0.66-1.25) mg/dL POC Glucose (mg/dL) 100 H (75-99) mg/dL Calcium 8.3 L (8.4-10.2) mg/dL Total Protein 5.4 L (6.3-8.2) g/dL Albumin 2.8 L (3.5-5.0) g/dL Microbiology - Last 24 Hours (Table) 01/29/17 08:30 Blood Culture - Preliminary Blood No Growth after 48 hours 01/29/17 08:30 Urine Culture - Final Urine,Voided Assessment and Plan Plan: Left lower lobe pneumonia, likely mixed bacterial pneumonia History of pseudomonas and MRSA pneumonia, likely playing a major role in her current respiratory status Electrolyte imbalance with hyponatremia thrombocytopenia and hypoglycemia Agitated behavior is anxiety and apprehension Severe COPD emphysema Plan is to continue antibiotics monitor electrolytes closely gentle rehydration anxiolytics as tolerated, electrolytes continue to improve progressively Time with Patient: Greater than 30
[2017-01-31 17:29] LABS: Glucose,Whole Blood 79 mg/dL (75-99)
[2017-01-31 20:15] LABS: Glucose,Whole Blood 108 mg/dL (75-99)
[2017-01-31] MEDS: ATORVASTATIN 10 MG TAB PO SCH (20:51)
[2017-01-31] MEDS: MONTELUKAST 10 MG TAB PO SCH (20:51)
[2017-02-01] MEDS: IPRATROPIUM-ALBUTEROL 3 ML NEB INHALATION SCH ×7 (00:02→23:53)
[2017-02-01 02:51] LABS: Glucose,Whole Blood 101 mg/dL (75-99)
[2017-02-01] MEDS: SODIUM CHLORIDE 0.9% 1,000 ML IV SCH (05:14)
[2017-02-01 06:27] LABS: Basophils % (A) 1 %; CH 32.7; Eosinophils # (A) 0.7 k/uL (0-0.7); Eosinophils % (A) 9 %; HCT 37.5 % (39.0-53.0); HDW 2.14; HGB 12.7 gm/dL (13.0-17.5); Luc # (Auto) 0.15; Luc % (Auto) 2; Lymphocytes # (A) 2.8 k/uL (1.0-4.8); Lymphocytes % (A) 36 %; MCH 32.7 pg (25.0-35.0); MCHC 33.8 g/dL (31.0-37.0); MCV 96.8 fL (80.0-100.0); Mean Platelet Volume 7.5; Monocytes # (A) 0.6 k/uL (0-1.0); Monocytes % (A) 7 %; Neutrophils # (A) 3.6 k/uL (1.3-7.7); Neutrophils % (A) 46 %; RBC 3.88 m/uL (4.30-5.90); RDW 14.8 % (11.5-15.5); WBC 7.9 k/uL (3.8-10.6); WBC (Perox) 8.17
[2017-02-01 06:40] LABS: ALT 25 U/L (21-72); AST 28 U/L (17-59); Alkaline Phosphatase 78 U/L (38-126); Anion Gap 7 mmol/L; Blood Urea Nitrogen 9 mg/dL (9-20); Calcium 8.7 mg/dL (8.4-10.2); Carbon Dioxide 29 mmol/L (22-30); Chloride 96 mmol/L (98-107); Glucose 84 mg/dL (74-99); Non-African American GFR(MDRD) >60 (>60 ml/min/1.73 sqM); Potassium 4.3 mmol/L (3.5-5.1); Sodium 132 mmol/L (137-145); Total Bilirubin 0.4 mg/dL (0.2-1.3)
[2017-02-01] MEDS: BUDESONIDE 1 MG/2 ML NEBU INHALATION SCH ×2 (07:13→19:41)
[2017-02-01 07:37] LABS: Glucose,Whole Blood 84 mg/dL (75-99)
[2017-02-01] MEDS: BENZTROPINE MESYLATE 1 MG TAB PO SCH (07:55)
[2017-02-01] MEDS: DIVALPROEX ER 500 MG TAB.ER.24H PO SCH (07:55)
[2017-02-01] MEDS: CYANOCOBALAMIN 500 MCG TAB PO SCH (07:56)
[2017-02-01] MEDS: MAGNESIUM OXIDE 400 MG TAB PO SCH (07:56)
[2017-02-01] MEDS: CLOPIDOGREL 75 MG TAB PO SCH (07:56)
[2017-02-01] MEDS: LINEZOLID 600 MG TAB PO SCH ×2 (07:56→20:04)
[2017-02-01] MEDS: PIPERACILLIN-TAZOBACTAM 3.375 GM in DEXTROSE/WATER 1 50ML.BAG IVPB SCH ×3 (07:56→23:07)
[2017-02-01] MEDS: ALLOPURINOL 100 MG TAB PO SCH (07:56)
[2017-02-01] MEDS: OLANZapine 5 MG TAB PO SCH ×3 (07:56→20:04)
--- NOTE | 2017-02-01 09:38 | P.PN ---
Subjective Principal diagnosis: Severe acute psychosis, severe dyspnea and shortness of breath, COPD exacerbation, MRSA pneumonitis, severe depression and bipolar disorders, hyperlipidemia, history of TIA. More clear his change mental status has improved significantly. 62-year-old male was in [facility] for few days diagnosed with MRSA pneumonitis has been on Zyvox and Zosyn IV ended up going to [facility] on the [facility] on IV antibiotic, Patient developed to have acute psychosis and worsening symptom in the last few days ended up coming to the emergency department at [facility] where was seen and evaluated was diagnosed with acute psychosis still having significant harsh cough with productive phlegm copious amount and worsening dyspnea and shortness of breath with mild hypoxia also found to have mild to moderate hyponatremia has been a contributing factor to his confusion. Patient was seen psych will be admitted to medicine and continue IV antibiotics continued see pulmonary and infectious disease would be seen psych in the inpatient service when he is ready to be transfer hopefully patient might be able to be transferred to psych if medication adjustment is not enough. 01/30: She is very calm today. Son is at the bedside and updated in detail. Urine culture has been finalized with contamination and blood culture showing no growth after 24 hours. Sodium has improved to 135. IV fluids will be decreased to 50 mL per hour. Psychiatry and pulmonary medicine following the patient. 01/31/2017: Patient is feeling much better his definitely has improved slight bit with his psychosis psychiatry has not seen him yet continued see pulmonary he has significant improvement in his cough wheezes tightness and the pneumonitis. If is clear from psych standpoint patient be able to go back to [facility] on hopefully on Thursday. Patient ended up seen psych yesterday apparently the change in his Depakote suspension time had a created slightly bit problem he is more clear today and doing better his pneumonitis still been treated with IV antibiotics and hopefully patient be able to go back to [facility] tomorrow. Objective - Vital Signs Vital signs: Vital Signs Temp 97 F L 02/01/17 07:00 Pulse 84 02/01/17 07:35 Resp 16 02/01/17 07:00 BP 134/90 02/01/17 07:00 Pulse Ox 96 02/01/17 07:00 Intake & Output 01/31/17 02/01/17 02/01/17 18:59 06:59 18:59 Intake Total 450 1140 Output Total 1500 Balance -1050 1140 Intake: Intake, IV Titration 450 400 Amount Piperacillin-Tazobactam 3 50 .375 gm In Dextrose/Water 1 50ml.bag @ 12.5 mls/hr IVPB Q8HR [facility] Rx#: [id number] Sodium Chloride 0.9% 1, 400 400 000 ml @ 50 mls/hr IV . Q20H [facility] Rx#:[id number] Oral 740 Output: Urine 1500 Other: Voiding Method Urinal Urinal Urinal # Voids 4 - Constitutional General appearance: Present: cooperative, thin. Absent: average body habitus, disheveled, mild distress, morbidly obese, no acute distress, obese, severe distress - EENT Eyes: Present: normal appearance. Absent: abnormal pupil, anicteric sclerae, disc margins sharp, edentulous, EOMI, PERRLA, fundus normal, photophobia, dentition normal, poor dentition, ptosis, scleral icterus ENT: Present: normal oropharynx. Absent: hard of hearing, hearing grossly normal, NA/AT, other, pharyngeal erythema, thrush, tonsillar exudates, tonsillar swelling Ears: bilateral: normal - Neck Neck: Present: normal ROM. Absent: lymphadenopathy, other, rigidity, stridor, thyromegaly Carotids: bilateral: upstroke normal Thyroid: bilateral: normal size - Respiratory Respiratory: bilateral: diminished, dullness, rales, rhonchi, wheezing, prolonged expiration - Cardiovascular Rhythm: regular Heart sounds: normal: S1, S2 Abnormal Heart Sounds: Present: systolic murmur, S3 Gallop - Gastrointestinal General gastrointestinal: Present: decreased bowel sounds, distended, soft. Absent: absent bowel sounds, hepatomegaly, hyperactive bowel sounds, normal bowel sounds, organomegaly, rigid, scaphoid, splenomegaly, tenderness, umbilical hernia, ventral hernia - Integumentary Integumentary: Present: normal, rash. Absent: calor, cellulitis, cyanotic, decreased turgor, flushed, jaundiced, normal turgor, pale, ulcer - Neurologic Neurologic: Present: CNII-XII intact - Musculoskeletal Musculoskeletal: Present: gait normal, generalized weakness, strength equal bilaterally. Absent: right sided weakness, left sided weakness - Psychiatric Psychiatric: Present: A&O x's 3, appropriate affect - Labs CBC & Chem 7: 02/01/17 05:55 02/01/17 05:55 Labs: Abnormal Lab Results - Last 24 Hours (Table) 01/31/17 01/31/17 02/01/17 Range/Units 12:07 20:13 02:50 RBC (4.30-5.90) m/uL Hgb (13.0-17.5) gm/dL Hct (39.0-53.0) % Plt Count (150-450) k/uL Sodium (137-145) mmol/L Chloride (98-107) mmol/L POC Glucose (mg/dL) 100 H 108 H 101 H (75-99) mg/dL Total Protein (6.3-8.2) g/dL Albumin (3.5-5.0) g/dL 02/01/17 02/01/17 Range/Units 05:55 05:55 RBC 3.88 L (4.30-5.90) m/uL Hgb 12.7 L (13.0-17.5) gm/dL Hct 37.5 L (39.0-53.0) % Plt Count 114 L (150-450) k/uL Sodium 132 L (137-145) mmol/L Chloride 96 L (98-107) mmol/L POC Glucose (mg/dL) (75-99) mg/dL Total Protein 6.0 L (6.3-8.2) g/dL Albumin 3.2 L (3.5-5.0) g/dL Microbiology - Last 24 Hours (Table) 01/31/17 01:10 Gram Stain - Preliminary Sputum 01/29/17 08:30 Blood Culture - Preliminary Blood No Growth after 48 hours Assessment and Plan Plan: 1 severe acute psychosis: Combination of history of bipolar and psych history has been seen psych for long time has been on Seroquel and Depakote which possibly medication are not working with his current symptoms also patient has been on steroids since his hospitalization might be a big factor of his psychosis add to it the hyponatremia the whole picture become worsening acute psychosis related to medical problem. Try to treat underlying disease and problem and will be seen psych for more adjustment medication. Psych service will be calling again for patient to be seen and hopefully with adjustment medication might help. With a change in meds and management patient is doing much better controlling his pneumonitis had improve his psychosis significantly specially putting him back on his meds with dispenses same time he was doing it at home. 2 severe dyspnea and shortness of breath with chronic respiratory failure secondary to COPD and recurrent MRSA pneumonitis continue to treat problem. 3 COPD exacerbation continue patient underwent up Pulmicort still on tapering dose of steroid seen pulmonary patient has been on Singulair as well. Patient is off steroid which had a created more psychosis in the past. 4 MRSA pneumonitis has been on Zyvox and Zosyn continue medication and patient be seen ID as well. Apparently patient was approved for home IV infusion. Ration should be back in [facility] tomorrow to continue IV antibiotic for the next 2 weeks. 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 His sodium today is up to 130, back to normal with improvement of his SIADH. 6 Severe depression and bipolar disorders: Continue Seroquel and Depakote CAD continue to see psych regular basis, was on Cogentin as well. 7 hyperlipidemia: Remain on atorvastatin 10 mg daily. 8 gout: Has been on Zyloprim 100 mg daily she seen recently. 9 history of TIA: Patient still on Plavix resume medication. Discharge plannin: Patient will be able to be discharged back to [facility] most likely on Thursday.
[2017-02-01 11:36] LABS: Glucose,Whole Blood 88 mg/dL (75-99)
--- NOTE | 2017-02-01 12:48 | P.PN ---
Subjective Patient seen and evaluated examined during the rounds he is a left remote, less agitated he is being monitored closely for electrolyte imbalance hypoglycemia and left-sided pneumonia, patient's mood is much better and almost back to the baseline he does not have agitated behavior now he is more calm and comfortable his phlegm production however is still there which is greenish to yellow in appearance Patient seen and evaluated examined during the rounds he is more awake and alert breathing comfortably he is tolerating by mouth well cough congestion or shortness of breath is improved compared to prior exam feels better his mental status continued to improve patient however is being evaluated by psychiatric service for agitated behavior Objective - Vital Signs Vital signs: Vital Signs Temp 97 F L 02/01/17 07:00 Pulse 80 02/01/17 11:28 Resp 16 02/01/17 07:00 BP 134/90 02/01/17 07:00 Pulse Ox 96 02/01/17 07:00 Intake & Output 01/31/17 02/01/17 02/01/17 18:59 06:59 18:59 Intake Total 450 1140 Output Total 1500 Balance -1050 1140 Intake: Intake, IV Titration 450 400 Amount Piperacillin-Tazobactam 3 50 .375 gm In Dextrose/Water 1 50ml.bag @ 12.5 mls/hr IVPB Q8HR [facility] Rx#: [id number] Sodium Chloride 0.9% 1, 400 400 000 ml @ 50 mls/hr IV . Q20H [facility] Rx#:[id number] Oral 740 Output: Urine 1500 Other: Voiding Method Urinal Urinal Urinal # Voids 4 - Exam Constitutional General appearance: cooperative, disheveled, mild distress - EENT Eyes: EOMI, PERRLA, poor dentition, normal appearance ENT: normal oropharynx Ears: bilateral: normal - Neck Neck: normal ROM Carotids: bilateral: upstroke normal, bruit absent Thyroid: bilateral: normal size, negative: enlarged, firm, nodule - Respiratory Respiratory: left: rales, bilateral: wheezing, prolonged expiration - Cardiovascular Rhythm: regular Heart sounds: normal: S1, S2 - Gastrointestinal General gastrointestinal: normal bowel sounds - Neurologic Neurologic: CNII-XII intact - Musculoskeletal Musculoskeletal: gait normal, generalized weakness, strength equal bilaterally - Psychiatric Psychiatric: A&O x's 3, appropriate affect - Labs CBC & Chem 7: 02/01/17 05:55 02/01/17 05:55 Labs: Abnormal Lab Results - Last 24 Hours (Table) 01/31/17 02/01/17 02/01/17 Range/Units 20:13 02:50 05:55 RBC 3.88 L (4.30-5.90) m/uL Hgb 12.7 L (13.0-17.5) gm/dL Hct 37.5 L (39.0-53.0) % Plt Count 114 L (150-450) k/uL Sodium (137-145) mmol/L Chloride (98-107) mmol/L POC Glucose (mg/dL) 108 H 101 H (75-99) mg/dL Total Protein (6.3-8.2) g/dL Albumin (3.5-5.0) g/dL 02/01/17 Range/Units 05:55 RBC (4.30-5.90) m/uL Hgb (13.0-17.5) gm/dL Hct (39.0-53.0) % Plt Count (150-450) k/uL Sodium 132 L (137-145) mmol/L Chloride 96 L (98-107) mmol/L POC Glucose (mg/dL) (75-99) mg/dL Total Protein 6.0 L (6.3-8.2) g/dL Albumin 3.2 L (3.5-5.0) g/dL Microbiology - Last 24 Hours (Table) 01/29/17 08:30 Blood Culture - Preliminary Blood No Growth after 72 hours 01/31/17 01:10 Gram Stain - Preliminary Sputum Assessment and Plan Plan: Left lower lobe pneumonia, likely mixed bacterial pneumonia History of pseudomonas and MRSA pneumonia, likely playing a major role in her current respiratory status Electrolyte imbalance with hyponatremia thrombocytopenia and hypoglycemia Agitated behavior is anxiety and apprehension Severe COPD emphysema Other issues include mood disorder and depression bipolar disorder dyslipidemia and gout with history of prior TIA Plan is to continue antibiotics monitor electrolytes closely gentle rehydration anxiolytics as tolerated, electrolytes continue to improve progressively Time with Patient: Greater than 30
[2017-02-01 17:33] LABS: Glucose,Whole Blood 81 mg/dL (75-99)
[2017-02-01] MEDS: MONTELUKAST 10 MG TAB PO SCH (20:03)
[2017-02-01] MEDS: ATORVASTATIN 10 MG TAB PO SCH (20:03)
[2017-02-01 21:05] LABS: Glucose,Whole Blood 86 mg/dL (75-99)
[2017-02-01 21:40] VITALS: RESP 20; TEMP 97.5
[2017-02-02 02:30] LABS: Glucose,Whole Blood 107 mg/dL (75-99)
[2017-02-02] MEDS: SODIUM CHLORIDE 0.9% 1,000 ML IV SCH (03:08)
[2017-02-02] MEDS: IPRATROPIUM-ALBUTEROL 3 ML NEB INHALATION SCH ×4 (04:40→16:10)
[2017-02-02] MEDS: BUDESONIDE 1 MG/2 ML NEBU INHALATION SCH (07:23)
[2017-02-02] MEDS: PIPERACILLIN-TAZOBACTAM 3.375 GM in DEXTROSE/WATER 1 50ML.BAG IVPB SCH (07:40)
[2017-02-02] MEDS: DIVALPROEX ER 500 MG TAB.ER.24H PO SCH (07:41)
[2017-02-02] MEDS: CLOPIDOGREL 75 MG TAB PO SCH (07:41)
[2017-02-02] MEDS: MAGNESIUM OXIDE 400 MG TAB PO SCH (07:41)
[2017-02-02] MEDS: ALLOPURINOL 100 MG TAB PO SCH (07:41)
[2017-02-02] MEDS: OLANZapine 5 MG TAB PO SCH (07:41)
[2017-02-02] MEDS: BENZTROPINE MESYLATE 1 MG TAB PO SCH (07:41)
[2017-02-02] MEDS: CYANOCOBALAMIN 500 MCG TAB PO SCH (07:42)
[2017-02-02] MEDS: LINEZOLID 600 MG TAB PO SCH (07:42)
[2017-02-02 07:57] LABS: Glucose,Whole Blood 92 mg/dL (75-99)
[2017-02-02 08:20] VITALS: BP 138/90
--- NOTE | 2017-02-02 09:35 | PN ---
DATE OF SERVICE: 02/01/2017 Reason for follow up is pneumonia. INTERVAL HISTORY: The patient is afebrile, has been breathing comfortably. Denies significant chest pain, shortness of breath, occasional cough. Denies any abdominal pain or any diarrhea. On examination, blood pressure 110/80 with a pulse of 86, temperature of 97.5, he is 91% on room air. General description is a middle-aged male, up in the bed in no distress. RESPIRATORY SYSTEM: Unlabored breathing with decreased breath sounds at the bases. HEART: S1, S2, regular rate and rhythm. ABDOMEN: Soft, no tenderness. LABS: Hemoglobin 12.7, white count of 7.9 with a BUN of 9, creatinine 0.70. Sputum showing gram-negative bacilli. DIAGNOSTIC IMPRESSION AND PLAN: Patient with recent admission to [facility] that did have evidence of pneumonia. Sputum was positive for pseudomonas and methicillin-resistant Staphylococcus aureus. Patient has been Zyvox and Fortaz at this facility because of agitation and psychosis which seem to be showing clinical improvement currently on Zosyn and Zyvox. He can be switched back to p.o. Zyvox and IV Fortaz for 10 days to finish course of therapy. Continue supportive care. MTDD
[2017-02-02 11:16] VITALS: PULSE 84
[2017-02-02 12:01] LABS: Glucose,Whole Blood 88 mg/dL (75-99)
--- NOTE | 2017-02-02 14:55 | PN ---
DATE OF SERVICE: 02/02/2017 Reason for followup is pneumonia. INTERVAL HISTORY: The patient is afebrile. He is breathing comfortably. Denies any significant chest pain or shortness of breath with a cough. No nausea, vomiting or any diarrhea. On examination, blood pressure 132/90 with a pulse of 81, temperature 98. He is 99% on 2 L nasal cannula. General description is a middle-aged male lying in bed in no distress. RESPIRATORY SYSTEM: Unlabored breathing, clear to auscultation anteriorly. HEART: S1, S2, regular rate and rhythm. ABDOMEN: Soft, no tenderness. LABS: Hemoglobin 12.7, white count of 7.9, sputum is showing gram negative and jeb, slight colonized. DIAGNOSTIC IMPRESSION AND PLAN: Patient with pseudomonas and methicillin- resistant Staphylococcus aureus pneumonia. Patient at this time is ( ) and the IV Zosyn that was switched over to IV Fortaz and continue with the p.o. ( ) to finish the course of therapy. Continue supportive care. MTDD
--- NOTE | 2017-02-02 15:17 | P.DS ---
Providers Date of admission: 01/29/17 10:18 Expected date of discharge: 02/02/17 Attending physician: Darío Arce Consults: 01/29/17 10:32 Consult Physician Routine Consulting Provider: Jonatan Gonzalez Consult Reason/Comments: acute psychosis Do you want consulting provider notified?: Yes 01/29/17 12:48 Consult Physician Routine Consulting Provider: Calin Choudhury Consult Reason/Comments: pneumonia Do you want consulting provider notified?: Yes 01/30/17 14:00 Consult Physician Routine Consulting Provider: Cynthia Darnell Consult Reason/Comments: mrsa pneumonia, seen at [facility] Do you want consulting provider notified?: Yes Primary care physician: Lynette Ana [facility] Course: Severe acute psychosis, severe dyspnea and shortness of breath, COPD exacerbation, MRSA pneumonitis, severe depression and bipolar disorders, hyperlipidemia, history of TIA. More clear his change mental status has improved significantly. 62-year-old male was in [facility] for few days diagnosed with MRSA pneumonitis has been on Zyvox and Zosyn IV ended up going to [facility] on the [facility] on IV antibiotic, Patient developed to have acute psychosis and worsening symptom in the last few days ended up coming to the emergency department at [facility] where was seen and evaluated was diagnosed with acute psychosis still having significant harsh cough with productive phlegm copious amount and worsening dyspnea and shortness of breath with mild hypoxia also found to have mild to moderate hyponatremia has been a contributing factor to his confusion. Patient was seen psych will be admitted to medicine and continue IV antibiotics continued see pulmonary and infectious disease would be seen psych in the inpatient service when he is ready to be transfer hopefully patient might be able to be transferred to psych if medication adjustment is not enough. 01/30: He is very calm today. Son is at the bedside and updated in detail. Urine culture has been finalized with contamination and blood culture showing no growth after 24 hours. Sodium has improved to 135. IV fluids will be decreased to 50 mL per hour. Psychiatry and pulmonary medicine following the patient. 01/31/2017: Patient is feeling much better his definitely has improved slight bit with his psychosis psychiatry has not seen him yet continued see pulmonary he has significant improvement in his cough wheezes tightness and the pneumonitis. If is clear from psych standpoint patient be able to go back to [facility] on leg hopefully on Thursday. Patient ended up seen psych yesterday apparently the change in his Depakote suspension time had a created slightly bit problem he is more clear today and doing better his pneumonitis still been treated with IV antibiotics and hopefully patient be able to go back to [facility] tomorrow. 02/01: Patient is also on Seroquel and placed on Zyprexa. Dr. Darnell has recommended Fortaz and Zyvox for another 10 days. Patient is anxious to be discharged back to [facility]. Patient will be discharged today in stable condition. 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 Perez. Impression and plan of care have been directed as dictated by the signing physician. Lela Valdovinos nurse practitioner acting as scribe for signing physician. Patient Condition at Discharge: Good Plan - Discharge Summary New Discharge Prescriptions: New cefTAZidime [Fortaz] 2 gm IVPB Q8HR #30 vial Linezolid [Zyvox] 600 mg PO Q12HR #20 tab OLANZapine [ZyPREXA] 5 mg PO TID tab Continue Montelukast [Singulair] 10 mg PO HS Allopurinol [Zyloprim] 100 mg PO DAILY tab Atorvastatin [Lipitor] 10 mg PO HS tab Benztropine Mesylate [Cogentin] 1 mg PO DAILY #30 tab Clopidogrel [Plavix] 75 mg PO DAILY tab Ipratropium-Albuterol Nebulize [Duoneb 0.5 mg-3 mg/3 ml Soln] 3 ml INHALATION RT-Q4H Magnesium Oxide [Mag-Ox] 400 mg PO DAILY Divalproex ER [Depakote ER] 500 mg PO DAILY Cyanocobalamin [Vitamin B-12] 500 mcg PO DAILY Budesonide [Pulmicort] 1 mg INHALATION RT-BID Discontinued QUEtiapine [SEROquel] 200 mg PO BID Discharge Medication List Montelukast [Singulair] 10 mg PO HS 11/06/14 [History] Allopurinol [Zyloprim] 100 mg PO DAILY tab 04/11/16 [Rx] Atorvastatin [Lipitor] 10 mg PO HS tab 04/11/16 [Rx] Benztropine Mesylate [Cogentin] 1 mg PO DAILY #30 tab 04/11/16 [Rx] Clopidogrel [Plavix] 75 mg PO DAILY tab 04/11/16 [Rx] Ipratropium-Albuterol Nebulize [Duoneb 0.5 mg-3 mg/3 ml Soln] 3 ml INHALATION RT -Q4H 09/24/16 [History] Magnesium Oxide [Mag-Ox] 400 mg PO DAILY 09/24/16 [History] Budesonide [Pulmicort] 1 mg INHALATION RT-BID 01/29/17 [History] Cyanocobalamin [Vitamin B-12] 500 mcg PO DAILY 01/29/17 [History] Divalproex ER [Depakote ER] 500 mg PO DAILY 01/29/17 [History] Linezolid [Zyvox] 600 mg PO Q12HR #20 tab 02/02/17 [Rx] OLANZapine [ZyPREXA] 5 mg PO TID tab 02/02/17 [Rx] cefTAZidime [Fortaz] 2 gm IVPB Q8HR #30 vial 02/02/17 [Rx] Follow up Appointment(s)/Referral(s): Lynette Perez MD [Primary Care Provider] - 1-2 days Discharge Disposition: TRANSFER TO SNF/ECF
== END 2017-02-02 16:00 | DRG 190 ==
LOC: EC 07:44 → 4MS4W 10:18 → 5MS5E 16:00
PROVIDERS: ADMIT Internal Medicine Geriatric Medicine; ATTEND Internal Medicine Geriatric Medicine
DX: J44.0 Chronic obstructive pulmonary disease with (acute) lower respiratory infection (principal); J15.212 Pneumonia due to Methicillin resistant Staphylococcus aureus; J15.1 Pneumonia due to Pseudomonas; J96.11 Chronic respiratory failure with hypoxia; D69.6 Thrombocytopenia, unspecified; F23 Brief psychotic disorder; E22.2 Syndrome of inappropriate secretion of antidiuretic hormone; K21.9 Gastro-esophageal reflux disease without esophagitis; M10.9 Gout, unspecified; Z79.02 Long term (current) use of antithrombotics/antiplatelets; Z79.899 Other long term (current) drug therapy; Z80.0 Family history of malignant neoplasm of digestive organs; Z82.49 Family history of ischemic heart disease and other diseases of the circulatory system; Z82.5 Family history of asthma and other chronic lower respiratory diseases; Z86.14 Personal history of Methicillin resistant Staphylococcus aureus infection; Z86.73 Personal history of transient ischemic attack (TIA), and cerebral infarction without residual deficits; Z87.01 Personal history of pneumonia (recurrent); J44.1 Chronic obstructive pulmonary disease with (acute) exacerbation; I25.10 Atherosclerotic heart disease of native coronary artery without angina pectoris; H91.90 Unspecified hearing loss, unspecified ear; F31.9 Bipolar disorder, unspecified; E78.5 Hyperlipidemia, unspecified; R63.0 Anorexia; Z68.23 Body mass index [BMI] 23.0-23.9, adult; Z88.8 Allergy status to other drugs, medicaments and biological substances; Z88.6 Allergy status to analgesic agent; Z91.018 Allergy to other foods; Z79.52 Long term (current) use of systemic steroids; E16.2 Hypoglycemia, unspecified; J45.909 Unspecified asthma, uncomplicated; R51 Headache; R27.0 Ataxia, unspecified
CPT/HCPCS: 36415; 71020; 80053; 80164; 80306; 80320; 81003; 82075; 82140; 82150; 82533; 82550; 82553; 83605; 83690; 84484; 85025; 85610; 85730; 87040; 87070; 87077; 87086; 87186; 87205; 93005; 94640

== ENCOUNTER → 2017-05-08 | Outpatient (CLI) | payer MEDICARE, OTHER | END | disposition home or self-care (01) | LOC: LABWHC1 10:28 | PROVIDERS: ATTEND Otolaryngology | DX: J30.89 Other allergic rhinitis (principal) | CPT/HCPCS: 36415 ==

== ENCOUNTER 2018-05-04 14:44 | Emergency (ER) | payer MEDICARE, OTHER ==
[2018-05-04 15:01] VITALS: RESP 18
--- NOTE | 2018-05-04 20:38 | ED ---
Psych HPI - General Source: patient, RN/MD, EMS, RN notes reviewed, old records reviewed Mode of arrival: EMS - History of Present Illness MD Complaint: altered mental status, other <Bryant Sheikh - Last Filed: 05/04/18 20:36> <Delma June - Last Filed: 05/05/18 00:26> - General Chief Complaint: Psychiatric Symptoms Stated Complaint: altered Time Seen by Provider: 05/04/18 14:54 - History of Present Illness Initial Comments: This is a 63-year-old male with a history of psychiatric disorder who was seen at [facility] prior to arrival here for altered mental status. He was medically cleared and it was thought that he may have been taking too many of his psychiatric medications. He was transferred here for further evaluation. No fevers chills nausea vomiting sweats no trauma reported. No overt suicidal thoughts or ideation. No other modifying factors at this time. ( Bryant Sheikh) - Related Data Home Medications Medication Instructions Recorded Confirmed Montelukast [Singulair] 10 mg PO HS 11/06/14 05/04/18 Divalproex ER [Depakote ER] 500 mg PO DAILY 01/29/17 05/04/18 Previous Rx's Medication Instructions Recorded Allopurinol [Zyloprim] 100 mg PO DAILY tab 04/11/16 Atorvastatin [Lipitor] 10 mg PO HS tab 04/11/16 Benztropine Mesylate [Cogentin] 1 mg PO DAILY #30 tab 04/11/16 Clopidogrel [Plavix] 75 mg PO DAILY tab 04/11/16 OLANZapine [ZyPREXA] 5 mg PO TID tab 02/02/17 Allergies Allergy/AdvReac Type Severity Reaction Status Date / Time aspirin Allergy Severe Anaphylaxis Verified 05/04/18 16:34 Salicylates Allergy Severe Anaphylaxis Verified 05/04/18 16:34 iodine Allergy Dyspnea Verified 05/04/18 16:34 iohexol [From Omnipaque 140] Allergy Dyspnea Verified 05/04/18 16:34 prednisone Allergy Confusion, Verified 05/04/18 16:34 SEMI COMATOSE nut Allergy Anaphylaxis Uncoded 01/29/17 07:52 Review of Systems ROS Other: All systems not noted in ROS Statement are negative. <Bryant Sheikh - Last Filed: 05/04/18 20:36> ROS Other: All systems not noted in ROS Statement are negative. <Delma June - Last Filed: 05/05/18 00:26> ROS Statement: Those systems with pertinent positive or pertinent negative responses have been documented in the HPI. Past Medical History Past Medical History: Asthma, GERD/Reflux, Hearing Disorder / Deafness, Osteoarthritis (OA) Additional Past Medical History / Comment(s): GOUT History of Any Multi-Drug Resistant Organisms: MRSA Date of last positivie culture/infection: 09/22/2016 MDRO Source:: sputum Past Surgical History: Ear Surgery, Hernia Repair Additional Past Surgical History / Comment(s): ARTHRSCOPIC RIGHT AND LEFT SHOULDER, RIGHT FOOT Past Anesthesia/Blood Transfusion Reactions: Motion Sickness, Postoperative Nausea & Vomiting (PONV) Past Psychological History: Depression Smoking Status: Never smoker Past Alcohol Use History: None Reported Past Drug Use History: Marijuana - Past Family History Brother(s) Family Medical History: Hypertension Sister(s) Family Medical History: No Reported History Son(s) Family Medical History: No Reported History Father Family Medical History: Cancer, Hypertension Additional Family Medical History / Comment(s): FROM STOMACH CANCER Mother Family Medical History: COPD <Bryant Sheikh - Last Filed: 05/04/18 20:36> General Exam Limitations: altered mental status General appearance: alert, in no apparent distress Head exam: Present: atraumatic, normocephalic, normal inspection Eye exam: Present: normal appearance, PERRL, EOMI. Absent: scleral icterus, conjunctival injection, periorbital swelling ENT exam: Present: normal exam, mucous membranes moist Neck exam: Present: normal inspection. Absent: tenderness, meningismus, lymphadenopathy Respiratory exam: Present: normal lung sounds bilaterally. Absent: respiratory distress, wheezes, rales, rhonchi, stridor Cardiovascular Exam: Present: regular rate, normal rhythm, normal heart sounds. Absent: systolic murmur, diastolic murmur, rubs, gallop, clicks GI/Abdominal exam: Present: soft, normal bowel sounds. Absent: distended, tenderness, guarding, rebound, rigid Extremities exam: Present: normal inspection, full ROM, normal capillary refill. Absent: tenderness, pedal edema, joint swelling, calf tenderness Back exam: Present: normal inspection Neurological exam: Present: alert, oriented X3, CN II-XII intact Psychiatric exam: Present: flat affect Skin exam: Present: warm, dry, intact, normal color. Absent: rash <Bryant Sheikh - Last Filed: 05/04/18 20:36> <Delma June - Last Filed: 05/05/18 00:26> - General Exam Comments Initial Comments: This a well-developed well-nourished awake though somewhat lethargic male (Bryant Sheikh) Course <Bryant Sheikh - Last Filed: 05/04/18 20:36> <Delma June - Last Filed: 05/05/18 00:26> Vital Signs 05/04/18 05/04/18 14:53 23:03 Temperature 97.4 F L Pulse Rate 58 L 86 Respiratory 18 18 Rate Blood Pressure 119/79 106/79 O2 Sat by Pulse 93 L 94 L Oximetry - Reevaluation(s) Reevaluation #1: 05/04/18 20:37 I did discuss the case with Dr. Ewing, the patient is to be evaluated by the psychiatric service. The exam is pending at this time (Brynat Sheikh) Medical Decision Making <Bryant Sheikh - Last Filed: 05/04/18 20:36> <Delma June - Last Filed: 05/05/18 00:26> - Medical Decision Making Patient care was signed out to me by Dr. Sheikh at 9 PM. Patient was awaiting evaluation by EPS nurse. Patient was evaluated by the EPS nurse who is not familiar with what this patient's baseline is. I reevaluated this patient, he is awake alert, oriented aware of why he went to the hospitalist morning and why he was transferred here. At this time patient is eager for discharge home. Patient care was discussed with Dr. Arce who is very familiar with this patient and states the patient is at baseline and is stable for discharge home EPS updated and agreeable with plan (Delma June) Disposition <Bryant Sheikh - Last Filed: 05/04/18 20:36> Is patient prescribed a controlled substance at d/c from ED?: No <Delma June - Last Filed: 05/05/18 00:26> Clinical Impression: Confusion Condition: Stable Instructions: Altered Mental Status (ED) Referrals: Lynette Perez MD [Primary Care Provider] - 1-2 days
[2018-05-05 01:46] VITALS: BP 103/80; PULSE 87; TEMP 99.4
== END 2018-05-05 01:46 ==
LOC: EC 14:44
DX: R41.0 Disorientation, unspecified (principal); J45.909 Unspecified asthma, uncomplicated; F32.9 Major depressive disorder, single episode, unspecified; Z79.899 Other long term (current) drug therapy; Z88.6 Allergy status to analgesic agent; Z88.8 Allergy status to other drugs, medicaments and biological substances; Z91.048 Other nonmedicinal substance allergy status; Z91.018 Allergy to other foods
CPT/HCPCS: 82075; 99285

== ENCOUNTER 2020-08-31 01:07 | Emergency (ER) | payer MEDICARE ==
[2020-08-31 07:47] LABS: ALT 55 U/L (4-49); AST 97 U/L (17-59); African American GFR (CKD) >90 (>60 ml/min/1.73 sqM); Albumin 3.2 g/dL (3.5-5.0); Alkaline Phosphatase 110 U/L (38-126); Amylase <30 U/L (30-110); Anion Gap 5 mmol/L; Blood Urea Nitrogen 14 mg/dL (9-20); Calcium 8.1 mg/dL (8.4-10.2); Carbon Dioxide 27 mmol/L (22-30); Chloride 100 mmol/L (98-107); Creatine Kinase 64 U/L (55-170); Creatine Kinase MB <0.2 ng/mL (0.0-2.4); GGT 45 U/L (15-73); Glucose 99 mg/dL (74-99); Lipase 48 U/L (23-300); Non-African American GFR(CKD) >90 (>60 ml/min/1.73 sqM); Potassium 3.4 mmol/L (3.5-5.1); Sodium 132 mmol/L (137-145); Total Protein 6.3 g/dL (6.3-8.2); Troponin I <0.012 ng/mL (0.000-0.034)
[2020-08-31 08:11] LABS: Appearance,Urine Clear (Clear); Bilirubin,Urine Negative (Negative); Blood,Urine Negative (Negative); Color,Urine Yellow; Glucose,Urine (UA) Negative (Negative); Hyaline Casts,Urine 1 /lpf (0-2); Ketones,Urine Negative (Negative); Leukocyte Esterase,Urine Negative (Negative); Mucus,Urine Few /hpf; Nitrite,Urine Negative (Negative); PH, Urine 6.5 (5.0-8.0); Protein,Urine Negative (Negative); RBC,Urine 1 /hpf (0-5); Specific Gravity,Urine 1.016 (1.001-1.035); WBC,Urine 1 /hpf (0-5)
[2020-08-31 08:25] LABS: Basophils % (A) 1 %; Eosinophils # (A) 0.1 k/uL (0-0.7); Eosinophils % (A) 2 %; HGB 13.7 gm/dL (13.0-17.5); Lymphocytes # (A) 0.9 k/uL (1.0-4.8); Lymphocytes % (A) 26 %; MCH 32.2 pg (25.0-35.0); MCHC 34.3 g/dL (31.0-37.0); MCV 93.9 fL (80.0-100.0); Mean Platelet Volume 8.4; Monocytes # (A) 0.4 k/uL (0-1.0); Monocytes % (A) 11 %; Neutrophils # (A) 2.1 k/uL (1.3-7.7); Neutrophils % (A) 59 %; Platelet Count 103 k/uL (150-450); RBC 4.26 m/uL (4.30-5.90); RDW 13.3 % (11.5-15.5); WBC 3.5 k/uL (3.8-10.6)
--- NOTE | 2020-08-31 10:02 | CT ---
EXAM: CT Abdomen and Pelvis With Intravenous Contrast CLINICAL HISTORY: Nausea and back pain. Patient states he has a bad gallbladder TECHNIQUE: Axial computed tomography images of the abdomen and pelvis with intravenous contrast. CTDI is 18.37 mGy and DLP is 872.6 mGy-cm. This CT exam was performed using one or more of the following dose reduction techniques: automated exposure control, adjustment of the mA and/or kV according to patient size, and/or use of iterative reconstruction technique. COMPARISON: 2013 FINDINGS: Lung bases: No mass. No consolidation. ABDOMEN: Liver: Unremarkable. Gallbladder and bile ducts: Partially contracted without definite stones. Pancreas: Unremarkable. Spleen: Unremarkable. Adrenals: Unremarkable. Kidneys and ureters: No hydronephrosis. Stomach and bowel: No bowel obstruction. No bowel wall thickening. Mild colonic diverticulosis. PELVIS: Appendix: No evidence of appendicitis. Bladder: Unremarkable. Reproductive: Unremarkable. ABDOMEN and PELVIS: Intraperitoneal space: Unremarkable. Bones/joints: No acute fractures. Soft tissues: Unremarkable. Vasculature: No abdominal aortic aneurysm. Lymph nodes: No enlarged lymph nodes. IMPRESSION: No acute findings. Gallbladder is partially contracted with no definite stones.
[2020-08-31] MEDS ORDERED: SODIUM CHLORIDE 0.9% 1,000 ML BAG ONE (23:59)
== END 2020-08-31 05:07 | disposition home or self-care (01) ==
LOC: EC 01:07
DX: K80.50 Calculus of bile duct without cholangitis or cholecystitis without obstruction (principal); Z88.8 Allergy status to other drugs, medicaments and biological substances; Z88.6 Allergy status to analgesic agent
CPT/HCPCS: 99285; 96360; 96361 ×3; 36415; 80053; 82150; 82550; 82553; 82977; 83690; 84484; 85025; 81003; 74177; Q9967